=== PATIENT | female | born 1990 | race Caucasian/White ===

== ENCOUNTER 2022-08-15 17:22 | Inpatient (IN) ==
[2022-08-15] MEDS ORDERED: OXYTOCIN 30 UNITS/500 ML BAG IV PRN (18:45)
[2022-08-15] MEDS ORDERED: LIDOCAINE 1% LOCAL 20 ML VIAL INFIL PRN (18:45)
[2022-08-15] MEDS ORDERED: MAG SULFATE 6GM BOLUS FROM BAG IV ONE (18:48)
[2022-08-15] MEDS ORDERED: LABETALOL HCL IV 5 MG/ML 20ML IV ONE (19:00)
[2022-08-15] MEDS: LACTATED RINGER'S 1,000 ML IV PRN ×2 (19:00→21:40)
[2022-08-15] MEDS ORDERED: MAGNESIUM SULFATE 40GM / WTR 1,000 ML BAG IV ONE (19:00)
[2022-08-15] MEDS: LABETALOL HCL IV 5 MG/ML 20ML IV STA ×2 (19:04→21:36)
[2022-08-15 19:11] LABS: Hematocrit (blood only) 32.2 % (34.1-44.9); Hemoglobin 10.5 g/dl (12.0-16.0); Mean Corpuscular Hemoglobin 25.5 pg (25.0-34.0); Mean Corpuscular Hgb Conc 32.6 g/dL (32.0-36.0); Mean Corpuscular Volume 78.3 fL (80.0-100.0); Mean Platelet Volume 10.5 fL (9.4-12.3); Platelet Count 255 K/uL (130-400); RDW Coefficient of Variation 14.6 % (11.5-14.5); Red Blood Count 4.11 M/uL (3.93-5.22); White Blood Count 10.36 K/ul (4.8-10.8)
[2022-08-15 19:34] LABS: Alanine Aminotransferase 8 U/L (7-52); Albumin Globulin Ratio 1.1 (0.9-2); Albumin Level 3.1 gm/dl (3.4-5.0); Alkaline Phosphatase 213 U/L (34-104); Anion Gap 9 (3-11); Aspartate Aminotransferase 12 U/L (13-39); BUN Creatinine Ratio 21.3 (10-20); Bilirubin Direct 0.1 mg/dl (0-0.2); Bilirubin,Total 0.4 mg/dl (0.2-1.0); Blood Urea Nitrogen 10 mg/dl (6-23); Carbon Dioxide 21 mmol/L (21-32); Chloride 106 mmol/L (98-107); Creatinine Clr Calc Pharmacy 221.6 ml/min; Est GFR (African American) > 150.0 ml/min; Est GFR (Non-African American) 131.6 ml/min; Globulin 2.9 gm/dl (2.5-4.0); Glucose 106 mg/dl (70-99(Fasting)); Potassium 3.7 mmol/L (3.5-5.1); Sodium 136 mmol/L (136-145); Uric Acid 4.9 mg/dl (2.6-7.2)
--- NOTE | 2022-08-15 19:42 | History & Physical Report ---
Date of Service August 15, 2022 Assessment & Plan (1) Pre-eclampsia or eclampsia superimposed on pre-existing hypertension, antepartum: Plan: Start Magnesium sulfate Induction of labor/Cervidil for ripening Admission and Anticipated Discharge Date Admission Date: August 15, 2022 History of Present Illness Chief Complaint: elevated blood pressure Primary Care Provider: Matilda Donis 32 F P0000 at 37.3 weeks admitted for IOL for gestational hypertension first diagnosed 07/19/22. She denies headache, blurred vision, nausea/vomiting or RUQ pain. GBS is negative. Covid is pending. Allergies Allergy/AdvReac Type Severity Reaction Status Date / Time No Known Allergies Allergy Unknown Unverified 05/10/09 10:45 [id number] Allergy Unknown Uncoded 09/25/02 15:12 Home Medications Medication Instructions Recorded Confirmed Type Amphetamine Asp/Sulf/Dextramph 50 mg PO DAILY ##0 05/10/09 History (Adderall Ext Rel *) cetirizine 10 mg capsule (Zyrtec) 10 mg PO DAILY PRN allergies 08/15/22 08/15/22 History levothyroxine 100 mcg PO DAILY 08/15/22 08/15/22 History omeprazole magnesium 20 mg 20 mg PO DAILY 08/15/22 08/15/22 History tablet,delayed release (Prilosec OTC) vit 10-iron fum-folic 1 tab PO 08/15/22 History Patient History Medical History ADHD (attention deficit hyperactivity disorder) Allergic rhinitis Antepartum anemia GERD (gastroesophageal reflux disease) Gestational hypertension Hypothyroid Obesity Psoriasis Surgical History H/O foot surgery History of tonsillectomy and adenoidectomy [place] teeth removed Social History Smoking Status: Former smoker Hx Alcohol Use: No Hx Substance Use: No Preferred Language: [place] [employer] 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 Beliefs That Will Affect Care: None marital status: Single Current Living Situation: Significant Other Assistive Devices: None OB History primigravida [employer] History neg Review of Systems All systems reviewed & are unremarkable except as noted in HPI & below Physical Exam Constitutional: WD/WN, vitals as above Respiratory: normal respiratory effort, lungs clear to auscultation Cardiovascular: Rate/Rhythm: regular rate and regular rhythm Gastrointestinal (Abdomen): Inspection/Auscultation: abdomen normal to inspection no abdominal pain, no RUQ pain Skin: no rashes, warm and dry Neurologic: patellar DTR's 2+ bilat, sensation intact Psychiatric: A+Ox3, euthymic affect Genitourinary: no vaginal lesions, no adnexal mass Manual OB Exam: + cervical dilation fingertip, + cervical effacement 30% and + station high Cervix closed/thick and high Results & Data ([facility]) Vital Signs (Past 12 Hours) Vital Signs Temp Pulse Resp BP 08/15/22 17:49 36.8 C 22 08/15/22 19:33 88 08/15/22 19:33 146/85 H 08/15/22 19:16 88 08/15/22 19:16 140/88 08/15/22 19:12 82 08/15/22 19:12 148/92 H 08/15/22 19:06 84 08/15/22 19:06 142/92 H 08/15/22 18:56 85 08/15/22 18:56 157/93 H 08/15/22 18:46 78 08/15/22 18:46 168/101 H 08/15/22 18:36 80 08/15/22 18:36 170/98 H 08/15/22 18:07 84 08/15/22 18:07 153/105 H 08/15/22 17:55 91 H 08/15/22 17:55 152/97 H 08/15/22 17:46 82 157/97 H 08/15/22 17:34 83 159/105 H Laboratory Results Laboratory Results - last 24 hr 08/15/22 08/15/22 08/15/22 18:05 18:05 18:05 WBC RBC Hgb Hct MCV MCH MCHC RDW Std Deviation RDW Coeff of Anamaria Plt Count MPV Sodium Potassium Chloride Carbon Dioxide Anion Gap BUN Creatinine Est Cr Clr Drug Dosing Est GFR ( Amer) Est GFR (Non-Af Amer) BUN/Creatinine Ratio Glucose Uric Acid Calcium Total Bilirubin Direct Bilirubin AST ALT Alkaline Phosphatase Lactate Dehydrogenase Total Protein Albumin Globulin Albumin/Globulin Ratio Urine Color Pending Urine Appearance Pending Urine pH Pending Ur Specific Dix Pending Urine Protein Pending Urine Glucose (UA) Pending Urine Ketones Pending Urine Blood Pending Urine Nitrite Pending Urine Bilirubin Pending Urine Urobilinogen Pending Ur Leukocyte Esterase Pending Ur Random Creatinine Pending U Random Total Protein Pending Protein/Creatinin Ratio Pending SARS-CoV-2, RNA, NAAT Pending 08/15/22 08/15/22 08/15/22 19:03 19:03 19:03 WBC 10.36 RBC 4.11 Hgb 10.5 L Hct 32.2 L MCV 78.3 L MCH 25.5 MCHC 32.6 RDW Std Deviation 41.0 RDW Coeff of Anamaria 14.6 H Plt Count 255 MPV 10.5 Sodium 136 Potassium 3.7 Chloride 106 Carbon Dioxide 21 Anion Gap 9 BUN 10 Creatinine 0.47 L Est Cr Clr Drug Dosing 221.6 Est GFR ( Amer) > 150.0 Est GFR (Non-Af Amer) 131.6 BUN/Creatinine Ratio 21.3 H Glucose 106 H Uric Acid 4.9 Calcium 9.0 Total Bilirubin 0.4 Direct Bilirubin 0.1 AST 12 L ALT 8 Alkaline Phosphatase 213 H Lactate Dehydrogenase Pending Total Protein 6.0 Albumin 3.1 L Globulin 2.9 Albumin/Globulin Ratio 1.1 Urine Color Urine Appearance Urine pH Ur Specific Dix Urine Protein Urine Glucose (UA) Urine Ketones Urine Blood Urine Nitrite Urine Bilirubin Urine Urobilinogen Ur Leukocyte Esterase Ur Random Creatinine U Random Total Protein Protein/Creatinin Ratio SARS-CoV-2, RNA, NAAT Code Status & VTE Plan VTE Prophylaxis Plan VTE Prophylaxis will be ordered: No Monitoring External Monitor Cat 1
[2022-08-15] MEDS: MAGNESIUM SULFATE / WTR 40 GM/1,000 ML BAG IV SCH (19:43)
[2022-08-15 19:59] LABS: Appearance Urine Clear (Clear); Bilirubin Urine Negative (Negative); Blood Urine Negative (Negative); Color Urine Yellow; Creatinine Urine Random 41.6 mg/dl; Glucose Urine UA Negative (Negative); Ketones Urine Negative (Negative); Leukocyte Esterase Urine Negative (Negative); Nitrite Urine Negative (Negative); Protein Creatinine Ratio Urine 0.4 (0-0.2); Protein Urine Negative (Negative); Specific Gravity Urine 1.011 (1.000-1.030); Total Protein Urine Random 17.2 mg/dl (0-11.9); Urobilinogen Urine Negative (Negative); pH Urine 5.5 (4.5-7.5)
[2022-08-15] MEDS ORDERED: DINOPROSTONE 10 MG INSERT PV ONE (20:04)
--- NOTE | 2022-08-15 20:22 | Labor Progress Brief Note ---
Date of Service August 15, 2022 Assessment & Plan Admission and Anticipated Discharge Date Admission Date: August 15, 2022 Physical Exam Genitourinary: OB Exam Monitor Tracing: + external FHT monitor used, + external uterine monitor used, + category I and + normal FHT variability Cervidil 10 mg placed vaginally Results & Data ([facility]) Vital Signs (Past 12 Hours) Vital Signs Temp Pulse Resp BP 08/15/22 20:15 18 08/15/22 20:00 18 08/15/22 19:45 18 08/15/22 19:30 18 08/15/22 19:13 18 08/15/22 17:49 36.8 C 22 08/15/22 20:02 96 H 08/15/22 20:02 142/85 H 08/15/22 19:47 90 08/15/22 19:47 140/79 08/15/22 19:00 18 08/15/22 19:00 36.6 C 18 08/15/22 19:33 88 08/15/22 19:33 146/85 H 08/15/22 19:16 88 08/15/22 19:16 140/88 08/15/22 19:12 82 08/15/22 19:12 148/92 H 08/15/22 19:06 84 08/15/22 19:06 142/92 H 08/15/22 18:56 85 08/15/22 18:56 157/93 H 08/15/22 18:46 78 08/15/22 18:46 168/101 H 08/15/22 18:36 80 08/15/22 18:36 170/98 H 08/15/22 18:07 84 08/15/22 18:07 153/105 H 08/15/22 17:55 91 H 08/15/22 17:55 152/97 H 08/15/22 17:46 82 157/97 H 08/15/22 17:34 83 159/105 H
[2022-08-16] MEDS: LACTATED RINGER'S 1,000 ML IV PRN ×2 (05:06→13:11)
[2022-08-16] MEDS ORDERED: LABETALOL HCL IV 5 MG/ML 20ML IV STA ×4 (08:24→20:05)
--- NOTE | 2022-08-16 08:27 | Progress Note ---
Date of Service August 16, 2022 Assessment & Plan (1) Pre-eclampsia or eclampsia superimposed on pre-existing hypertension, antepartum: Plan: Continue Mag IV labetalol 20mg stat Andujar, SCDs, Labs q12 Admission and Anticipated Discharge Date Admission Date: August 15, 2022 Subjective Noted multiple sever range BP, no Andujar in place, patient has been ambulating on Mag Results & Data ([facility]) Vital Signs (Past 12 Hours) Vital Signs Temp Pulse Resp BP Pulse Ox 08/16/22 07:10 18 08/16/22 06:00 18 08/16/22 05:00 18 08/16/22 04:00 18 08/16/22 02:00 18 08/16/22 01:00 18 08/16/22 00:00 18 08/15/22 23:00 18 08/15/22 22:01 20 08/15/22 21:01 20 08/16/22 08:23 80 95 08/16/22 08:18 80 96 08/16/22 08:19 80 162/95 H 08/16/22 08:17 80 167/97 H 08/16/22 08:13 81 95 08/16/22 08:08 81 97 08/16/22 08:03 77 97 08/16/22 08:04 77 169/94 H 08/16/22 07:58 78 97 08/16/22 07:53 79 96 08/16/22 07:50 81 187/98 H 08/16/22 07:48 85 96 08/16/22 07:43 85 98 08/16/22 07:38 84 96 08/16/22 07:33 76 97 08/16/22 07:28 77 97 08/16/22 07:23 76 97 08/16/22 07:20 36.8 C 83 18 143/90 H 08/16/22 07:18 84 96 08/16/22 06:50 79 146/91 H 08/16/22 06:20 80 153/95 H 08/16/22 05:52 80 156/93 H 08/16/22 05:50 80 170/101 H 08/16/22 05:20 74 148/88 H 08/16/22 04:49 93 H 155/90 H 08/16/22 04:19 86 148/91 H 08/16/22 03:30 36.8 C 01/04/23 03:51 82 170/93 H 08/16/22 03:19 85 141/87 H 08/16/22 03:00 18 08/16/22 03:00 18 08/16/22 02:30 18 08/16/22 02:30 18 08/16/22 02:49 80 140/96 08/16/22 02:20 86 153/94 H 08/16/22 01:50 86 130/72 08/16/22 01:20 83 130/68 08/16/22 00:50 81 120/64 08/16/22 00:24 80 129/60 08/15/22 23:49 92 H 08/15/22 23:49 114/74 08/15/22 23:20 81 08/15/22 23:20 114/60 08/15/22 23:00 36.8 C 08/15/22 22:50 88 08/15/22 22:50 141/87 H 08/15/22 22:19 83 08/15/22 22:19 145/88 H 08/15/22 22:14 82 08/15/22 22:14 145/88 H 08/15/22 22:10 79 08/15/22 22:10 144/90 H 08/15/22 22:03 85 08/15/22 22:03 154/93 H 08/15/22 21:58 82 08/15/22 21:58 146/86 H 08/15/22 21:54 79 08/15/22 21:54 142/90 H 08/15/22 21:48 79 08/15/22 21:48 158/93 H 08/15/22 21:43 76 08/15/22 21:43 155/90 H 08/15/22 21:39 80 08/15/22 21:39 162/92 H 08/15/22 21:30 86 08/15/22 21:30 174/90 H 08/15/22 21:17 85 08/15/22 21:17 163/100 H
[2022-08-16 08:42] LABS: Hematocrit (blood only) 32.1 % (34.1-44.9); Hemoglobin 10.7 g/dl (12.0-16.0); Mean Corpuscular Hgb Conc 33.3 g/dL (32.0-36.0); Mean Corpuscular Volume 77.9 fL (80.0-100.0); Mean Platelet Volume 10.4 fL (9.4-12.3); Platelet Count 255 K/uL (130-400); RDW Coefficient of Variation 14.7 % (11.5-14.5); RDW Standard Deviation 41.4 fL (36.4-46.3); Red Blood Count 4.12 M/uL (3.93-5.22); White Blood Count 9.42 K/ul (4.8-10.8)
[2022-08-16] MEDS: LEVOTHYROXINE SODIUM 100 MCG TABLET PO SCH (08:46)
[2022-08-16] MEDS: ACETAMINOPHEN 500 MG TAB PO PRN ×2 (08:48→14:39)
[2022-08-16 09:07] LABS: Alanine Aminotransferase 9 U/L (7-52); Albumin Globulin Ratio 1.1 (0.9-2); Albumin Level 3.2 gm/dl (3.4-5.0); Alkaline Phosphatase 209 U/L (34-104); Anion Gap 9 (3-11); Aspartate Aminotransferase 11 U/L (13-39); BUN Creatinine Ratio 13.3 (10-20); Bilirubin,Total 0.5 mg/dl (0.2-1.0); Blood Urea Nitrogen 6 mg/dl (6-23); Calcium 7.6 mg/dl (8.5-10.1); Carbon Dioxide 21 mmol/L (21-32); Chloride 105 mmol/L (98-107); Creatinine Clr Calc Pharmacy 231.4 ml/min; Est GFR (African American) > 150.0 ml/min; Est GFR (Non-African American) 133.5 ml/min; Globulin 2.9 gm/dl (2.5-4.0); Glucose 104 mg/dl (70-99(Fasting)); Potassium 3.6 mmol/L (3.5-5.1); Sodium 135 mmol/L (136-145); Total Protein 6.1 gm/dl (6.0-8.3)
--- NOTE | 2022-08-16 09:40 | Labor Progress Brief Note ---
Date of Service August 16, 2022 Subjective Patient having headache and neck pain, just gave Tylenol Cervidil has been pulled by nursing Assessment & Plan (1) Pre-eclampsia or eclampsia superimposed on pre-existing hypertension, antepartum: Plan: Continue Mag IV labetalol 20mg stat (last dose wasn't given because repeat BP was non severe Andujar, SCDs, Labs q12 Misoprostol 25 mcg SL q4h, then pit and AROM, epidural if patient requests Anticipate Admission and Anticipated Discharge Date Admission Date: August 15, 2022 Physical Exam Physical Exam: General: Alert, no acute distress, oriented x3 Lungs: Clear to auscultation bilaterally Cardiovascular: Regular rate and rhythm no added sounds Abdomen: Soft nontender, obese Extremities: Positive pedal pulses, +2 DTRs Urine output adequate Genitourinary: heart tracing: Baseline 130, moderate variability, positive accelerations, no decelerations, category 1 tracing Tocometer: Irregular contractions Cervix: 3 Results & Data ([facility] [place]) Vital Signs (Past 12 Hours) Vital Signs Temp Pulse Resp BP Pulse Ox 08/16/22 07:10 18 08/16/22 06:00 18 08/16/22 05:00 18 08/16/22 04:00 18 08/16/22 02:00 18 08/16/22 01:00 18 08/16/22 00:00 18 08/15/22 23:00 18 08/15/22 22:01 20 08/16/22 09:33 80 97 08/16/22 09:28 82 96 08/16/22 09:23 82 97 08/16/22 09:18 80 95 08/16/22 09:17 78 168/89 H 08/16/22 09:13 83 95 08/16/22 09:14 82 94 08/16/22 09:08 87 96 08/16/22 09:06 82 94 08/16/22 09:03 83 95 08/16/22 08:58 86 95 08/16/22 08:53 78 95 08/16/22 08:48 83 94 08/16/22 08:49 86 94 08/16/22 08:45 80 165/83 H 08/16/22 08:43 85 95 08/16/22 08:44 82 94 08/16/22 08:41 75 144/86 H 08/16/22 08:38 78 94 08/16/22 08:33 82 94 08/16/22 08:00 18 08/16/22 08:00 18 08/16/22 08:28 77 95 08/16/22 08:23 80 95 08/16/22 08:18 80 96 08/16/22 08:19 80 162/95 H 08/16/22 08:17 80 167/97 H 08/16/22 08:13 81 95 08/16/22 08:08 81 97 08/16/22 08:03 77 97 08/16/22 08:04 77 169/94 H 08/16/22 07:58 78 97 08/16/22 07:53 79 96 08/16/22 07:50 81 187/98 H 08/16/22 07:48 85 96 08/16/22 07:43 85 98 08/16/22 07:38 84 96 08/16/22 07:33 76 97 08/16/22 07:28 77 97 08/16/22 07:23 76 97 08/16/22 07:20 36.8 C 83 18 143/90 H 08/16/22 07:18 84 96 08/16/22 06:50 79 146/91 H 08/16/22 06:20 80 153/95 H 08/16/22 05:52 80 156/93 H 08/16/22 05:50 80 170/101 H 08/16/22 05:20 74 148/88 H 08/16/22 04:49 93 H 155/90 H 08/16/22 04:19 86 148/91 H 08/16/22 03:30 36.8 C 08/16/22 03:51 82 170/93 H 08/16/22 03:19 85 141/87 H 08/16/22 03:00 18 08/16/22 03:00 18 08/16/22 02:30 18 08/16/22 02:30 18 08/16/22 02:49 80 140/96 08/16/22 02:20 86 153/94 H 08/16/22 01:50 86 130/72 08/16/22 01:20 83 130/68 08/16/22 00:50 81 120/64 08/16/22 00:24 80 129/60 08/15/22 23:49 92 H 08/15/22 23:49 114/74 08/15/22 23:20 81 08/15/22 23:20 114/60 08/15/22 23:00 36.8 C 08/15/22 22:50 88 08/15/22 22:50 141/87 H 08/15/22 22:19 83 08/15/22 22:19 145/88 H 08/15/22 22:14 82 08/15/22 22:14 145/88 H 08/15/22 22:10 79 08/15/22 22:10 144/90 H 08/15/22 22:03 85 08/15/22 22:03 154/93 H 08/15/22 21:58 82 08/15/22 21:58 146/86 H 08/15/22 21:54 79 08/15/22 21:54 142/90 H 08/15/22 21:48 79 08/15/22 21:48 158/93 H 08/15/22 21:43 76 08/15/22 21:43 155/90 H 08/15/22 21:39 80 08/15/22 21:39 162/92 H
[2022-08-16] MEDS: miSOPROStoL 25 MCG TAB SL SCH ×4 (10:32→22:33)
[2022-08-16] MEDS: MAGNESIUM SULFATE / WTR 40 GM/1,000 ML BAG IV SCH (10:49)
--- NOTE | 2022-08-16 16:48 | Labor Progress Brief Note ---
Date of Service August 16, 2022 Subjective Patient comfortable in bed at this time, no complaints Assessment & Plan (1) Pre-eclampsia or eclampsia superimposed on pre-existing hypertension, antepartum: Plan: Continue Mag Has been treated with IV labetalol 20 mg IV push x2 doses Andujar, SCDs, Labs q12 Misoprostol 25 mcg SL q4h (has had 2 doses so far, next dose scheduled for 6:30 PM), then pit and AROM, epidural if patient requests Anticipate Admission and Anticipated Discharge Date Admission Date: August 15, 2022 Physical Exam Physical Exam: General: Alert, no acute distress, oriented x3 Lungs: Clear to auscultation bilaterally Cardiovascular: Regular rate and rhythm no added sounds Abdomen: Soft nontender, obese Extremities: Positive pedal pulses, +2 DTRs Urine output adequate (350mls last hr) Genitourinary: heart tracing: Baseline 1 25- 30, moderate variability, positive accelerations, no decelerations, category 1 tracing Tocometer: Contractions irregular Cervix: 09/11/ Results & Data ([facility]) Vital Signs (Past 12 Hours) Vital Signs Temp Pulse Resp BP Pulse Ox 08/16/22 14:00 18 08/16/22 13:00 16 08/16/22 12:00 16 08/16/22 11:00 20 08/16/22 10:00 18 08/16/22 07:10 18 08/16/22 06:00 18 08/16/22 05:00 18 08/16/22 16:43 74 95 08/16/22 16:39 78 92 08/16/22 16:38 77 94 08/16/22 16:33 80 93 08/16/22 16:32 74 147/89 H 08/16/22 16:28 79 95 08/16/22 16:27 75 141/84 H 08/16/22 16:24 77 92 08/16/22 16:23 74 144/84 H 93 08/16/22 16:18 74 147/85 H 93 08/16/22 16:13 77 92 08/16/22 16:12 74 141/81 H 08/16/22 16:08 82 138/79 94 08/16/22 16:03 78 95 08/16/22 16:01 82 163/93 H 08/16/22 15:58 83 96 08/16/22 15:53 79 95 08/16/22 15:48 78 96 08/16/22 15:43 77 164/88 H 96 08/16/22 15:38 77 96 08/16/22 15:33 81 96 08/16/22 15:28 78 95 08/16/22 15:23 77 96 08/16/22 15:18 83 99 08/16/22 15:13 86 97 08/16/22 15:12 74 18 157/97 H 08/16/22 15:08 86 100 08/16/22 15:00 18 08/16/22 15:00 36.7 C 18 08/16/22 15:03 81 98 08/16/22 14:58 80 97 08/16/22 14:53 76 94 08/16/22 14:48 82 96 08/16/22 14:43 79 96 08/16/22 14:38 78 95 08/16/22 14:33 81 95 08/16/22 14:28 79 95 08/16/22 14:23 84 95 08/16/22 14:18 78 96 08/16/22 14:13 80 93 08/16/22 14:12 81 138/85 94 08/16/22 14:08 77 94 08/16/22 14:04 85 94 08/16/22 14:03 84 95 08/16/22 13:59 84 94 08/16/22 13:58 86 93 08/16/22 13:53 77 93 08/16/22 13:48 78 93 08/16/22 13:43 93 08/16/22 13:43 77 08/16/22 13:43 77 94 08/16/22 13:42 80 141/88 H 08/16/22 13:38 80 92 08/16/22 13:33 79 92 08/16/22 13:30 78 94 08/16/22 13:28 83 94 08/16/22 13:23 76 93 08/16/22 13:24 77 94 08/16/22 13:18 94 08/16/22 13:18 78 08/16/22 13:18 75 94 08/16/22 13:13 75 94 08/16/22 13:12 94 08/16/22 13:12 73 08/16/22 13:12 72 143/84 H 08/16/22 13:08 79 95 08/16/22 13:07 77 94 08/16/22 13:03 74 94 08/16/22 13:01 74 94 08/16/22 12:58 79 94 08/16/22 12:55 87 94 08/16/22 12:53 83 95 08/16/22 12:50 78 94 08/16/22 12:48 80 94 08/16/22 12:43 94 08/16/22 12:43 82 08/16/22 12:43 81 94 08/16/22 12:42 79 20 141/84 H 08/16/22 12:38 95 08/16/22 12:38 79 08/16/22 12:38 82 94 08/16/22 12:33 93 08/16/22 12:33 81 08/16/22 12:33 80 93 08/16/22 12:28 83 94 08/16/22 12:23 85 93 08/16/22 12:18 81 93 08/16/22 12:13 93 08/16/22 12:13 80 08/16/22 12:13 76 140/77 08/16/22 12:11 78 93 08/16/22 12:08 77 94 08/16/22 12:03 76 94 08/16/22 11:58 79 92 08/16/22 11:53 76 93 08/16/22 11:50 74 94 08/16/22 11:48 76 93 08/16/22 11:43 94 08/16/22 11:43 76 08/16/22 11:43 77 137/81 08/16/22 11:42 77 94 08/16/22 11:38 81 94 08/16/22 11:36 80 94 08/16/22 11:33 77 97 08/16/22 11:28 76 96 08/16/22 11:23 79 96 08/16/22 11:18 79 95 08/16/22 11:13 79 95 08/16/22 11:12 75 141/86 H 08/16/22 11:08 83 97 08/16/22 11:03 82 97 08/16/22 11:00 20 08/16/22 11:00 36.8 C 20 08/16/22 10:58 81 97 08/16/22 10:53 79 95 01/04/23 10:48 75 96 08/16/22 10:44 80 93 08/16/22 10:43 79 96 08/16/22 10:42 76 137/81 08/16/22 10:38 81 97 08/16/22 10:33 77 95 08/16/22 10:28 84 94 08/16/22 10:27 74 94 08/16/22 10:23 71 94 08/16/22 10:18 69 95 08/16/22 10:19 72 94 08/16/22 10:13 75 94 08/16/22 10:08 69 147/84 H 94 08/16/22 10:06 74 94 08/16/22 10:03 93 08/16/22 10:03 74 08/16/22 10:03 75 143/84 H 08/16/22 10:00 71 18 94 08/16/22 09:58 96 08/16/22 09:58 74 08/16/22 09:58 75 143/86 H 08/16/22 09:53 74 96 08/16/22 09:54 76 18 139/80 08/16/22 09:48 95 08/16/22 09:48 79 08/16/22 09:48 76 137/78 94 08/16/22 09:43 96 08/16/22 09:43 80 08/16/22 09:43 75 144/82 H 93 08/16/22 09:38 80 143/84 H 96 08/16/22 09:33 80 97 08/16/22 09:28 82 96 08/16/22 09:23 82 97 08/16/22 09:18 80 95 08/16/22 09:17 78 168/89 H 08/16/22 09:13 83 95 08/16/22 09:14 82 94 08/16/22 09:08 87 96 08/16/22 09:06 82 94 08/16/22 09:00 18 08/16/22 09:03 83 95 08/16/22 08:58 86 95 08/16/22 08:53 78 95 08/16/22 08:48 83 94 08/16/22 08:49 86 94 08/16/22 08:45 80 165/83 H 08/16/22 08:43 85 95 08/16/22 08:44 82 94 08/16/22 08:41 75 144/86 H 08/16/22 08:38 78 94 08/16/22 08:33 82 94 08/16/22 08:00 18 08/16/22 08:00 18 08/16/22 08:28 77 95 08/16/22 08:23 80 95 08/16/22 08:18 80 96 08/16/22 08:19 80 162/95 H 08/16/22 08:17 80 167/97 H 08/16/22 08:13 81 95 08/16/22 08:08 81 97 08/16/22 08:03 77 97 08/16/22 08:04 77 169/94 H 08/16/22 07:58 78 97 08/16/22 07:53 79 96 08/16/22 07:50 81 187/98 H 08/16/22 07:48 85 96 08/16/22 07:43 85 98 08/16/22 07:38 84 96 08/16/22 07:33 76 97 08/16/22 07:28 77 97 08/16/22 07:23 76 97 08/16/22 07:20 36.8 C 83 18 143/90 H 08/16/22 07:18 84 96 08/16/22 06:50 79 146/91 H 08/16/22 06:20 80 153/95 H 08/16/22 05:52 80 156/93 H 08/16/22 05:50 80 170/101 H 08/16/22 05:20 74 148/88 H 08/16/22 04:49 93 H 155/90 H
[2022-08-17] MEDS: miSOPROStoL 25 MCG TAB SL SCH ×4 (02:16→19:49)
[2022-08-17] MEDS: LACTATED RINGER'S 1,000 ML IV PRN ×2 (02:24→11:59)
[2022-08-17] MEDS ORDERED: OXYTOCIN 30 UNITS/500 ML BAG IV PRN (04:10)
[2022-08-17] MEDS ORDERED: LABETALOL HCL IV 5 MG/ML 20ML IV STA ×2 (04:49→05:55)
[2022-08-17] MEDS: MAGNESIUM SULFATE / WTR 40 GM/1,000 ML BAG IV SCH ×2 (05:02→23:52)
[2022-08-17] MEDS: LEVOTHYROXINE SODIUM 100 MCG TABLET PO SCH (06:15)
[2022-08-17 06:30] LABS: Hematocrit (blood only) 32.2 % (34.1-44.9); Hemoglobin 10.6 g/dl (12.0-16.0); Mean Corpuscular Hemoglobin 25.7 pg (25.0-34.0); Mean Corpuscular Hgb Conc 32.9 g/dL (32.0-36.0); Mean Platelet Volume 10.3 fL (9.4-12.3); Platelet Count 250 K/uL (130-400); RDW Standard Deviation 42.2 fL (36.4-46.3); Red Blood Count 4.13 M/uL (3.93-5.22)
[2022-08-17 06:49] LABS: Alanine Aminotransferase 8 U/L (7-52); Alkaline Phosphatase 205 U/L (34-104); Anion Gap 9 (3-11); Aspartate Aminotransferase 11 U/L (13-39); BUN Creatinine Ratio 11.4 (10-20); Bilirubin,Total 0.6 mg/dl (0.2-1.0); Blood Urea Nitrogen 5 mg/dl (6-23); Calcium 7.4 mg/dl (8.5-10.1); Carbon Dioxide 21 mmol/L (21-32); Chloride 104 mmol/L (98-107); Creatinine Clr Calc Pharmacy 236.7 ml/min; Est GFR (African American) > 150.0 ml/min; Est GFR (Non-African American) 134.5 ml/min; Globulin 2.9 gm/dl (2.5-4.0); Glucose 100 mg/dl (70-99(Fasting)); Potassium 3.7 mmol/L (3.5-5.1); Sodium 134 mmol/L (136-145); Total Protein 5.9 gm/dl (6.0-8.3)
--- NOTE | 2022-08-17 07:11 | Labor Progress Brief Note ---
Date of Service August 17, 2022 Subjective Patient comfortable in bed at this time, more pain now with contractions Assessment & Plan (1) Pre-eclampsia or eclampsia superimposed on pre-existing hypertension, antepartum: Plan: Continue Mag Has been treated with IV labetalol for severe range pressures, next dose now Andujar, SCDs, Labs q12 Misoprostol 25 mcg SL Continue pit then AROM, epidural if patient requests Anticipate Admission and Anticipated Discharge Date Admission Date: August 15, 2022 Physical Exam Physical Exam: General: Alert, no acute distress, oriented x3 Lungs: Clear to auscultation bilaterally Cardiovascular: Regular rate and rhythm no added sounds Abdomen: Soft nontender, obese Extremities: Positive pedal pulses, +2 DTRs, 2+ edema Urine output adequate Genitourinary: heart tracing: Baseline: 130, moderate variability, positive accelerations, no decelerations, category 1 tracing Tocometer: Contractions every 2 to 3 minutes, oxytocin at 4 milliunits/h Cervix: 1-2/40/-3, sutures felt Results & Data ([facility]) Vital Signs (Past 12 Hours) Vital Signs Temp Pulse Resp BP Pulse Ox 08/17/22 06:04 18 08/17/22 05:00 18 08/17/22 04:00 18 08/17/22 02:10 18 08/17/22 01:02 16 08/17/22 00:01 16 08/16/22 23:00 18 08/16/22 22:00 18 08/16/22 21:00 18 08/16/22 20:01 18 08/17/22 07:00 18 08/17/22 07:00 18 08/17/22 07:03 97 08/17/22 07:03 86 08/17/22 07:03 79 168/91 H 08/17/22 07:02 83 166/88 H 08/17/22 06:58 67 91 08/17/22 06:53 68 92 08/17/22 06:48 74 165/89 H 95 08/17/22 06:46 71 87 L 08/17/22 06:43 72 93 08/17/22 06:38 70 96 08/17/22 06:33 71 94 08/17/22 06:28 76 95 08/17/22 06:23 66 97 08/17/22 06:18 72 96 08/17/22 06:16 71 147/84 H 08/17/22 06:13 80 96 08/17/22 06:12 77 162/77 H 08/17/22 06:08 78 96 08/17/22 06:03 96 08/17/22 06:03 80 08/17/22 06:03 78 130/65 08/17/22 05:58 94 08/17/22 05:58 78 08/17/22 05:58 76 155/89 H 08/17/22 05:53 81 95 08/17/22 05:52 76 179/88 H 08/17/22 05:48 78 94 08/17/22 05:30 18 08/17/22 05:30 18 08/17/22 05:47 75 150/84 H 08/17/22 05:43 81 162/85 H 95 08/17/22 05:38 74 93 08/17/22 05:37 70 134/78 08/17/22 05:33 94 08/17/22 05:33 76 08/17/22 05:33 73 139/75 05 05:28 94 08/17/22 05:28 75 08/17/22 05:28 72 135/79 05 05:23 80 93 05 05:22 73 135/79 08/17/22 05:18 78 93 08/17/22 05:17 74 139/78 08/17/22 05:13 83 94 08/17/22 05:08 75 95 08/17/22 05:07 75 143/79 H 08/17/22 05:03 74 95 08/17/22 04:58 75 96 08/17/22 04:53 79 95 08/17/22 04:48 82 92 05 04:45 85 166/80 H 05 04:43 80 92 05 04:38 81 95 05 04:37 82 169/79 H 08/17/22 04:33 78 93 05 04:28 82 92 08/17/22 04:23 79 91 05 04:18 81 92 05 04:13 84 93 05 04:08 87 91 08/17/22 04:00 36.8 C 08/17/22 04:06 80 139/70 08/17/22 04:03 86 92 08/17/22 03:58 84 92 08/17/22 03:56 85 92 08/17/22 03:53 90 95 08/17/22 03:51 81 92 08/17/22 03:48 83 92 08/17/22 03:45 79 92 08/17/22 03:43 81 92 08/17/22 03:40 83 92 08/17/22 03:38 83 94 08/17/22 03:36 86 139/68 08/17/22 03:34 87 92 08/17/22 03:33 84 93 08/17/22 03:28 86 91 08/17/22 03:23 92 08/17/22 03:23 81 08/17/22 03:23 83 92 08/17/22 03:18 92 08/17/22 03:18 84 08/17/22 03:18 83 92 08/17/22 03:13 77 93 08/17/22 03:12 81 91 08/17/22 03:08 78 93 08/17/22 03:07 89 143/89 H 08/17/22 03:06 79 92 08/17/22 03:03 82 94 08/17/22 03:01 80 92 08/17/22 02:58 85 92 08/17/22 02:53 83 93 08/17/22 02:54 81 92 08/17/22 02:48 93 08/17/22 02:48 78 08/17/22 02:48 78 92 08/17/22 02:43 82 92 08/17/22 02:42 81 92 08/17/22 02:38 82 94 08/17/22 02:36 81 137/71 08/17/22 02:33 79 93 08/17/22 02:31 80 92 08/17/22 02:28 75 93 08/17/22 02:23 76 94 08/17/22 02:19 77 92 08/17/22 02:18 81 95 08/17/22 02:13 78 90 08/17/22 02:11 74 92 08/17/22 02:08 71 91 08/17/22 02:07 83 148/83 H 08/17/22 02:06 76 92 08/17/22 02:03 85 94 08/17/22 02:00 75 92 08/17/22 01:58 80 93 08/17/22 01:54 79 92 08/17/22 01:53 83 90 08/17/22 01:48 76 92 08/17/22 01:49 77 92 08/17/22 01:43 93 08/17/22 01:43 75 08/17/22 01:43 71 92 08/17/22 01:38 92 08/17/22 01:38 79 08/17/22 01:38 85 92 08/17/22 01:36 81 144/84 H 08/17/22 01:33 80 94 08/17/22 01:28 79 92 08/17/22 01:23 80 92 08/17/22 01:19 80 92 08/17/22 01:18 80 92 08/17/22 01:13 78 92 08/17/22 01:14 78 92 08/17/22 01:08 93 08/17/22 01:08 74 08/17/22 01:08 73 92 08/17/22 01:06 75 146/81 H 08/17/22 01:03 81 94 08/17/22 01:01 83 90 08/17/22 00:58 74 95 08/17/22 00:56 82 92 08/17/22 00:53 86 88 L 08/17/22 00:50 86 89 L 08/17/22 00:48 84 88 L 08/17/22 00:45 76 91 08/17/22 00:43 73 93 08/17/22 00:40 73 92 08/17/22 00:38 86 95 08/17/22 00:37 72 144/79 H 08/17/22 00:34 75 91 08/17/22 00:33 72 92 08/17/22 00:28 74 92 08/17/22 00:23 71 92 08/17/22 00:21 69 92 08/17/22 00:18 75 91 08/17/22 00:15 74 92 08/17/22 00:13 81 95 08/17/22 00:08 79 97 08/17/22 00:07 71 157/87 H 08/17/22 00:05 77 92 08/17/22 00:03 81 95 08/17/22 00:00 72 91 01/04/23 23:58 70 91 08/16/22 23:54 73 92 08/16/22 23:53 75 94 08/16/22 23:48 73 93 08/16/22 23:49 71 92 08/16/22 23:43 70 91 08/16/22 23:38 79 93 08/16/22 23:37 73 92 08/16/22 23:36 76 159/90 H 08/16/22 23:33 72 94 08/16/22 23:32 73 92 08/16/22 23:28 71 93 08/16/22 23:23 77 93 08/16/22 23:21 71 92 08/16/22 23:18 73 93 08/16/22 23:15 76 92 08/16/22 23:13 72 92 08/16/22 23:08 71 92 08/16/22 23:09 74 92 08/16/22 23:06 79 157/90 H 08/16/22 23:02 72 92 08/16/22 23:03 70 94 08/16/22 23:00 36.6 C 08/16/22 22:58 79 96 08/16/22 22:53 86 96 08/16/22 22:48 72 93 08/16/22 22:43 76 93 08/16/22 22:38 79 97 08/16/22 22:37 70 123/73 08/16/22 22:33 70 97 08/16/22 22:28 69 95 08/16/22 22:23 82 97 08/16/22 22:18 72 95 08/16/22 22:13 75 94 08/16/22 22:08 76 94 08/16/22 22:06 72 142/92 H 08/16/22 22:03 73 96 08/16/22 21:58 85 96 08/16/22 21:53 70 91 08/16/22 21:49 73 92 08/16/22 21:48 65 95 08/16/22 21:43 68 93 08/16/22 21:40 75 91 08/16/22 21:38 68 94 08/16/22 21:36 67 140/77 08/16/22 21:33 71 94 08/16/22 21:28 71 94 08/16/22 21:23 73 94 08/16/22 21:18 75 96 08/16/22 21:13 73 95 08/16/22 21:08 72 96 08/16/22 21:06 70 157/94 H 08/16/22 21:03 85 95 08/16/22 21:00 75 149/90 H 08/16/22 20:58 77 95 08/16/22 20:55 73 156/90 H 08/16/22 20:53 74 96 08/16/22 20:50 92 08/16/22 20:50 74 08/16/22 20:50 71 147/90 H 08/16/22 20:48 70 97 08/16/22 20:45 73 150/94 H 08/16/22 20:43 80 93 08/16/22 20:40 72 144/92 H 08/16/22 20:38 75 93 08/16/22 20:35 76 142/90 H 08/16/22 20:33 77 95 08/16/22 20:30 74 148/88 H 08/16/22 20:28 77 95 08/16/22 20:25 72 147/88 H 08/16/22 20:23 70 94 08/16/22 20:20 72 139/88 08/16/22 20:18 71 95 08/16/22 20:15 77 142/84 H 08/16/22 20:13 71 96 08/16/22 20:08 76 95 08/16/22 20:03 83 175/95 H 96 08/16/22 19:58 73 97 08/16/22 19:53 78 96 08/16/22 19:48 81 95 08/16/22 19:43 76 98 08/16/22 19:38 77 97 08/16/22 19:33 95 08/16/22 19:33 76 08/16/22 19:33 77 143/85 H 08/16/22 19:28 78 96 08/16/22 19:23 76 97 08/16/22 19:18 74 95 08/16/22 19:13 73 95
--- NOTE | 2022-08-17 09:12 | Obstetrical Progress Note ---
Date of Service August 17, 2022 Assessment & Plan Admission and Anticipated Discharge Date Admission Date: August 15, 2022 Subjective Patient is seen and examined. Reviewed her records and confirmed with her. 32 yo at 37.5 wks, Admitted on 1/ evening for IOL for preeclampsia with severe features. Started on IV magnesium for seizure prophylaxis, labs including, platelets and LFT's are WNL. Received 1 Cervidil and 5 doese of PO Cytotec and now on IV Oxytocin at 8 miu/min No NGUYEN/ Change in vision/ N&V/ Epig or RUQ pain. Has not been feeling ctxs, NO LOF/VB +FM's FHR categ I VE; 1-2 cm/ thick/ posterior and high, still unfavorable Recommended Andujar baloon mech dilatation with Pitocin She agreed. Bed side US is done by myself: Vertex, AFV WNL, plac ant, EFW 3300 gr, FM's seen Patient is placed in lithotomy position and speculum is placed in the vagina. The cervix is visualized and cleaned with Betadine sticks. And a Andujar catheter was passed through the cervix and its balloon was inflated with 40 mL of sterile water. It was attached to upper medial thigh with gentle traction. The patient tolerated procedure well. Plan is to continue with IV oxytocin, IV magnesium, Stadol for pain and then epidural, AROM when able. Continue to monitor closely, All questions were answered. Results & Data ([facility]) Vital Signs (Past 12 Hours) Vital Signs Temp Pulse Resp BP Pulse Ox 08/17/22 08:00 18 08/17/22 07:05 36.9 C 18 08/17/22 07:05 18 08/17/22 06:04 18 08/17/22 05:00 18 08/17/22 04:00 18 08/17/22 02:10 18 08/17/22 01:02 16 08/17/22 00:01 16 08/16/22 23:00 18 08/16/22 22:00 18 08/17/22 09:06 76 95 08/17/22 09:01 79 93 08/17/22 08:56 72 94 08/17/22 08:51 75 92 08/17/22 08:48 72 135/80 08/17/22 08:46 69 92 08/17/22 08:41 69 92 08/17/22 08:36 68 94 08/17/22 08:31 72 92 08/17/22 08:26 84 95 08/17/22 08:21 77 93 08/17/22 08:16 75 95 08/17/22 08:17 71 130/81 08/17/22 08:11 83 96 08/17/22 08:06 88 95 08/17/22 07:32 18 08/17/22 07:32 36.9 C 18 08/17/22 07:53 84 94 08/17/22 07:48 85 94 08/17/22 07:43 89 96 08/17/22 07:38 81 97 08/17/22 07:28 79 95 08/17/22 07:23 78 95 08/17/22 07:18 73 95 08/17/22 07:19 73 136/81 08/17/22 07:13 81 95 08/17/22 07:08 73 95 08/17/22 07:00 18 08/17/22 07:00 18 08/17/22 07:03 97 08/17/22 07:03 86 08/17/22 07:03 79 168/91 H 08/17/22 07:02 83 166/88 H 08/17/22 06:58 67 91 08/17/22 06:53 68 92 08/17/22 06:48 74 165/89 H 95 08/17/22 06:46 71 87 L 08/17/22 06:43 72 93 08/17/22 06:38 70 96 08/17/22 06:33 71 94 08/17/22 06:28 76 95 08/17/22 06:23 66 97 08/17/22 06:18 72 96 08/17/22 06:16 71 147/84 H 08/17/22 06:13 80 96 08/17/22 06:12 77 162/77 H 08/17/22 06:08 78 96 08/17/22 06:03 96 08/17/22 06:03 80 08/17/22 06:03 78 130/65 08/17/22 05:58 94 08/17/22 05:58 78 08/17/22 05:58 76 155/89 H 08/17/22 05:53 81 95 08/17/22 05:52 76 179/88 H 08/17/22 05:48 78 94 05 05:30 18 08/17/22 05:30 18 08/17/22 05:47 75 150/84 H 08/17/22 05:43 81 162/85 H 95 08/17/22 05:38 74 93 08/17/22 05:37 70 134/78 05 05:33 94 05 05:33 76 05 05:33 73 139/75 05 05:28 94 05 05:28 75 08/17/22 05:28 72 135/79 05 05:23 80 93 05 05:22 73 135/79 05 05:18 78 93 05 05:17 74 139/78 08/17/22 05:13 83 94 05 05:08 75 95 08/17/22 05:07 75 143/79 H 08/17/22 05:03 74 95 08/17/22 04:58 75 96 05 04:53 79 95 05 04:48 82 92 05 04:45 85 166/80 H 08/17/22 04:43 80 92 05 04:38 81 95 08/17/22 04:37 82 169/79 H 08/17/22 04:33 78 93 08/17/22 04:28 82 92 05 04:23 79 91 05 04:18 81 92 05 04:13 84 93 05 04:08 87 91 08/17/22 04:00 36.8 C 08/17/22 04:06 80 139/70 05 04:03 86 92 05 03:58 84 92 05 03:56 85 92 05 03:53 90 95 05 03:51 81 92 05 03:48 83 92 05 03:45 79 92 05 03:43 81 92 05 03:40 83 92 05 03:38 83 94 05 03:36 86 139/68 08/17/22 03:34 87 92 08/17/22 03:33 84 93 08/17/22 03:28 86 91 08/17/22 03:23 92 08/17/22 03:23 81 08/17/22 03:23 83 92 08/17/22 03:18 92 08/17/22 03:18 84 08/17/22 03:18 83 92 08/17/22 03:13 77 93 08/17/22 03:12 81 91 08/17/22 03:08 78 93 08/17/22 03:07 89 143/89 H 08/17/22 03:06 79 92 08/17/22 03:03 82 94 08/17/22 03:01 80 92 08/17/22 02:58 85 92 08/17/22 02:53 83 93 08/17/22 02:54 81 92 08/17/22 02:48 93 08/17/22 02:48 78 08/17/22 02:48 78 92 08/17/22 02:43 82 92 08/17/22 02:42 81 92 08/17/22 02:38 82 94 08/17/22 02:36 81 137/71 08/17/22 02:33 79 93 08/17/22 02:31 80 92 08/17/22 02:28 75 93 08/17/22 02:23 76 94 08/17/22 02:19 77 92 08/17/22 02:18 81 95 08/17/22 02:13 78 90 08/17/22 02:11 74 92 08/17/22 02:08 71 91 08/17/22 02:07 83 148/83 H 08/17/22 02:06 76 92 08/17/22 02:03 85 94 08/17/22 02:00 75 92 08/17/22 01:58 80 93 08/17/22 01:54 79 92 08/17/22 01:53 83 90 08/17/22 01:48 76 92 08/17/22 01:49 77 92 08/17/22 01:43 93 08/17/22 01:43 75 08/17/22 01:43 71 92 08/17/22 01:38 92 08/17/22 01:38 79 08/17/22 01:38 85 92 08/17/22 01:36 81 144/84 H 08/17/22 01:33 80 94 08/17/22 01:28 79 92 08/17/22 01:23 80 92 08/17/22 01:19 80 92 08/17/22 01:18 80 92 08/17/22 01:13 78 92 08/17/22 01:14 78 92 08/17/22 01:08 93 08/17/22 01:08 74 08/17/22 01:08 73 92 08/17/22 01:06 75 146/81 H 08/17/22 01:03 81 94 08/17/22 01:01 83 90 08/17/22 00:58 74 95 08/17/22 00:56 82 92 08/17/22 00:53 86 88 L 08/17/22 00:50 86 89 L 08/17/22 00:48 84 88 L 08/17/22 00:45 76 91 08/17/22 00:43 73 93 08/17/22 00:40 73 92 08/17/22 00:38 86 95 08/17/22 00:37 72 144/79 H 08/17/22 00:34 75 91 08/17/22 00:33 72 92 08/17/22 00:28 74 92 08/17/22 00:23 71 92 08/17/22 00:21 69 92 08/17/22 00:18 75 91 08/17/22 00:15 74 92 08/17/22 00:13 81 95 08/17/22 00:08 79 97 08/17/22 00:07 71 157/87 H 08/17/22 00:05 77 92 08/17/22 00:03 81 95 08/17/22 00:00 72 91 08/16/22 23:58 70 91 08/16/22 23:54 73 92 08/16/22 23:53 75 94 08/16/22 23:48 73 93 08/16/22 23:49 71 92 08/16/22 23:43 70 91 08/16/22 23:38 79 93 08/16/22 23:37 73 92 08/16/22 23:36 76 159/90 H 08/16/22 23:33 72 94 08/16/22 23:32 73 92 08/16/22 23:28 71 93 08/16/22 23:23 77 93 08/16/22 23:21 71 92 08/16/22 23:18 73 93 08/16/22 23:15 76 92 08/16/22 23:13 72 92 08/16/22 23:08 71 92 08/16/22 23:09 74 92 08/16/22 23:06 79 157/90 H 08/16/22 23:02 72 92 08/16/22 23:03 70 94 08/16/22 23:00 36.6 C 08/16/22 22:58 79 96 08/16/22 22:53 86 96 08/16/22 22:48 72 93 08/16/22 22:43 76 93 08/16/22 22:38 79 97 08/16/22 22:37 70 123/73 08/16/22 22:33 70 97 08/16/22 22:28 69 95 08/16/22 22:23 82 97 08/16/22 22:18 72 95 08/16/22 22:13 75 94 08/16/22 22:08 76 94 08/16/22 22:06 72 142/92 H 08/16/22 22:03 73 96 08/16/22 21:58 85 96 08/16/22 21:53 70 91 08/16/22 21:49 73 92 08/16/22 21:48 65 95 08/16/22 21:43 68 93 08/16/22 21:40 75 91 08/16/22 21:38 68 94 08/16/22 21:36 67 140/77 08/16/22 21:33 71 94 08/16/22 21:28 71 94 08/16/22 21:23 73 94 08/16/22 21:18 75 96 08/16/22 21:13 73 95
[2022-08-17] MEDS ORDERED: BUTORPHANOL TARTRATE 1 MG/ML VIAL IM PRN (09:45)
[2022-08-17] MEDS ORDERED: BUTORPHANOL TARTRATE 1 MG/ML VIAL IV PRN (10:22)
[2022-08-17] MEDS ORDERED: Nursing to Pharmacy Communication SCH (10:30)
[2022-08-17] MEDS ORDERED: ePHEDrine sulfate 50 MG/ML AMP ONE (11:45)
[2022-08-17] MEDS ORDERED: fentaNYL citrate 100 MCG/2 ML VIAL ONE (11:46)
[2022-08-17] MEDS ORDERED: BUPIVACAINE 0.25% 30 ML VIAL ONE ×2 (11:46→23:36)
[2022-08-17] MEDS ORDERED: SODIUM CHLORIDE 0.9% INJ 10 ML VIAL ONE ×2 (11:46→23:36)
[2022-08-17] MEDS ORDERED: LIDOCAINE 2%/EPINEPHRINE 1:200,000 20 ML SDV ONE (11:46)
[2022-08-17] MEDS ORDERED: fentaNYL 2MCG/ML ROPIVACAINE 1.25MG/ML 100 ML BAG EPI ONE (11:46)
[2022-08-17] MEDS ORDERED: NALOXONE HCL 1 MG in SODIUM CHLORIDE 0.9% 1000ML 1,000 ML IV PRN (12:02)
[2022-08-17] MEDS ORDERED: NALBUPHINE HCL INJ 10 MG/ML AMP IV PRN (12:02)
[2022-08-17] MEDS ORDERED: ePHEDrine sulfate 50 MG/ML AMP IV PRN (12:02)
[2022-08-17] MEDS ORDERED: ONDANSETRON INJ 2 MG/ML 2 ML VIAL IV PRN (12:02)
[2022-08-17] MEDS ORDERED: NALOXONE HCL 0.4 MG/1 ML VIAL/CARP IV PRN (12:02)
[2022-08-17] MEDS ORDERED: diphenhydrAMINE 50 MG/ML VIAL IV PRN (12:02)
--- NOTE | 2022-08-17 12:05 | Anesthesiology Consultation ---
Date of Service August 17, 2022 Assessment & Plan Chart Review Chart Review: Patient NOT seen in Pre Admission Testing and Acceptable Risk for Labor Epidural Consults Requested none ASA ASA2 Proposed Anesthesia Anesthesia Type: Labor Epidural and CSE Risk / Benefits Reviewed With: PT / POA / Parent / Guardian, Accepts Plan and Informed Consent Obtained History Height/Weight Height: 5 ft 5 in Weight: 116.84 kg Allergies Allergy/AdvReac Type Severity Reaction Status Date / Time No Known Allergies Allergy Unknown Unverified 05/10/09 10:45 Medications Home Medications Medication Instructions Recorded Confirmed Last Taken cetirizine 10 mg capsule (Zyrtec) 10 mg PO DAILY PRN allergies 08/15/22 08/15/22 08/15/22 0600 levothyroxine 100 mcg PO DAILY 08/15/22 08/15/22 08/15/22 0600 omeprazole magnesium 20 mg 20 mg PO DAILY 08/15/22 08/15/22 08/15/22 tablet,delayed release (Prilosec 0600 OTC) vit 10-iron fum-folic 1 tab PO DAILY 08/15/22 08/16/22 08/15/22 0600 Active Medications Generic Name Dose Route Start Last Admin Trade Name Freq PRN Reason Stop Dose Admin Acetaminophen 1,000 mg 08/16/22 08:38 08/16/22 14:39 Acetaminophen 500 Mg Tab PO 09/15/22 08:37 1,000 mg Q6H PRN Administration pain Butorphanol Tartrate 1 mg 08/17/22 10:22 08/17/22 10:28 Butorphanol Tartrate 1 Mg/Ml Vial IV 09/16/22 10:21 1 mg Q3HWA PRN Administration Pain Lactated Ringer's 1,000 mls @ 75 mls/hr 08/15/22 18:45 08/17/22 11:59 Lr IV 08/17/22 18:44 75 mls/hr .[id number] PRN Administration L&D Protocol Protocol Magnesium Sulfate 40 gm in 1,000 mls @ 50 mls/hr 08/15/22 19:00 08/17/22 07:09 Magnesium Sulfate / Wtr IV 09/14/22 18:59 50 mls/hr .Q20H BENJIE Infusion Oxytocin 30 units in 500 mls @ 14 mls/hr 08/17/22 04:10 08/17/22 11:00 Pitocin IV 08/19/22 04:09 0.84 units/hr .Q24H PRN 14 mls/hr Labor Induction/Augmentation Titration Protocol 0.84 UNITS/HR Levothyroxine Sodium 100 mcg 08/16/22 06:30 08/17/22 06:15 Levothyroxine Sodium 100 Mcg Tablet PO 09/15/22 06:29 100 mcg DAILYBB BENJIE Administration Misoprostol 25 mcg 08/16/22 10:00 08/17/22 05:17 Misoprostol 25 Mcg Tab SL 09/15/22 09:59 Not Given Q4H BENJIE NPO Date Last Intake of Fluids: 08/17/22 Time Last Intake of Fluids: 11:00 Date Last Intake of Solids: 08/16/22 Time Last Intake of Solids: 19:00 Past Medical History Medical History ADHD (attention deficit hyperactivity disorder) Allergic rhinitis Antepartum anemia GERD (gastroesophageal reflux disease) Gestational hypertension Hypothyroid Obesity Psoriasis Exercise / Class Metabolic Activity II 4-5 Yardwork/Stairs/Walk up hill Past Family History no chest pain or sob, no cough or fever Past Surgical History Surgical History H/O foot surgery History of tonsillectomy and adenoidectomy [place] teeth removed Past Anesthesia History No Hx of Anesthesia Complications and No Family Hx of Anesthesia Complications History of PONV No Hx of PONV and No Hx of Motion Sickness Social History Smoking Status: Former smoker Hx Alcohol Use: No Hx Substance Use: No Review of Systems no chest pain or sob Physical Exam Vital Signs Last Vital Signs Temp 36.8 C 08/17/22 11:59 Pulse 72 08/17/22 12:01 Resp 18 08/17/22 11:59 BP 140/84 08/17/22 11:47 Pulse Ox 95 08/17/22 12:01 O2 Del Method 08/16/22 19:00 Constitutional + obese ENMT Mouth: no TMJ abnormality Thyromental Distance: > or= 3.5 Finger Breadths Mallampati Class: II Neck normal visual inspection Respiratory normal respiratory effort Auscultation: lungs clear to auscultation bilaterally Cardiovascular Rate/Rhythm: regular rate and regular rhythm Musculoskeletal Spine: normal cervical ROM Neurologic moves all extremities Psychiatric Orientation: alert and oriented x 3 Testing Laboratory Results 08/17/22 06:04 08/17/22 06:04 Urine Color Yellow 08/15/22 18:05 Urine Appearance Clear (Clear) 08/15/22 18:05 Urine pH 5.5 (4.5-7.5) 08/15/22 18:05 Ur Specific [place] 1.011 (1.000-1.030) 08/15/22 18:05 Urine Protein Negative (Negative) 08/15/22 18:05 Urine Glucose (UA) Negative (Negative) 08/15/22 18:05 Urine Ketones Negative (Negative) 08/15/22 18:05 Urine Nitrite Negative (Negative) 08/15/22 18:05 Ur Leukocyte Esterase Negative (Negative) 08/15/22 18:05 Blood Type O Positive 08/15/22 19:03 Antibody Screen NEGATIVE 08/15/22 19:03
--- NOTE | 2022-08-17 15:34 | Obstetrical Progress Note ---
Date of Service August 17, 2022 Assessment & Plan Admission and Anticipated Discharge Date Admission Date: August 15, 2022 Subjective Late entry from 1440 She is reevaluated. Received epidural and comfortable now. Vital signs stable afebrile No signs or symptoms of magnesium toxicity Andujar bulb came out and her cervix was checked by her nurse to be 5 cm dilated. heart rate category 1, [place] with contractions every 2 to 3 minutes, Vaginal exam, cervix is 5 cm dilated, 50% effaced, head is high but with a bulging bag, AROM is done with the contraction when the head is lower and engaged, abundant amount of clear fluid was obtained, Continue to monitor closely and with Pitocin augmentation, All questions were answered. Vital Signs Temp Pulse Resp BP Pulse Ox 08/17/22 14:00 18 08/17/22 13:19 16 08/17/22 11:59 36.8 C 18 08/17/22 11:00 16 08/17/22 10:00 18 08/17/22 09:00 18 08/17/22 08:00 18 08/17/22 07:05 36.9 C 18 08/17/22 07:05 18 08/17/22 06:04 18 08/17/22 05:00 18 08/17/22 04:00 18 08/17/22 15:31 74 94 08/17/22 15:26 73 95 08/17/22 15:27 74 135/79 08/17/22 15:21 74 96 08/17/22 15:16 83 98 08/17/22 15:11 83 96 08/17/22 15:12 75 133/76 08/17/22 15:06 78 98 08/17/22 14:40 36.8 C 08/17/22 15:01 74 96 08/17/22 14:58 71 130/67 08/17/22 14:56 80 98 08/17/22 14:51 75 97 08/17/22 14:46 73 98 08/17/22 14:42 75 132/90 08/17/22 14:41 79 97 08/17/22 14:36 70 94 08/17/22 14:31 79 96 08/17/22 14:28 62 152/83 H 08/17/22 14:26 66 94 08/17/22 14:21 63 94 08/17/22 14:16 67 93 08/17/22 14:12 71 136/86 08/17/22 14:11 70 92 08/17/22 14:06 73 97 08/17/22 14:01 70 92 08/17/22 13:56 70 91 08/17/22 13:57 68 128/81 08/17/22 13:51 73 93 08/17/22 13:46 68 91 08/17/22 13:43 63 126/80 08/17/22 13:41 67 92 08/17/22 13:36 66 91 08/17/22 13:31 65 94 08/17/22 13:26 71 92 08/17/22 13:27 69 124/77 08/17/22 13:21 64 91 08/17/22 13:20 71 89 L 08/17/22 13:16 72 91 08/17/22 13:12 64 117/75 08/17/22 13:11 67 92 08/17/22 12:20 18 08/17/22 12:20 18 08/17/22 12:22 18 08/17/22 12:22 18 08/17/22 13:06 69 92 08/17/22 13:01 67 92 08/17/22 12:56 63 92 08/17/22 12:57 76 116/69 08/17/22 12:51 69 89 L 08/17/22 12:46 69 95 08/17/22 12:41 71 111/69 94 08/17/22 12:39 71 109/67 08/17/22 12:36 81 95 08/17/22 12:35 70 119/62 08/17/22 12:33 78 115/58 L 08/17/22 12:31 88 94 08/17/22 12:30 72 18 115/62 08/17/22 12:26 74 18 95 08/17/22 12:27 75 126/73 08/17/22 12:25 77 123/72 08/17/22 12:23 67 118/71 08/17/22 12:21 95 08/17/22 12:21 65 08/17/22 12:21 68 129/75 08/17/22 12:19 81 126/74 08/17/22 12:16 69 96 08/17/22 12:17 66 130/82 08/17/22 12:15 65 134/72 08/17/22 12:11 71 94 08/17/22 12:06 73 96 08/17/22 12:01 72 95 08/17/22 11:56 69 96 08/17/22 11:51 69 96 08/17/22 11:46 71 91 08/17/22 11:47 72 140/84 08/17/22 11:41 68 95 08/17/22 11:36 72 93 08/17/22 11:31 72 93 08/17/22 11:30 67 89 L 08/17/22 11:26 64 91 08/17/22 11:25 69 89 L 08/17/22 11:21 71 93 08/17/22 11:18 66 137/83 89 L 08/17/22 11:16 70 89 L 08/17/22 11:13 67 89 L 08/17/22 11:11 66 89 L 08/17/22 11:07 66 89 L 08/17/22 11:06 63 90 08/17/22 11:01 66 91 08/17/22 10:52 66 89 L 08/17/22 10:51 68 88 L 08/17/22 10:47 68 88 L 08/17/22 10:48 65 136/84 08/17/22 10:46 66 88 L 08/17/22 10:42 67 89 L 08/17/22 10:41 67 89 L 08/17/22 10:36 63 90 08/17/22 10:37 64 89 L 08/17/22 10:31 59 L 93 08/17/22 10:30 67 89 L 08/17/22 10:26 65 97 08/17/22 10:21 67 96 08/17/22 10:18 67 154/89 H 08/17/22 10:16 73 95 08/17/22 10:11 68 96 08/17/22 10:06 70 96 08/17/22 10:01 69 92 08/17/22 09:56 68 95 08/17/22 09:51 68 96 08/17/22 09:48 71 144/86 H 08/17/22 09:46 68 95 08/17/22 09:41 74 95 08/17/22 09:36 67 96 08/17/22 09:31 71 96 08/17/22 09:26 73 96 08/17/22 09:21 72 96 08/17/22 09:16 71 96 08/17/22 09:11 72 94 08/17/22 09:06 76 95 08/17/22 09:01 79 93 08/17/22 08:56 72 94 08/17/22 08:51 75 92 08/17/22 08:48 72 135/80 08/17/22 08:46 69 92 08/17/22 08:41 69 92 08/17/22 08:36 68 94 08/17/22 08:31 72 92 08/17/22 08:26 84 95 08/17/22 08:21 77 93 08/17/22 08:16 75 95 08/17/22 08:17 71 130/81 08/17/22 08:11 83 96 08/17/22 08:06 88 95 08/17/22 07:32 18 08/17/22 07:32 36.9 C 18 08/17/22 07:53 84 94 08/17/22 07:48 85 94 08/17/22 07:43 89 96 08/17/22 07:38 81 97 08/17/22 07:28 79 95 08/17/22 07:23 78 95 08/17/22 07:18 73 95 08/17/22 07:19 73 136/81 08/17/22 07:13 81 95 08/17/22 07:08 73 95 08/17/22 07:00 18 08/17/22 07:00 18 08/17/22 07:03 97 08/17/22 07:03 86 08/17/22 07:03 79 168/91 H 08/17/22 07:02 83 166/88 H 08/17/22 06:58 67 91 08/17/22 06:53 68 92 08/17/22 06:48 74 165/89 H 95 08/17/22 06:46 71 87 L 08/17/22 06:43 72 93 08/17/22 06:38 70 96 08/17/22 06:33 71 94 08/17/22 06:28 76 95 08/17/22 06:23 66 97 08/17/22 06:18 72 96 08/17/22 06:16 71 147/84 H 08/17/22 06:13 80 96 08/17/22 06:12 77 162/77 H 08/17/22 06:08 78 96 08/17/22 06:03 96 08/17/22 06:03 80 01 06:03 78 130/65 08/17/22 05:58 94 08/17/22 05:58 78 08/17/22 05:58 76 155/89 H 08/17/22 05:53 81 95 08/17/22 05:52 76 179/88 H 08/17/22 05:48 78 94 08/17/22 05:30 18 08/17/22 05:30 18 08/17/22 05:47 75 150/84 H 08/17/22 05:43 81 162/85 H 95 08/17/22 05:38 74 93 08/17/22 05:37 70 134/78 08/17/22 05:33 94 08/17/22 05:33 76 08/17/22 05:33 73 139/75 08/17/22 05:28 94 08/17/22 05:28 75 05 05:28 72 135/79 05 05:23 80 93 08/17/22 05:22 73 135/79 08/17/22 05:18 78 93 08/17/22 05:17 74 139/78 08/17/22 05:13 83 94 08/17/22 05:08 75 95 08/17/22 05:07 75 143/79 H 08/17/22 05:03 74 95 08/17/22 04:58 75 96 08/17/22 04:53 79 95 05 04:48 82 92 05 04:45 85 166/80 H 08/17/22 04:43 80 92 05 04:38 81 95 05 04:37 82 169/79 H 08/17/22 04:33 78 93 05 04:28 82 92 05 04:23 79 91 08/17/22 04:18 81 92 05 04:13 84 93 08/17/22 04:08 87 91 08/17/22 04:00 36.8 C 08/17/22 04:06 80 139/70 08/17/22 04:03 86 92 08/17/22 03:58 84 92 08/17/22 03:56 85 92 08/17/22 03:53 90 95 08/17/22 03:51 81 92 08/17/22 03:48 83 92 08/17/22 03:45 79 92 08/17/22 03:43 81 92 08/17/22 03:40 83 92 08/17/22 03:38 83 94 08/17/22 03:36 86 139/68 08/17/22 03:34 87 92 Lab Results 08/15/22 08/15/22 08/15/22 Range/Units 18:05 18:05 18:05 WBC (4.8-10.8) K/ul RBC (3.93-5.22) M/uL Hgb (12.0-16.0) g/dl Hct (34.1-44.9) % MCV (80.0-100.0) fL MCH (25.0-34.0) pg MCHC (32.0-36.0) g/dL RDW Std Deviation (36.4-46.3) fL RDW Coeff of [place] (11.5-14.5) % Plt Count (130-400) K/uL MPV (9.4-12.3) fL Sodium (136-145) mmol/L Potassium (3.5-5.1) mmol/L Chloride (98-107) mmol/L Carbon Dioxide (21-32) mmol/L Anion Gap (3-11) BUN (6-23) mg/dl Creatinine (0.6-1.2) mg/dl Est Cr Clr Drug Dosing ml/min Est GFR ( Amer) ml/min Est GFR (Non-Af Amer) ml/min BUN/Creatinine Ratio (10-20) Glucose (70-99(Fasting)) mg/dl Uric Acid (2.6-7.2) mg/dl Calcium (8.5-10.1) mg/dl Magnesium (1.7-2.4) mg/dl Total Bilirubin (0.2-1.0) mg/dl Direct Bilirubin (0-0.2) mg/dl AST (13-39) U/L ALT (7-52) U/L Alkaline Phosphatase (34-104) U/L Lactate Dehydrogenase (86-244) U/L Total Protein (6.0-8.3) gm/dl Albumin (3.4-5.0) gm/dl Globulin (2.5-4.0) gm/dl Albumin/Globulin Ratio (0.9-2) Urine Color Yellow Urine Appearance Clear (Clear) Urine pH 5.5 (4.5-7.5) Ur Specific [place] 1.011 (1.000-1.030) Urine Protein Negative (Negative) Urine Glucose (UA) Negative (Negative) Urine Ketones Negative (Negative) Urine Blood Negative (Negative) Urine Nitrite Negative (Negative) Urine Bilirubin Negative (Negative) Urine Urobilinogen Negative (Negative) Ur Leukocyte Esterase Negative (Negative) Ur Random Creatinine 41.6 mg/dl U Random Total Protein 17.2 H (0-11.9) mg/dl Protein/Creatinin Ratio 0.4 H (0-0.2) SARS-CoV-2, RNA, NAAT NEGATIVE (NEGATIVE) Blood Type Antibody Screen 08/15/22 08/15/22 08/15/22 Range/Units 19:03 19:03 19:03 WBC 10.36 (4.8-10.8) K/ul RBC 4.11 (3.93-5.22) M/uL Hgb 10.5 L (12.0-16.0) g/dl Hct 32.2 L (34.1-44.9) % MCV 78.3 L (80.0-100.0) fL MCH 25.5 (25.0-34.0) pg MCHC 32.6 (32.0-36.0) g/dL RDW Std Deviation 41.0 (36.4-46.3) fL RDW Coeff of [place] 14.6 H (11.5-14.5) % Plt Count 255 (130-400) K/uL MPV 10.5 (9.4-12.3) fL Sodium 136 (136-145) mmol/L Potassium 3.7 (3.5-5.1) mmol/L Chloride 106 (98-107) mmol/L Carbon Dioxide 21 (21-32) mmol/L Anion Gap 9 (3-11) BUN 10 (6-23) mg/dl Creatinine 0.47 L (0.6-1.2) mg/dl Est Cr Clr Drug Dosing 221.6 ml/min Est GFR ( Amer) > 150.0 ml/min Est GFR (Non-Af Amer) 131.6 ml/min BUN/Creatinine Ratio 21.3 H (10-20) Glucose 106 H (70-99(Fasting)) mg/dl Uric Acid 4.9 (2.6-7.2) mg/dl Calcium 9.0 (8.5-10.1) mg/dl Magnesium (1.7-2.4) mg/dl Total Bilirubin 0.4 (0.2-1.0) mg/dl Direct Bilirubin 0.1 (0-0.2) mg/dl AST 12 L (13-39) U/L ALT 8 (7-52) U/L Alkaline Phosphatase 213 H (34-104) U/L Lactate Dehydrogenase (86-244) U/L Total Protein 6.0 (6.0-8.3) gm/dl Albumin 3.1 L (3.4-5.0) gm/dl Globulin 2.9 (2.5-4.0) gm/dl Albumin/Globulin Ratio 1.1 (0.9-2) Urine Color Urine Appearance (Clear) Urine pH (4.5-7.5) Ur Specific [place] (1.000-1.030) Urine Protein (Negative) Urine Glucose (UA) (Negative) Urine Ketones (Negative) Urine Blood (Negative) Urine Nitrite (Negative) Urine Bilirubin (Negative) Urine Urobilinogen (Negative) Ur Leukocyte Esterase (Negative) Ur Random Creatinine mg/dl U Random Total Protein (0-11.9) mg/dl Protein/Creatinin Ratio (0-0.2) SARS-CoV-2, RNA, NAAT (NEGATIVE) Blood Type O Positive Antibody Screen NEGATIVE 08/15/22 08/16/22 08/16/22 Range/Units 19:03 08:22 08:22 WBC 9.42 (4.8-10.8) K/ul RBC 4.12 (3.93-5.22) M/uL Hgb 10.7 L (12.0-16.0) g/dl Hct 32.1 L (34.1-44.9) % MCV 77.9 L (80.0-100.0) fL MCH 26.0 (25.0-34.0) pg MCHC 33.3 (32.0-36.0) g/dL RDW Std Deviation 41.4 (36.4-46.3) fL RDW Coeff of [place] 14.7 H (11.5-14.5) % Plt Count 255 (130-400) K/uL MPV 10.4 (9.4-12.3) fL Sodium 135 L (136-145) mmol/L Potassium 3.6 (3.5-5.1) mmol/L Chloride 105 (98-107) mmol/L Carbon Dioxide 21 (21-32) mmol/L Anion Gap 9 (3-11) BUN 6 (6-23) mg/dl Creatinine 0.45 L (0.6-1.2) mg/dl Est Cr Clr Drug Dosing 231.4 ml/min Est GFR ( Amer) > 150.0 ml/min Est GFR (Non-Af Amer) 133.5 ml/min BUN/Creatinine Ratio 13.3 (10-20) Glucose 104 H (70-99(Fasting)) mg/dl Uric Acid (2.6-7.2) mg/dl Calcium 7.6 L (8.5-10.1) mg/dl Magnesium (1.7-2.4) mg/dl Total Bilirubin 0.5 (0.2-1.0) mg/dl Direct Bilirubin (0-0.2) mg/dl AST 11 L (13-39) U/L ALT 9 (7-52) U/L Alkaline Phosphatase 209 H (34-104) U/L Lactate Dehydrogenase 148 (86-244) U/L Total Protein 6.1 (6.0-8.3) gm/dl Albumin 3.2 L (3.4-5.0) gm/dl Globulin 2.9 (2.5-4.0) gm/dl Albumin/Globulin Ratio 1.1 (0.9-2) Urine Color Urine Appearance (Clear) Urine pH (4.5-7.5) Ur Specific [place] (1.000-1.030) Urine Protein (Negative) Urine Glucose (UA) (Negative) Urine Ketones (Negative) Urine Blood (Negative) Urine Nitrite (Negative) Urine Bilirubin (Negative) Urine Urobilinogen (Negative) Ur Leukocyte Esterase (Negative) Ur Random Creatinine mg/dl U Random Total Protein (0-11.9) mg/dl Protein/Creatinin Ratio (0-0.2) SARS-CoV-2, RNA, NAAT (NEGATIVE) Blood Type Antibody Screen 08/17/22 08/17/22 08/17/22 Range/Units 06:04 06:04 06:04 WBC 11.20 H (4.8-10.8) K/ul RBC 4.13 (3.93-5.22) M/uL Hgb 10.6 L (12.0-16.0) g/dl Hct 32.2 L (34.1-44.9) % MCV 78.0 L (80.0-100.0) fL MCH 25.7 (25.0-34.0) pg MCHC 32.9 (32.0-36.0) g/dL RDW Std Deviation 42.2 (36.4-46.3) fL RDW Coeff of [place] 15.0 H (11.5-14.5) % Plt Count 250 (130-400) K/uL MPV 10.3 (9.4-12.3) fL Sodium 134 L (136-145) mmol/L Potassium 3.7 (3.5-5.1) mmol/L Chloride 104 (98-107) mmol/L Carbon Dioxide 21 (21-32) mmol/L Anion Gap 9 (3-11) BUN 5 L (6-23) mg/dl Creatinine 0.44 L (0.6-1.2) mg/dl Est Cr Clr Drug Dosing 236.7 ml/min Est GFR ( Amer) > 150.0 ml/min Est GFR (Non-Af Amer) 134.5 ml/min BUN/Creatinine Ratio 11.4 (10-20) Glucose 100 H (70-99(Fasting)) mg/dl Uric Acid (2.6-7.2) mg/dl Calcium 7.4 L (8.5-10.1) mg/dl Magnesium 4.6 H (1.7-2.4) mg/dl Total Bilirubin 0.6 (0.2-1.0) mg/dl Direct Bilirubin (0-0.2) mg/dl AST 11 L (13-39) U/L ALT 8 (7-52) U/L Alkaline Phosphatase 205 H (34-104) U/L Lactate Dehydrogenase (86-244) U/L Total Protein 5.9 L (6.0-8.3) gm/dl Albumin 3.0 L (3.4-5.0) gm/dl Globulin 2.9 (2.5-4.0) gm/dl Albumin/Globulin Ratio 1.0 (0.9-2) Urine Color Urine Appearance (Clear) Urine pH (4.5-7.5) Ur Specific [place] (1.000-1.030) Urine Protein (Negative) Urine Glucose (UA) (Negative) Urine Ketones (Negative) Urine Blood (Negative) Urine Nitrite (Negative) Urine Bilirubin (Negative) Urine Urobilinogen (Negative) Ur Leukocyte Esterase (Negative) Ur Random Creatinine mg/dl U Random Total Protein (0-11.9) mg/dl Protein/Creatinin Ratio (0-0.2) SARS-CoV-2, RNA, NAAT (NEGATIVE) Blood Type Antibody Screen Results & Data ([facility]) Vital Signs (Past 12 Hours) Vital Signs Temp Pulse Resp BP Pulse Ox 08/17/22 14:00 18 08/17/22 13:19 16 08/17/22 11:59 36.8 C 18 08/17/22 11:00 16 08/17/22 10:00 18 08/17/22 09:00 18 08/17/22 08:00 18 08/17/22 07:05 36.9 C 18 08/17/22 07:05 18 08/17/22 06:04 18 08/17/22 05:00 18 08/17/22 04:00 18 08/17/22 15:26 73 95 08/17/22 15:27 74 135/79 08/17/22 15:21 74 96 08/17/22 15:16 83 98 08/17/22 15:11 83 96 08/17/22 15:12 75 133/76 08/17/22 15:06 78 98 08/17/22 14:40 36.8 C 08/17/22 15:01 74 96 08/17/22 14:58 71 130/67 08/17/22 14:56 80 98 08/17/22 14:51 75 97 08/17/22 14:46 73 98 08/17/22 14:42 75 132/90 08/17/22 14:41 79 97 08/17/22 14:36 70 94 08/17/22 14:31 79 96 08/17/22 14:28 62 152/83 H 08/17/22 14:26 66 94 08/17/22 14:21 63 94 08/17/22 14:16 67 93 08/17/22 14:12 71 136/86 08/17/22 14:11 70 92 08/17/22 14:06 73 97 08/17/22 14:01 70 92 08/17/22 13:56 70 91 08/17/22 13:57 68 128/81 08/17/22 13:51 73 93 08/17/22 13:46 68 91 08/17/22 13:43 63 126/80 08/17/22 13:41 67 92 08/17/22 13:36 66 91 08/17/22 13:31 65 94 08/17/22 13:26 71 92 08/17/22 13:27 69 124/77 08/17/22 13:21 64 91 08/17/22 13:20 71 89 L 08/17/22 13:16 72 91 08/17/22 13:12 64 117/75 08/17/22 13:11 67 92 08/17/22 12:20 18 08/17/22 12:20 18 08/17/22 12:22 18 08/17/22 12:22 18 08/17/22 13:06 69 92 08/17/22 13:01 67 92 08/17/22 12:56 63 92 08/17/22 12:57 76 116/69 08/17/22 12:51 69 89 L 08/17/22 12:46 69 95 08/17/22 12:41 71 111/69 94 08/17/22 12:39 71 109/67 08/17/22 12:36 81 95 08/17/22 12:35 70 119/62 08/17/22 12:33 78 115/58 L 08/17/22 12:31 88 94 08/17/22 12:30 72 18 115/62 08/17/22 12:26 74 18 95 08/17/22 12:27 75 126/73 08/17/22 12:25 77 123/72 08/17/22 12:23 67 118/71 08/17/22 12:21 95 08/17/22 12:21 65 08/17/22 12:21 68 129/75 08/17/22 12:19 81 126/74 08/17/22 12:16 69 96 08/17/22 12:17 66 130/82 08/17/22 12:15 65 134/72 08/17/22 12:11 71 94 08/17/22 12:06 73 96 08/17/22 12:01 72 95 08/17/22 11:56 69 96 08/17/22 11:51 69 96 08/17/22 11:46 71 91 08/17/22 11:47 72 140/84 08/17/22 11:41 68 95 08/17/22 11:36 72 93 08/17/22 11:31 72 93 08/17/22 11:30 67 89 L 08/17/22 11:26 64 91 08/17/22 11:25 69 89 L 08/17/22 11:21 71 93 08/17/22 11:18 66 137/83 89 L 08/17/22 11:16 70 89 L 08/17/22 11:13 67 89 L 08/17/22 11:11 66 89 L 08/17/22 11:07 66 89 L 08/17/22 11:06 63 90 08/17/22 11:01 66 91 08/17/22 10:52 66 89 L 08/17/22 10:51 68 88 L 08/17/22 10:47 68 88 L 08/17/22 10:48 65 136/84 08/17/22 10:46 66 88 L 08/17/22 10:42 67 89 L 08/17/22 10:41 67 89 L 08/17/22 10:36 63 90 08/17/22 10:37 64 89 L 08/17/22 10:31 59 L 93 08/17/22 10:30 67 89 L 08/17/22 10:26 65 97 08/17/22 10:21 67 96 08/17/22 10:18 67 154/89 H 08/17/22 10:16 73 95 08/17/22 10:11 68 96 08/17/22 10:06 70 96 08/17/22 10:01 69 92 01/05/23 09:56 68 95 08/17/22 09:51 68 96 08/17/22 09:48 71 144/86 H 08/17/22 09:46 68 95 08/17/22 09:41 74 95 08/17/22 09:36 67 96 08/17/22 09:31 71 96 08/17/22 09:26 73 96 08/17/22 09:21 72 96 08/17/22 09:16 71 96 08/17/22 09:11 72 94 08/17/22 09:06 76 95 08/17/22 09:01 79 93 08/17/22 08:56 72 94 08/17/22 08:51 75 92 08/17/22 08:48 72 135/80 08/17/22 08:46 69 92 08/17/22 08:41 69 92 08/17/22 08:36 68 94 08/17/22 08:31 72 92 08/17/22 08:26 84 95 08/17/22 08:21 77 93 08/17/22 08:16 75 95 08/17/22 08:17 71 130/81 08/17/22 08:11 83 96 08/17/22 08:06 88 95 08/17/22 07:32 18 08/17/22 07:32 36.9 C 18 08/17/22 07:53 84 94 08/17/22 07:48 85 94 08/17/22 07:43 89 96 08/17/22 07:38 81 97 08/17/22 07:28 79 95 08/17/22 07:23 78 95 08/17/22 07:18 73 95 08/17/22 07:19 73 136/81 08/17/22 07:13 81 95 08/17/22 07:08 73 95 08/17/22 07:00 18 08/17/22 07:00 18 08/17/22 07:03 97 08/17/22 07:03 86 08/17/22 07:03 79 168/91 H 08/17/22 07:02 83 166/88 H 08/17/22 06:58 67 91 08/17/22 06:53 68 92 08/17/22 06:48 74 165/89 H 95 08/17/22 06:46 71 87 L 08/17/22 06:43 72 93 08/17/22 06:38 70 96 08/17/22 06:33 71 94 08/17/22 06:28 76 95 08/17/22 06:23 66 97 08/17/22 06:18 72 96 08/17/22 06:16 71 147/84 H 08/17/22 06:13 80 96 08/17/22 06:12 77 162/77 H 08/17/22 06:08 78 96 08/17/22 06:03 96 08/17/22 06:03 80 08/17/22 06:03 78 130/65 08/17/22 05:58 94 08/17/22 05:58 78 08/17/22 05:58 76 155/89 H 08/17/22 05:53 81 95 08/17/22 05:52 76 179/88 H 08/17/22 05:48 78 94 08/17/22 05:30 18 08/17/22 05:30 18 08/17/22 05:47 75 150/84 H 08/17/22 05:43 81 162/85 H 95 08/17/22 05:38 74 93 05 05:37 70 134/78 05 05:33 94 05 05:33 76 05 05:33 73 139/75 05 05:28 94 05 05:28 75 08/17/22 05:28 72 135/79 05 05:23 80 93 05 05:22 73 135/79 05 05:18 78 93 05 05:17 74 139/78 05 05:13 83 94 05 05:08 75 95 05 05:07 75 143/79 H 05 05:03 74 95 05 04:58 75 96 05 04:53 79 95 05 04:48 82 92 05 04:45 85 166/80 H 08/17/22 04:43 80 92 05 04:38 81 95 05 04:37 82 169/79 H 05 04:33 78 93 05 04:28 82 92 08/17/22 04:23 79 91 08/17/22 04:18 81 92 08/17/22 04:13 84 93 08/17/22 04:08 87 91 08/17/22 04:00 36.8 C 08/17/22 04:06 80 139/70 08/17/22 04:03 86 92 08/17/22 03:58 84 92 08/17/22 03:56 85 92 08/17/22 03:53 90 95 08/17/22 03:51 81 92 08/17/22 03:48 83 92 08/17/22 03:45 79 92 08/17/22 03:43 81 92 08/17/22 03:40 83 92 08/17/22 03:38 83 94 08/17/22 03:36 86 139/68 08/17/22 03:34 87 92 08/17/22 03:33 84 93
[2022-08-17] MEDS ORDERED: LABETALOL HCL 100 MG TAB PO ONE (17:30)
--- NOTE | 2022-08-17 17:44 | Obstetrical Progress Note ---
Date of Service August 17, 2022 Assessment & Plan Admission and Anticipated Discharge Date Admission Date: August 15, 2022 Subjective Patient is comfortable. Per her nurse, Dayana, her cervix has not changed and still thick and desire for order to increase Oxytocin over 20 miu/min VE; unchanged 5/ 50%/ -3, still thick and high, IUPC is placed after verbal consent was obtained. BP's started to increase. Plan to start Labetalol PO and increase Oxytocin per IUPC readings. Continue to monitor closely Results & Data ([facility]) Vital Signs (Past 12 Hours) Vital Signs Temp Pulse Resp BP Pulse Ox 08/17/22 16:00 36.8 C 18 08/17/22 16:00 18 08/17/22 14:00 18 08/17/22 13:19 16 08/17/22 11:59 36.8 C 18 08/17/22 11:00 16 08/17/22 10:00 18 08/17/22 09:00 18 08/17/22 08:00 18 08/17/22 07:05 36.9 C 18 08/17/22 07:05 18 08/17/22 06:04 18 08/17/22 17:36 76 95 08/17/22 17:31 77 95 08/17/22 17:27 69 154/90 H 08/17/22 17:26 73 92 08/17/22 17:21 69 93 08/17/22 17:16 73 92 08/17/22 17:13 72 148/92 H 08/17/22 17:11 70 97 08/17/22 17:06 79 95 08/17/22 17:05 85 89 L 08/17/22 17:01 76 95 08/17/22 16:59 72 163/97 H 08/17/22 16:56 81 95 08/17/22 16:51 68 94 08/17/22 16:46 70 91 08/17/22 16:41 68 94 08/17/22 16:42 70 147/88 H 08/17/22 16:36 76 94 08/17/22 16:31 72 93 08/17/22 16:28 74 154/95 H 08/17/22 16:26 75 94 08/17/22 16:21 75 93 08/17/22 16:16 72 95 08/17/22 16:13 72 164/95 H 08/17/22 16:11 75 94 08/17/22 16:06 82 96 08/17/22 16:01 76 96 08/17/22 15:58 78 138/74 08/17/22 15:56 70 94 08/17/22 15:51 78 96 08/17/22 15:46 78 95 08/17/22 15:41 78 95 08/17/22 15:42 78 135/82 08/17/22 15:36 74 94 08/17/22 15:31 74 94 08/17/22 15:26 73 95 08/17/22 15:27 74 135/79 08/17/22 15:21 74 96 08/17/22 15:16 83 98 08/17/22 15:11 83 96 08/17/22 15:12 75 133/76 08/17/22 15:06 78 98 08/17/22 14:40 36.8 C 08/17/22 15:01 74 96 08/17/22 14:58 71 130/67 08/17/22 14:56 80 98 08/17/22 14:51 75 97 08/17/22 14:46 73 98 08/17/22 14:42 75 132/90 08/17/22 14:41 79 97 08/17/22 14:36 70 94 08/17/22 14:31 79 96 08/17/22 14:28 62 152/83 H 08/17/22 14:26 66 94 08/17/22 14:21 63 94 08/17/22 14:16 67 93 08/17/22 14:12 71 136/86 08/17/22 14:11 70 92 08/17/22 14:06 73 97 08/17/22 14:01 70 92 08/17/22 13:56 70 91 08/17/22 13:57 68 128/81 08/17/22 13:51 73 93 08/17/22 13:46 68 91 08/17/22 13:43 63 126/80 08/17/22 13:41 67 92 08/17/22 13:36 66 91 08/17/22 13:31 65 94 08/17/22 13:26 71 92 08/17/22 13:27 69 124/77 08/17/22 13:21 64 91 08/17/22 13:20 71 89 L 08/17/22 13:16 72 91 08/17/22 13:12 64 117/75 08/17/22 13:11 67 92 08/17/22 12:20 18 08/17/22 12:20 18 08/17/22 12:22 18 08/17/22 12:22 18 08/17/22 13:06 69 92 08/17/22 13:01 67 92 08/17/22 12:56 63 92 08/17/22 12:57 76 116/69 08/17/22 12:51 69 89 L 08/17/22 12:46 69 95 08/17/22 12:41 71 111/69 94 08/17/22 12:39 71 109/67 08/17/22 12:36 81 95 08/17/22 12:35 70 119/62 08/17/22 12:33 78 115/58 L 08/17/22 12:31 88 94 08/17/22 12:30 72 18 115/62 08/17/22 12:26 74 18 95 08/17/22 12:27 75 126/73 08/17/22 12:25 77 123/72 08/17/22 12:23 67 118/71 08/17/22 12:21 95 08/17/22 12:21 65 08/17/22 12:21 68 129/75 08/17/22 12:19 81 126/74 08/17/22 12:16 69 96 08/17/22 12:17 66 130/82 08/17/22 12:15 65 134/72 08/17/22 12:11 71 94 08/17/22 12:06 73 96 08/17/22 12:01 72 95 08/17/22 11:56 69 96 08/17/22 11:51 69 96 08/17/22 11:46 71 91 08/17/22 11:47 72 140/84 08/17/22 11:41 68 95 08/17/22 11:36 72 93 08/17/22 11:31 72 93 08/17/22 11:30 67 89 L 08/17/22 11:26 64 91 08/17/22 11:25 69 89 L 08/17/22 11:21 71 93 08/17/22 11:18 66 137/83 89 L 08/17/22 11:16 70 89 L 08/17/22 11:13 67 89 L 08/17/22 11:11 66 89 L 08/17/22 11:07 66 89 L 08/17/22 11:06 63 90 08/17/22 11:01 66 91 08/17/22 10:52 66 89 L 08/17/22 10:51 68 88 L 08/17/22 10:47 68 88 L 08/17/22 10:48 65 136/84 08/17/22 10:46 66 88 L 08/17/22 10:42 67 89 L 08/17/22 10:41 67 89 L 08/17/22 10:36 63 90 08/17/22 10:37 64 89 L 08/17/22 10:31 59 L 93 08/17/22 10:30 67 89 L 08/17/22 10:26 65 97 08/17/22 10:21 67 96 08/17/22 10:18 67 154/89 H 08/17/22 10:16 73 95 08/17/22 10:11 68 96 08/17/22 10:06 70 96 08/17/22 10:01 69 92 08/17/22 09:56 68 95 08/17/22 09:51 68 96 08/17/22 09:48 71 144/86 H 08/17/22 09:46 68 95 08/17/22 09:41 74 95 08/17/22 09:36 67 96 08/17/22 09:31 71 96 08/17/22 09:26 73 96 08/17/22 09:21 72 96 08/17/22 09:16 71 96 08/17/22 09:11 72 94 08/17/22 09:06 76 95 08/17/22 09:01 79 93 08/17/22 08:56 72 94 08/17/22 08:51 75 92 08/17/22 08:48 72 135/80 08/17/22 08:46 69 92 08/17/22 08:41 69 92 08/17/22 08:36 68 94 08/17/22 08:31 72 92 08/17/22 08:26 84 95 08/17/22 08:21 77 93 08/17/22 08:16 75 95 08/17/22 08:17 71 130/81 08/17/22 08:11 83 96 08/17/22 08:06 88 95 08/17/22 07:32 18 08/17/22 07:32 36.9 C 18 08/17/22 07:53 84 94 08/17/22 07:48 85 94 08/17/22 07:43 89 96 08/17/22 07:38 81 97 08/17/22 07:28 79 95 08/17/22 07:23 78 95 08/17/22 07:18 73 95 08/17/22 07:19 73 136/81 08/17/22 07:13 81 95 08/17/22 07:08 73 95 08/17/22 07:00 18 08/17/22 07:00 18 08/17/22 07:03 97 08/17/22 07:03 86 08/17/22 07:03 79 168/91 H 08/17/22 07:02 83 166/88 H 08/17/22 06:58 67 91 08/17/22 06:53 68 92 08/17/22 06:48 74 165/89 H 95 08/17/22 06:46 71 87 L 08/17/22 06:43 72 93 08/17/22 06:38 70 96 08/17/22 06:33 71 94 08/17/22 06:28 76 95 08/17/22 06:23 66 97 08/17/22 06:18 72 96 08/17/22 06:16 71 147/84 H 08/17/22 06:13 80 96 08/17/22 06:12 77 162/77 H 08/17/22 06:08 78 96 08/17/22 06:03 96 08/17/22 06:03 80 08/17/22 06:03 78 130/65 08/17/22 05:58 94 08/17/22 05:58 78 08/17/22 05:58 76 155/89 H 08/17/22 05:53 81 95 08/17/22 05:52 76 179/88 H 08/17/22 05:48 78 94 08/17/22 05:47 75 150/84 H 08/17/22 05:43 81 162/85 H 95
[2022-08-17] MEDS: fentaNYL 2MCG/ML ROPIVACAINE 1.25MG/ML 100 ML BAG EPI PRN (20:42)
[2022-08-17] MEDS ORDERED: NURSING L&D Epidural Breakthrough Pain Update ONE (20:46)
--- NOTE | 2022-08-17 21:05 | Obstetrical Progress Note ---
Date of Service August 17, 2022 Assessment & Plan Admission and Anticipated Discharge Date Admission Date: August 15, 2022 Subjective Patient started to feel pain with contractions. Contraction pattern was elevated for the first 2 hours and now they are less than 200mvu/10 MIN Oxytocin was increased to 26MIU/MIN VE; 5/ 50%/ -3, slightly more thinned and head lower ( was -4, very high) FHR categ I Plan for epidural bolus and continue with Oxytocin per IU readings Results & Data ([facility]) Vital Signs (Past 12 Hours) Vital Signs Temp Pulse Resp BP Pulse Ox 08/17/22 20:00 18 08/17/22 19:00 18 08/17/22 18:00 16 08/17/22 16:00 36.8 C 18 08/17/22 16:00 18 08/17/22 14:00 18 08/17/22 13:19 16 08/17/22 11:59 36.8 C 18 08/17/22 11:00 16 08/17/22 10:00 18 08/17/22 21:01 81 98 08/17/22 20:56 80 96 08/17/22 20:57 83 133/72 08/17/22 20:51 82 97 08/17/22 20:46 77 94 08/17/22 20:43 81 138/92 08/17/22 20:41 72 95 08/17/22 20:36 80 96 08/17/22 20:30 18 08/17/22 20:30 18 08/17/22 20:31 86 91 08/17/22 20:26 80 151/85 H 94 08/17/22 20:21 81 93 08/17/22 20:16 74 93 08/17/22 20:11 76 147/85 H 96 08/17/22 20:06 77 95 08/17/22 20:01 74 91 08/17/22 19:56 85 145/80 H 92 08/17/22 19:51 75 92 08/17/22 19:46 72 93 08/17/22 19:41 82 147/83 H 92 08/17/22 19:30 18 08/17/22 19:30 18 08/17/22 19:36 75 93 08/17/22 19:31 72 93 08/17/22 19:00 18 08/17/22 19:00 36.8 C 18 08/17/22 19:27 76 142/87 H 08/17/22 19:26 75 94 08/17/22 19:21 72 95 08/17/22 19:16 90 96 08/17/22 19:12 77 155/86 H 08/17/22 19:11 83 97 08/17/22 19:06 80 98 08/17/22 19:01 66 97 08/17/22 18:58 74 140/87 08/17/22 18:56 73 96 08/17/22 18:51 76 97 08/17/22 18:46 82 96 08/17/22 18:41 76 96 08/17/22 18:42 75 136/74 08/17/22 18:36 80 96 08/17/22 18:31 77 97 08/17/22 18:27 77 144/73 H 08/17/22 18:26 75 97 08/17/22 18:21 77 98 08/17/22 18:16 76 95 08/17/22 18:11 74 94 08/17/22 18:12 73 129/74 08/17/22 18:06 71 93 08/17/22 18:01 71 96 08/17/22 17:57 80 145/76 H 08/17/22 17:56 74 95 08/17/22 17:51 78 97 08/17/22 17:46 81 97 08/17/22 17:43 81 143/70 H 08/17/22 17:41 91 H 94 08/17/22 17:36 76 95 08/17/22 17:31 77 95 08/17/22 17:27 69 154/90 H 08/17/22 17:26 73 92 08/17/22 17:21 69 93 08/17/22 17:16 73 92 08/17/22 17:13 72 148/92 H 08/17/22 17:11 70 97 08/17/22 17:06 79 95 08/17/22 17:05 85 89 L 08/17/22 17:01 76 95 08/17/22 16:59 72 163/97 H 08/17/22 16:56 81 95 08/17/22 16:51 68 94 08/17/22 16:46 70 91 08/17/22 16:41 68 94 08/17/22 16:42 70 147/88 H 08/17/22 16:36 76 94 08/17/22 16:31 72 93 08/17/22 16:28 74 154/95 H 08/17/22 16:26 75 94 08/17/22 16:21 75 93 08/17/22 16:16 72 95 08/17/22 16:13 72 164/95 H 08/17/22 16:11 75 94 08/17/22 16:06 82 96 08/17/22 16:01 76 96 08/17/22 15:58 78 138/74 08/17/22 15:56 70 94 08/17/22 15:51 78 96 08/17/22 15:46 78 95 08/17/22 15:41 78 95 08/17/22 15:42 78 135/82 08/17/22 15:36 74 94 08/17/22 15:31 74 94 08/17/22 15:26 73 95 08/17/22 15:27 74 135/79 08/17/22 15:21 74 96 08/17/22 15:16 83 98 08/17/22 15:11 83 96 08/17/22 15:12 75 133/76 08/17/22 15:06 78 98 08/17/22 14:40 36.8 C 08/17/22 15:01 74 96 08/17/22 14:58 71 130/67 08/17/22 14:56 80 98 08/17/22 14:51 75 97 08/17/22 14:46 73 98 08/17/22 14:42 75 132/90 08/17/22 14:41 79 97 08/17/22 14:36 70 94 08/17/22 14:31 79 96 08/17/22 14:28 62 152/83 H 08/17/22 14:26 66 94 08/17/22 14:21 63 94 08/17/22 14:16 67 93 08/17/22 14:12 71 136/86 08/17/22 14:11 70 92 08/17/22 14:06 73 97 08/17/22 14:01 70 92 08/17/22 13:56 70 91 08/17/22 13:57 68 128/81 08/17/22 13:51 73 93 08/17/22 13:46 68 91 08/17/22 13:43 63 126/80 08/17/22 13:41 67 92 08/17/22 13:36 66 91 08/17/22 13:31 65 94 08/17/22 13:26 71 92 08/17/22 13:27 69 124/77 08/17/22 13:21 64 91 08/17/22 13:20 71 89 L 08/17/22 13:16 72 91 08/17/22 13:12 64 117/75 08/17/22 13:11 67 92 08/17/22 12:20 18 08/17/22 12:20 18 08/17/22 12:22 18 08/17/22 12:22 18 08/17/22 13:06 69 92 08/17/22 13:01 67 92 08/17/22 12:56 63 92 08/17/22 12:57 76 116/69 08/17/22 12:51 69 89 L 08/17/22 12:46 69 95 08/17/22 12:41 71 111/69 94 08/17/22 12:39 71 109/67 08/17/22 12:36 81 95 08/17/22 12:35 70 119/62 08/17/22 12:33 78 115/58 L 08/17/22 12:31 88 94 08/17/22 12:30 72 18 115/62 08/17/22 12:26 74 18 95 08/17/22 12:27 75 126/73 08/17/22 12:25 77 123/72 08/17/22 12:23 67 118/71 08/17/22 12:21 95 08/17/22 12:21 65 08/17/22 12:21 68 129/75 08/17/22 12:19 81 126/74 08/17/22 12:16 69 96 08/17/22 12:17 66 130/82 08/17/22 12:15 65 134/72 08/17/22 12:11 71 94 08/17/22 12:06 73 96 08/17/22 12:01 72 95 08/17/22 11:56 69 96 08/17/22 11:51 69 96 08/17/22 11:46 71 91 08/17/22 11:47 72 140/84 01/05/23 11:41 68 95 08/17/22 11:36 72 93 08/17/22 11:31 72 93 08/17/22 11:30 67 89 L 08/17/22 11:26 64 91 08/17/22 11:25 69 89 L 08/17/22 11:21 71 93 08/17/22 11:18 66 137/83 89 L 08/17/22 11:16 70 89 L 08/17/22 11:13 67 89 L 08/17/22 11:11 66 89 L 08/17/22 11:07 66 89 L 08/17/22 11:06 63 90 08/17/22 11:01 66 91 08/17/22 10:52 66 89 L 08/17/22 10:51 68 88 L 08/17/22 10:47 68 88 L 08/17/22 10:48 65 136/84 08/17/22 10:46 66 88 L 08/17/22 10:42 67 89 L 08/17/22 10:41 67 89 L 08/17/22 10:36 63 90 08/17/22 10:37 64 89 L 08/17/22 10:31 59 L 93 08/17/22 10:30 67 89 L 08/17/22 10:26 65 97 08/17/22 10:21 67 96 08/17/22 10:18 67 154/89 H 08/17/22 10:16 73 95 08/17/22 10:11 68 96 08/17/22 10:06 70 96 08/17/22 10:01 69 92 08/17/22 09:56 68 95 08/17/22 09:51 68 96 08/17/22 09:48 71 144/86 H 08/17/22 09:46 68 95 08/17/22 09:41 74 95 08/17/22 09:36 67 96 08/17/22 09:31 71 96 08/17/22 09:26 73 96 08/17/22 09:21 72 96 08/17/22 09:16 71 96 08/17/22 09:11 72 94 08/17/22 09:06 76 95
[2022-08-17] MEDS: LABETALOL HCL 100 MG TAB PO SCH (21:29)
--- NOTE | 2022-08-17 23:13 | Obstetrical Progress Note ---
Date of Service August 17, 2022 Assessment & Plan Admission and Anticipated Discharge Date Admission Date: August 15, 2022 Subjective Patient is reevaluated She has been painful, epidural settings were increased and it helped for abut 1- 2 hours and pain is back. VE: 5/ 50%/-3, and -2 with contraction, no change since last exam. IUPC is in, 200-240 mvu/10min adequate Oxytocin is at 28 miu/min FHR categ I Discussed options of either Primary Csection for arrest of dilatation, no progress or epidural bolus for pain control and then stop pitocin to rest uterus and restart it in 1-2 hour for trial of labor Patient understands C section is a major surgery, with risks including but not limited to bleeding , infection, injury to surrounding organs like bowels, bladder, ureters, adhesions, scarring, wound infection, blood cloths in legs/ lungs, longer recovery. All questions were answered. She wants to think about it and decide. Results & Data ([facility]) Vital Signs (Past 12 Hours) Vital Signs Temp Pulse Resp BP Pulse Ox 08/17/22 22:00 16 08/17/22 21:00 18 08/17/22 20:00 18 08/17/22 19:00 18 08/17/22 18:00 16 08/17/22 16:00 36.8 C 18 08/17/22 16:00 18 08/17/22 14:00 18 08/17/22 13:19 16 08/17/22 11:59 36.8 C 18 08/17/22 23:06 86 94 08/17/22 23:01 78 95 08/17/22 22:56 79 93 08/17/22 22:57 81 152/76 H 08/17/22 22:51 74 93 08/17/22 22:46 78 92 08/17/22 22:42 76 152/74 H 08/17/22 22:41 72 95 08/17/22 22:36 79 92 08/17/22 22:30 18 08/17/22 22:30 18 08/17/22 22:31 78 91 08/17/22 22:27 76 150/79 H 08/17/22 22:26 80 96 08/17/22 22:21 74 94 08/17/22 22:16 74 96 08/17/22 22:12 77 146/71 H 08/17/22 22:11 87 96 08/17/22 22:06 75 92 08/17/22 22:01 73 92 08/17/22 21:56 77 91 08/17/22 21:57 75 145/80 H 08/17/22 21:51 79 95 08/17/22 21:46 75 95 08/17/22 21:41 80 96 08/17/22 21:30 18 08/17/22 21:30 18 08/17/22 21:36 81 97 08/17/22 21:31 80 96 08/17/22 21:26 79 95 08/17/22 21:27 80 135/75 08/17/22 21:21 82 95 08/17/22 21:16 83 96 08/17/22 21:00 37.0 C 08/17/22 21:12 84 139/76 08/17/22 21:11 81 95 08/17/22 21:06 81 97 08/17/22 21:01 81 98 08/17/22 20:56 80 96 08/17/22 20:57 83 133/72 08/17/22 20:51 82 97 08/17/22 20:46 77 94 08/17/22 20:43 81 138/92 08/17/22 20:41 72 95 08/17/22 20:36 80 96 08/17/22 20:30 18 08/17/22 20:30 18 08/17/22 20:31 86 91 08/17/22 20:26 80 151/85 H 94 08/17/22 20:21 81 93 08/17/22 20:16 74 93 08/17/22 20:11 76 147/85 H 96 08/17/22 20:06 77 95 08/17/22 20:01 74 91 08/17/22 19:56 85 145/80 H 92 08/17/22 19:51 75 92 08/17/22 19:46 72 93 08/17/22 19:41 82 147/83 H 92 08/17/22 19:30 18 08/17/22 19:30 18 08/17/22 19:36 75 93 08/17/22 19:31 72 93 08/17/22 19:00 18 08/17/22 19:00 36.8 C 18 08/17/22 19:27 76 142/87 H 08/17/22 19:26 75 94 08/17/22 19:21 72 95 08/17/22 19:16 90 96 08/17/22 19:12 77 155/86 H 08/17/22 19:11 83 97 08/17/22 19:06 80 98 08/17/22 19:01 66 97 08/17/22 18:58 74 140/87 08/17/22 18:56 73 96 08/17/22 18:51 76 97 08/17/22 18:46 82 96 08/17/22 18:41 76 96 08/17/22 18:42 75 136/74 08/17/22 18:36 80 96 08/17/22 18:31 77 97 08/17/22 18:27 77 144/73 H 08/17/22 18:26 75 97 08/17/22 18:21 77 98 08/17/22 18:16 76 95 08/17/22 18:11 74 94 08/17/22 18:12 73 129/74 08/17/22 18:06 71 93 08/17/22 18:01 71 96 08/17/22 17:57 80 145/76 H 08/17/22 17:56 74 95 08/17/22 17:51 78 97 08/17/22 17:46 81 97 08/17/22 17:43 81 143/70 H 08/17/22 17:41 91 H 94 08/17/22 17:36 76 95 08/17/22 17:31 77 95 08/17/22 17:27 69 154/90 H 08/17/22 17:26 73 92 08/17/22 17:21 69 93 08/17/22 17:16 73 92 08/17/22 17:13 72 148/92 H 08/17/22 17:11 70 97 08/17/22 17:06 79 95 08/17/22 17:05 85 89 L 08/17/22 17:01 76 95 08/17/22 16:59 72 163/97 H 08/17/22 16:56 81 95 08/17/22 16:51 68 94 08/17/22 16:46 70 91 08/17/22 16:41 68 94 08/17/22 16:42 70 147/88 H 08/17/22 16:36 76 94 08/17/22 16:31 72 93 08/17/22 16:28 74 154/95 H 08/17/22 16:26 75 94 08/17/22 16:21 75 93 08/17/22 16:16 72 95 08/17/22 16:13 72 164/95 H 08/17/22 16:11 75 94 08/17/22 16:06 82 96 08/17/22 16:01 76 96 08/17/22 15:58 78 138/74 08/17/22 15:56 70 94 08/17/22 15:51 78 96 08/17/22 15:46 78 95 08/17/22 15:41 78 95 08/17/22 15:42 78 135/82 08/17/22 15:36 74 94 08/17/22 15:31 74 94 08/17/22 15:26 73 95 08/17/22 15:27 74 135/79 08/17/22 15:21 74 96 08/17/22 15:16 83 98 08/17/22 15:11 83 96 08/17/22 15:12 75 133/76 08/17/22 15:06 78 98 08/17/22 14:40 36.8 C 08/17/22 15:01 74 96 08/17/22 14:58 71 130/67 08/17/22 14:56 80 98 08/17/22 14:51 75 97 08/17/22 14:46 73 98 08/17/22 14:42 75 132/90 08/17/22 14:41 79 97 08/17/22 14:36 70 94 08/17/22 14:31 79 96 08/17/22 14:28 62 152/83 H 08/17/22 14:26 66 94 08/17/22 14:21 63 94 08/17/22 14:16 67 93 08/17/22 14:12 71 136/86 08/17/22 14:11 70 92 08/17/22 14:06 73 97 08/17/22 14:01 70 92 08/17/22 13:56 70 91 08/17/22 13:57 68 128/81 08/17/22 13:51 73 93 08/17/22 13:46 68 91 08/17/22 13:43 63 126/80 08/17/22 13:41 67 92 08/17/22 13:36 66 91 08/17/22 13:31 65 94 08/17/22 13:26 71 92 08/17/22 13:27 69 124/77 08/17/22 13:21 64 91 08/17/22 13:20 71 89 L 08/17/22 13:16 72 91 08/17/22 13:12 64 117/75 08/17/22 13:11 67 92 08/17/22 12:20 18 08/17/22 12:20 18 08/17/22 12:22 18 08/17/22 12:22 18 08/17/22 13:06 69 92 08/17/22 13:01 67 92 08/17/22 12:56 63 92 08/17/22 12:57 76 116/69 08/17/22 12:51 69 89 L 08/17/22 12:46 69 95 08/17/22 12:41 71 111/69 94 08/17/22 12:39 71 109/67 08/17/22 12:36 81 95 08/17/22 12:35 70 119/62 08/17/22 12:33 78 115/58 L 08/17/22 12:31 88 94 08/17/22 12:30 72 18 115/62 08/17/22 12:26 74 18 95 08/17/22 12:27 75 126/73 08/17/22 12:25 77 123/72 08/17/22 12:23 67 118/71 08/17/22 12:21 95 08/17/22 12:21 65 08/17/22 12:21 68 129/75 08/17/22 12:19 81 126/74 08/17/22 12:16 69 96 08/17/22 12:17 66 130/82 08/17/22 12:15 65 134/72 08/17/22 12:11 71 94 08/17/22 12:06 73 96 08/17/22 12:01 72 95 08/17/22 11:56 69 96 08/17/22 11:51 69 96 08/17/22 11:46 71 91 08/17/22 11:47 72 140/84 08/17/22 11:41 68 95 08/17/22 11:36 72 93 08/17/22 11:31 72 93 08/17/22 11:30 67 89 L 08/17/22 11:26 64 91 08/17/22 11:25 69 89 L 08/17/22 11:21 71 93 08/17/22 11:18 66 137/83 89 L 08/17/22 11:16 70 89 L 08/17/22 11:13 67 89 L 08/17/22 11:11 66 89 L
[2022-08-18] MEDS: LACTATED RINGER'S 1,000 ML IV PRN (00:13)
[2022-08-18] MEDS ORDERED: OXYTOCIN 30 UNITS/500 ML BAG IV PRN (00:32)
--- NOTE | 2022-08-18 00:38 | Obstetrical Progress Note ---
Date of Service August 18, 2022 Assessment & Plan Admission and Anticipated Discharge Date Admission Date: August 15, 2022 Subjective Patient thought about this for a while, spoke with her and mom and d ecided to not to have Csection. She likes to continue with trial of labor. Received epidural bolus and comfortable now. No NGUYEN/ Change in vision/N&V/ epig or RUQ pain/ CP/ SOB/ Fever/ chills Reflexes 1 +/ 1+ UOP Excellent BP's stable No s/s of Mag toxicity nor worsening preeclampsia FHR categ I Plan to restart Oxytocin, IV for prolonged SROM, check magnesium levels Continue to monitor closely Results & Data ([facility]) Vital Signs (Past 12 Hours) Vital Signs Temp Pulse Resp BP Pulse Ox 08/18/22 00:00 18 08/17/22 23:00 22 08/17/22 22:00 16 08/17/22 21:00 18 08/17/22 20:00 18 08/17/22 19:00 18 08/17/22 18:00 16 08/17/22 16:00 36.8 C 18 08/17/22 16:00 18 08/17/22 14:00 18 08/17/22 13:19 16 08/18/22 00:32 72 91 08/18/22 00:27 94 08/18/22 00:27 70 08/18/22 00:27 61 118/65 08/18/22 00:25 61 89 L 08/18/22 00:22 63 96 08/18/22 00:20 70 89 L 08/18/22 00:17 92 H 94 08/18/22 00:12 81 93 08/18/22 00:11 80 128/75 08/18/22 00:07 78 96 08/18/22 00:02 79 91 08/17/22 23:57 91 08/17/22 23:57 77 08/17/22 23:00 37.1 C 08/17/22 23:57 73 131/78 08/17/22 23:52 78 92 08/17/22 23:47 73 92 08/17/22 23:42 88 93 08/17/22 23:43 85 140/76 08/17/22 23:37 82 93 08/17/22 23:32 84 94 08/17/22 23:27 96 08/17/22 23:27 86 08/17/22 23:27 88 150/87 H 08/17/22 23:22 84 95 08/17/22 23:17 90 95 08/17/22 23:13 97 H 155/91 H 08/17/22 23:12 101 H 93 08/17/22 23:11 86 88 L 08/17/22 23:06 86 94 08/17/22 23:01 78 95 08/17/22 22:56 79 93 08/17/22 22:57 81 152/76 H 08/17/22 22:51 74 93 08/17/22 22:46 78 92 08/17/22 22:42 76 152/74 H 08/17/22 22:41 72 95 08/17/22 22:36 79 92 08/17/22 22:30 18 08/17/22 22:30 18 08/17/22 22:31 78 91 08/17/22 22:27 76 150/79 H 08/17/22 22:26 80 96 08/17/22 22:21 74 94 08/17/22 22:16 74 96 08/17/22 22:12 77 146/71 H 08/17/22 22:11 87 96 08/17/22 22:06 75 92 08/17/22 22:01 73 92 08/17/22 21:56 77 91 08/17/22 21:57 75 145/80 H 08/17/22 21:51 79 95 08/17/22 21:46 75 95 08/17/22 21:41 80 96 08/17/22 21:30 18 08/17/22 21:30 18 08/17/22 21:36 81 97 08/17/22 21:31 80 96 08/17/22 21:26 79 95 08/17/22 21:27 80 135/75 08/17/22 21:21 82 95 08/17/22 21:16 83 96 08/17/22 21:00 37.0 C 08/17/22 21:12 84 139/76 08/17/22 21:11 81 95 08/17/22 21:06 81 97 08/17/22 21:01 81 98 08/17/22 20:56 80 96 08/17/22 20:57 83 133/72 08/17/22 20:51 82 97 08/17/22 20:46 77 94 08/17/22 20:43 81 138/92 08/17/22 20:41 72 95 08/17/22 20:36 80 96 08/17/22 20:30 18 08/17/22 20:30 18 08/17/22 20:31 86 91 08/17/22 20:26 80 151/85 H 94 08/17/22 20:21 81 93 08/17/22 20:16 74 93 08/17/22 20:11 76 147/85 H 96 08/17/22 20:06 77 95 08/17/22 20:01 74 91 08/17/22 19:56 85 145/80 H 92 08/17/22 19:51 75 92 08/17/22 19:46 72 93 08/17/22 19:41 82 147/83 H 92 08/17/22 19:30 18 08/17/22 19:30 18 08/17/22 19:36 75 93 08/17/22 19:31 72 93 08/17/22 19:00 18 08/17/22 19:00 36.8 C 18 08/17/22 19:27 76 142/87 H 08/17/22 19:26 75 94 08/17/22 19:21 72 95 08/17/22 19:16 90 96 08/17/22 19:12 77 155/86 H 08/17/22 19:11 83 97 08/17/22 19:06 80 98 08/17/22 19:01 66 97 08/17/22 18:58 74 140/87 08/17/22 18:56 73 96 08/17/22 18:51 76 97 08/17/22 18:46 82 96 08/17/22 18:41 76 96 08/17/22 18:42 75 136/74 08/17/22 18:36 80 96 08/17/22 18:31 77 97 08/17/22 18:27 77 144/73 H 08/17/22 18:26 75 97 08/17/22 18:21 77 98 08/17/22 18:16 76 95 08/17/22 18:11 74 94 08/17/22 18:12 73 129/74 08/17/22 18:06 71 93 08/17/22 18:01 71 96 08/17/22 17:57 80 145/76 H 08/17/22 17:56 74 95 08/17/22 17:51 78 97 08/17/22 17:46 81 97 08/17/22 17:43 81 143/70 H 08/17/22 17:41 91 H 94 08/17/22 17:36 76 95 08/17/22 17:31 77 95 08/17/22 17:27 69 154/90 H 08/17/22 17:26 73 92 08/17/22 17:21 69 93 08/17/22 17:16 73 92 08/17/22 17:13 72 148/92 H 08/17/22 17:11 70 97 08/17/22 17:06 79 95 08/17/22 17:05 85 89 L 08/17/22 17:01 76 95 08/17/22 16:59 72 163/97 H 08/17/22 16:56 81 95 08/17/22 16:51 68 94 08/17/22 16:46 70 91 08/17/22 16:41 68 94 08/17/22 16:42 70 147/88 H 08/17/22 16:36 76 94 08/17/22 16:31 72 93 08/17/22 16:28 74 154/95 H 08/17/22 16:26 75 94 08/17/22 16:21 75 93 08/17/22 16:16 72 95 08/17/22 16:13 72 164/95 H 08/17/22 16:11 75 94 08/17/22 16:06 82 96 08/17/22 16:01 76 96 08/17/22 15:58 78 138/74 08/17/22 15:56 70 94 08/17/22 15:51 78 96 08/17/22 15:46 78 95 08/17/22 15:41 78 95 08/17/22 15:42 78 135/82 08/17/22 15:36 74 94 08/17/22 15:31 74 94 08/17/22 15:26 73 95 08/17/22 15:27 74 135/79 08/17/22 15:21 74 96 08/17/22 15:16 83 98 08/17/22 15:11 83 96 08/17/22 15:12 75 133/76 08/17/22 15:06 78 98 08/17/22 14:40 36.8 C 08/17/22 15:01 74 96 08/17/22 14:58 71 130/67 08/17/22 14:56 80 98 08/17/22 14:51 75 97 08/17/22 14:46 73 98 08/17/22 14:42 75 132/90 08/17/22 14:41 79 97 08/17/22 14:36 70 94 08/17/22 14:31 79 96 08/17/22 14:28 62 152/83 H 08/17/22 14:26 66 94 08/17/22 14:21 63 94 08/17/22 14:16 67 93 08/17/22 14:12 71 136/86 08/17/22 14:11 70 92 08/17/22 14:06 73 97 08/17/22 14:01 70 92 08/17/22 13:56 70 91 08/17/22 13:57 68 128/81 08/17/22 13:51 73 93 08/17/22 13:46 68 91 08/17/22 13:43 63 126/80 08/17/22 13:41 67 92 08/17/22 13:36 66 91 08/17/22 13:31 65 94 08/17/22 13:26 71 92 08/17/22 13:27 69 124/77 08/17/22 13:21 64 91 08/17/22 13:20 71 89 L 08/17/22 13:16 72 91 08/17/22 13:12 64 117/75 08/17/22 13:11 67 92 08/17/22 13:06 69 92 08/17/22 13:01 67 92 08/17/22 12:56 63 92 08/17/22 12:57 76 116/69 08/17/22 12:51 69 89 L 08/17/22 12:46 69 95 08/17/22 12:41 71 111/69 94 08/17/22 12:39 71 109/67 08/17/22 12:36 81 95 08/17/22 12:35 70 119/62
[2022-08-18] MEDS: ceFAZolin 2000MG 2,000 MG/15 ML SYR IV SCH ×2 (02:06→16:13)
[2022-08-18] MEDS: CLINDAMYCIN/D5W 900 MG/50 ML BAG IV SCH ×2 (02:06→16:13)
[2022-08-18] MEDS: fentaNYL 2MCG/ML ROPIVACAINE 1.25MG/ML 100 ML BAG EPI PRN ×2 (02:08→07:28)
[2022-08-18] MEDS: LEVOTHYROXINE SODIUM 100 MCG TABLET PO SCH (06:00)
--- NOTE | 2022-08-18 06:39 | Obstetrical Progress Note ---
Date of Service August 18, 2022 Assessment & Plan Admission and Anticipated Discharge Date Admission Date: August 15, 2022 Subjective Patient is seen and examined She slept and woke up. Feels well. VE: 4-5 cm/ 50-60% -2, coned head FHR categ I, decreased variability, responded to scalp stimulation with 10x10 accel and increased variability Patient now desires Csection. Understands the risks and signed an informed consent. All questions were answered. Results & Data ([facility]) Vital Signs (Past 12 Hours) Vital Signs Temp Pulse Resp BP Pulse Ox 08/18/22 06:04 18 08/18/22 05:00 16 08/18/22 04:00 18 08/18/22 03:07 18 08/18/22 02:00 18 08/18/22 01:00 18 08/18/22 00:00 18 08/17/22 23:00 22 08/17/22 22:00 16 08/17/22 21:00 18 08/17/22 20:00 18 08/17/22 19:00 18 08/18/22 06:32 84 94 08/18/22 06:27 87 92 08/18/22 06:25 82 141/78 H 08/18/22 06:22 80 94 08/18/22 06:17 89 93 08/18/22 06:12 84 92 08/18/22 06:11 77 143/80 H 08/18/22 06:07 84 94 08/18/22 06:02 85 91 08/18/22 05:57 85 91 08/18/22 05:55 86 148/78 H 08/18/22 05:52 82 91 08/18/22 05:30 18 08/18/22 05:30 18 08/18/22 05:47 82 91 08/18/22 05:42 87 94 08/18/22 05:41 80 147/76 H 08/18/22 05:37 89 90 08/18/22 05:30 18 08/18/22 05:30 18 08/18/22 05:32 91 08/18/22 05:32 87 08/18/22 05:32 92 H 89 L 08/18/22 05:27 90 90 08/18/22 05:25 84 137/72 08/18/22 05:22 91 H 91 08/18/22 05:20 96 H 86 L 08/18/22 05:17 85 91 08/18/22 05:00 37.3 C 08/18/22 05:14 88 89 L 08/18/22 05:12 79 91 08/18/22 05:10 80 137/73 08/18/22 05:07 77 90 08/18/22 05:02 82 93 08/18/22 04:58 82 89 L 08/18/22 04:57 89 L 08/18/22 04:57 82 08/18/22 04:57 80 123/75 08/18/22 04:53 84 89 L 08/18/22 04:52 82 89 L 08/18/22 04:47 84 90 08/18/22 04:46 85 89 L 08/18/22 04:42 83 89 L 08/18/22 04:41 83 88 L 08/18/22 04:40 85 138/70 08/18/22 04:37 83 89 L 08/18/22 04:34 80 89 L 08/18/22 04:30 18 08/18/22 04:30 18 08/18/22 04:32 81 89 L 08/18/22 04:29 83 89 L 08/18/22 04:27 83 88 L 08/18/22 04:26 80 127/73 08/18/22 04:24 81 89 L 08/18/22 04:22 89 91 08/18/22 04:00 18 08/18/22 04:00 18 08/18/22 04:17 84 89 L 08/18/22 04:16 83 88 L 08/18/22 04:12 84 89 L 08/18/22 04:11 83 139/72 89 L 08/18/22 04:07 82 89 L 08/18/22 04:06 81 89 L 08/18/22 04:02 84 89 L 08/18/22 04:01 81 89 L 08/18/22 03:57 79 89 L 08/18/22 03:55 83 89 L 08/18/22 03:54 81 121/68 08/18/22 03:52 76 90 08/18/22 03:50 83 89 L 08/18/22 03:47 79 89 L 08/18/22 03:45 83 88 L 08/18/22 03:42 86 88 L 08/18/22 03:40 78 125/74 08/18/22 03:38 83 89 L 08/18/22 03:30 18 08/18/22 03:30 18 08/18/22 03:37 83 88 L 08/18/22 03:32 91 08/18/22 03:32 85 08/18/22 03:32 85 89 L 08/18/22 03:27 82 89 L 08/18/22 03:26 83 89 L 08/18/22 03:24 90 133/71 08/18/22 03:22 87 88 L 08/18/22 03:17 86 88 L 08/18/22 03:16 82 89 L 08/18/22 03:12 86 87 L 08/18/22 03:10 88 89 L 08/18/22 03:09 90 135/74 08/18/22 03:00 37.6 C H 08/18/22 03:07 84 89 L 08/18/22 03:02 86 88 L 08/18/22 02:59 87 89 L 08/18/22 02:57 87 87 L 08/18/22 02:55 85 127/74 08/18/22 02:53 84 89 L 08/18/22 02:52 85 87 L 08/18/22 02:47 82 90 08/18/22 02:48 84 89 L 08/18/22 02:42 83 90 08/18/22 02:37 83 90 08/18/22 02:30 16 08/18/22 02:30 16 08/18/22 02:32 87 90 08/18/22 02:27 81 91 08/18/22 02:22 78 91 08/18/22 02:17 83 94 08/18/22 02:12 81 93 08/18/22 02:13 81 135/76 08/18/22 02:07 79 92 08/18/22 02:02 80 94 08/18/22 01:57 86 132/74 91 08/18/22 01:52 78 90 08/18/22 01:53 83 89 L 08/18/22 01:47 91 08/18/22 01:47 76 08/18/22 01:30 18 08/18/22 01:30 18 08/18/22 01:47 83 89 L 08/18/22 01:42 89 L 08/18/22 01:42 84 08/18/22 01:42 79 89 L 08/18/22 01:41 80 134/75 08/18/22 01:37 76 91 08/18/22 01:33 80 89 L 08/18/22 01:32 78 91 08/18/22 01:27 81 88 L 08/18/22 01:26 81 128/72 08/18/22 01:22 73 91 08/18/22 01:18 77 89 L 08/18/22 01:17 72 91 08/18/22 01:13 79 89 L 08/18/22 01:00 37.2 C 08/18/22 01:12 84 90 08/18/22 01:11 74 121/71 08/18/22 01:07 73 91 08/18/22 01:06 81 88 L 08/18/22 01:02 75 90 08/18/22 00:57 76 90 08/18/22 00:56 79 124/71 08/18/22 00:52 72 91 08/18/22 00:30 18 08/18/22 00:30 18 08/18/22 00:47 74 90 08/18/22 00:42 68 91 08/18/22 00:41 70 125/70 08/18/22 00:37 75 92 08/18/22 00:32 72 91 08/18/22 00:27 94 08/18/22 00:27 70 08/18/22 00:27 61 118/65 08/18/22 00:25 61 89 L 08/18/22 00:22 63 96 08/18/22 00:20 70 89 L 08/18/22 00:17 92 H 94 08/18/22 00:12 81 93 08/18/22 00:11 80 128/75 08/18/22 00:07 78 96 08/18/22 00:02 79 91 08/17/22 23:57 91 08/17/22 23:57 77 08/17/22 23:00 37.1 C 08/17/22 23:57 73 131/78 08/17/22 23:52 78 92 08/17/22 23:47 73 92 08/17/22 23:42 88 93 08/17/22 23:43 85 140/76 08/17/22 23:37 82 93 08/17/22 23:32 84 94 08/17/22 23:27 96 08/17/22 23:27 86 08/17/22 23:27 88 150/87 H 08/17/22 23:22 84 95 08/17/22 23:17 90 95 08/17/22 23:13 97 H 155/91 H 08/17/22 23:12 101 H 93 08/17/22 23:11 86 88 L 08/17/22 23:06 86 94 08/17/22 23:01 78 95 08/17/22 22:56 79 93 08/17/22 22:57 81 152/76 H 08/17/22 22:51 74 93 08/17/22 22:46 78 92 08/17/22 22:42 76 152/74 H 08/17/22 22:41 72 95 08/17/22 22:36 79 92 08/17/22 22:30 18 08/17/22 22:30 18 08/17/22 22:31 78 91 08/17/22 22:27 76 150/79 H 08/17/22 22:26 80 96 08/17/22 22:21 74 94 08/17/22 22:16 74 96 08/17/22 22:12 77 146/71 H 08/17/22 22:11 87 96 08/17/22 22:06 75 92 08/17/22 22:01 73 92 08/17/22 21:56 77 91 08/17/22 21:57 75 145/80 H 08/17/22 21:51 79 95 08/17/22 21:46 75 95 08/17/22 21:41 80 96 08/17/22 21:30 18 08/17/22 21:30 18 08/17/22 21:36 81 97 08/17/22 21:31 80 96 08/17/22 21:26 79 95 08/17/22 21:27 80 135/75 08/17/22 21:21 82 95 08/17/22 21:16 83 96 08/17/22 21:00 37.0 C 08/17/22 21:12 84 139/76 08/17/22 21:11 81 95 08/17/22 21:06 81 97 08/17/22 21:01 81 98 08/17/22 20:56 80 96 08/17/22 20:57 83 133/72 08/17/22 20:51 82 97 08/17/22 20:46 77 94 08/17/22 20:43 81 138/92 08/17/22 20:41 72 95 08/17/22 20:36 80 96 08/17/22 20:30 18 08/17/22 20:30 18 08/17/22 20:31 86 91 08/17/22 20:26 80 151/85 H 94 08/17/22 20:21 81 93 08/17/22 20:16 74 93 08/17/22 20:11 76 147/85 H 96 08/17/22 20:06 77 95 08/17/22 20:01 74 91 08/17/22 19:56 85 145/80 H 92 08/17/22 19:51 75 92 08/17/22 19:46 72 93 08/17/22 19:41 82 147/83 H 92 08/17/22 19:30 18 08/17/22 19:30 18 08/17/22 19:36 75 93 08/17/22 19:31 72 93 08/17/22 19:00 18 08/17/22 19:00 36.8 C 18 08/17/22 19:27 76 142/87 H 08/17/22 19:26 75 94 08/17/22 19:21 72 95 08/17/22 19:16 90 96 08/17/22 19:12 77 155/86 H 08/17/22 19:11 83 97 08/17/22 19:06 80 98 08/17/22 19:01 66 97 08/17/22 18:58 74 140/87 08/17/22 18:56 73 96 08/17/22 18:51 76 97 08/17/22 18:46 82 96 08/17/22 18:41 76 96 08/17/22 18:42 75 136/74
[2022-08-18 06:41] LABS: Basophils # (auto) 0.03 K/uL (0-0.2); Basophils % (auto) 0.2 %; Eosinophils # (auto) 0.02 K/uL (0-0.50); Eosinophils % (auto) 0.1 %; Hematocrit (blood only) 32.3 % (34.1-44.9); Hemoglobin 10.3 g/dl (12.0-16.0); Immature Granulocytes # (auto) 0.09 K/uL (0.00-0.02); Immature Granulocytes % (auto) 0.6 %; Lymphocytes # (auto) 1.53 K/uL (1.2-3.4); Lymphocytes % (auto) 10.4 %; Mean Corpuscular Hemoglobin 25.4 pg (25.0-34.0); Mean Corpuscular Hgb Conc 31.9 g/dL (32.0-36.0); Mean Corpuscular Volume 79.6 fL (80.0-100.0); Mean Platelet Volume 10.2 fL (9.4-12.3); Monocytes # (auto) 1.05 K/uL (0.24-0.82); Monocytes % (auto) 7.2 %; Neutrophils # (auto) 11.95 K/uL (1.4-6.5); Neutrophils % (auto) 81.5 %; Platelet Count 257 K/uL (130-400); RDW Coefficient of Variation 15.3 % (11.5-14.5); RDW Standard Deviation 43.9 fL (36.4-46.3); Red Blood Count 4.06 M/uL (3.93-5.22); White Blood Count 14.67 K/ul (4.8-10.8)
[2022-08-18] MEDS ORDERED: CITRIC ACID/SODIUM CITRATE 15 ML UDC ONE (06:46)
[2022-08-18 07:00] LABS: Creatinine Clr Calc Pharmacy 208.3 ml/min; Est GFR (African American) 149.5 ml/min; Potassium 3.8 mmol/L (3.5-5.1)
[2022-08-18] MEDS ORDERED: CLINDAMYCIN/D5W 900 MG/50 ML BAG IV SCH (07:00)
[2022-08-18] MEDS ORDERED: CITRIC ACID/SODIUM CITRATE 15 ML UDC PO SCH (07:00)
[2022-08-18 07:01] LABS: Bilirubin,Total 0.8 mg/dl (0.2-1.0); Calcium 7.4 mg/dl (8.5-10.1); Globulin 3.1 gm/dl (2.5-4.0); Total Protein 6.1 gm/dl (6.0-8.3)
[2022-08-18] MEDS ORDERED: LIDOCAINE 2%/EPINEPHRINE 1:200,000 20 ML SDV ONE (07:02)
[2022-08-18] MEDS ORDERED: SODIUM BICARB 8.4% INJ 50 MEQ/50 ML SYR IV ONE (07:03)
[2022-08-18] MEDS ORDERED: OXYTOCIN 10 UNITS/ML VIAL ONE (08:12)
[2022-08-18] MEDS ORDERED: MoRPHine SULFATE PF 1 MG/ML 10 ML AMP/VIAL ONE (08:14)
[2022-08-18] MEDS ORDERED: MoRPHine SULFATE PF 1 MG/ML 10 ML AMP/VIAL EPI ONE (08:35)
[2022-08-18] MEDS ORDERED: NALBUPHINE HCL INJ 10 MG/ML AMP IV PRN (08:35)
[2022-08-18] MEDS ORDERED: ONDANSETRON INJ 2 MG/ML 2 ML VIAL IV PRN (08:35)
[2022-08-18] MEDS ORDERED: ePHEDrine sulfate 50 MG/ML AMP IV PRN (08:35)
[2022-08-18] MEDS ORDERED: PROMETHAZINE HCL 12.5 MG in SODIUM CHLORIDE 0.9% 50 ML IV PRN (08:35)
[2022-08-18] MEDS ORDERED: HYDROmorphone INJ 0.5 MG/0.5 ML SYR IV PRN (08:35)
[2022-08-18] MEDS ORDERED: diphenhydrAMINE 50 MG/ML VIAL IV PRN (08:35)
[2022-08-18] MEDS ORDERED: NALOXONE HCL 0.08 MG in SYRINGE 1.8 ML IV PRN (08:35)
[2022-08-18] MEDS ORDERED: KETOROLAC 30 MG/ML VIAL IV PRN (08:35)
[2022-08-18] MEDS ORDERED: NALOXONE HCL 1 MG in SODIUM CHLORIDE 0.9% 1000ML 1,000 ML IV PRN (08:35)
[2022-08-18] MEDS ORDERED: NALOXONE HCL 0.4 MG/1 ML VIAL/CARP IV PRN (08:35)
[2022-08-18] MEDS ORDERED: LACTATED RINGER'S 500 ML IV PRN (08:35)
[2022-08-18] MEDS ORDERED: NO NARCOTICS OR SEDATIVES SCH (08:45)
[2022-08-18] MEDS ORDERED: SODIUM CHLORIDE 0.9% 1000ML 1,000 ML IV SCH (08:45)
[2022-08-18] MEDS ORDERED: DC INTRASPINAL MORPHINE SCH (08:45)
[2022-08-18] MEDS ORDERED: OXYTOCIN 10 UNITS/ML 10ML VIAL ONE (08:48)
[2022-08-18] MEDS ORDERED: KETOROLAC 30 MG/ML VIAL ONE (08:48)
[2022-08-18] MEDS ORDERED: ePHEDrine sulfate 50 MG/ML SYR ONE (08:48)
[2022-08-18] MEDS ORDERED: PHENYLEPHRINE 100MCG/ML 5ML SYR ONE (08:48)
[2022-08-18] MEDS ORDERED: OXYTOCIN 10 UNITS/ML 10ML VIAL IM ONE (08:50)
[2022-08-18] MEDS ORDERED: miSOPROStoL 200 MCG TAB ONE (08:59)
--- NOTE | 2022-08-18 09:05 | Post Operative Brief Note ---
Immediate Post Op Note v1 Date of Surgery August 18, 2022 Pre & Post Diagnosis Operation Date: 08/18/22 06:45 Pre-Op Diagnosis: Intrauterine 37 5/7 weeks, preeclampsia with severe features, arrest of dilation, failure to progress. Post-Op Diagnosis: Intrauterine 37 5/7 weeks, preeclampsia with severe features, arrest of dilation, failure to progress. section for living male child at 0816 I identified the patient and participated in the time-out.: Yes Procedure Operation Date: 08/18/22 06:45 Actual Procedures p Section in LD living male child at 0816(Bilateral) - Dionne Lopez MD Surgeon Dionne Miner MD Precision Lens Generator Dr Saldaña Estimated Blood Loss 500 Findings Consistent with Post-Op Diagnosis Drains Andujar Catheter Anesthesia Type Labor Epidural Complications none
[2022-08-18] MEDS ORDERED: HYDROCORTISONE ACETATE 25 MG SUPP PR PRN (09:09)
[2022-08-18] MEDS ORDERED: BENZOCAINE 20% AER SPR 82.5 GM CAN EXT PRN (09:09)
[2022-08-18] MEDS ORDERED: MAGNESIUM HYDROXIDE SUSP 30 ML UDC PO PRN (09:09)
[2022-08-18] MEDS ORDERED: DIPHTHERIA/TETANUS/PERTUSSIS 0.5mL SYR/VIAL (Age 7+yrs) IM ONE (09:09)
[2022-08-18] MEDS ORDERED: SENNA 8.6 MG TAB PO PRN (09:09)
[2022-08-18] MEDS ORDERED: MEASLES, MUMPS & RUBELLA VIRUS VIAL SQ ONE (09:14)
[2022-08-18] MEDS ORDERED: LACTATED RINGER'S 1,000 ML IV SCH (09:15)
[2022-08-18] MEDS ORDERED: miSOPROStoL 200 MCG TAB PR ONE (09:25)
--- NOTE | 2022-08-18 09:46 | Anesthesia Procedure Note ---
Date of Service August 18, 2022 Anesthesia Post Epidural Note Vital Signs Vital Signs: Temp Pulse Resp BP Pulse Ox O2 Del Method 98.4 F 78 20 126/70 92 08/18/22 09:10 08/18/22 09:44 08/18/22 09:30 08/18/22 09:39 08/18/22 09:44 08/16/22 19:00 Pain Intensity Bilateral Head: Pain Intensity: 8 Bilateral Abdomen: Pain Intensity: 7 Notes Mental Status: alert / awake / arousable and participated in evaluation Nausea / Vomiting: adequately controlled Pain: adequately controlled Airway Patency, RR, SpO2: stable & adequate BP & HR: stable & adequate Hydration State: stable & adequate Neuraxial Anesthesia: was administered and sensory block is resolving Anesthetic Complications: no major complications apparent and Pt Satisfied with anesthetic care Epidural: Removed without complications and With tip intact
--- NOTE | 2022-08-18 09:47 | Anesthesiology Progress Note ---
Date of Service August 18, 2022 Anesthesia Post Procedure Vital Signs Vital Signs: Temp Pulse Resp BP Pulse Ox 08/18/22 09:30 20 08/18/22 09:20 18 08/18/22 09:10 98.4 F 18 08/18/22 06:04 18 08/18/22 05:00 16 08/18/22 04:00 18 08/18/22 03:07 18 08/18/22 02:00 18 08/18/22 01:00 18 08/18/22 00:00 18 08/17/22 23:00 22 08/17/22 22:00 16 08/17/22 21:00 18 08/17/22 20:00 18 08/17/22 19:00 18 08/17/22 18:00 16 08/17/22 16:00 98.2 F 18 08/17/22 16:00 18 08/17/22 14:00 18 08/17/22 13:19 16 08/17/22 11:59 98.2 F 18 08/17/22 11:00 16 08/17/22 10:00 18 08/18/22 09:44 78 92 08/18/22 09:39 93 08/18/22 09:39 80 08/18/22 09:39 83 126/70 08/18/22 09:38 85 90 08/18/22 09:34 74 94 08/18/22 09:29 90 08/18/22 09:29 72 08/18/22 09:29 64 134/75 08/18/22 09:24 80 92 08/18/22 09:21 76 86 L 08/18/22 09:19 69 129/72 90 08/18/22 09:15 75 90 08/18/22 09:14 70 92 08/18/22 09:09 70 126/68 93 08/18/22 07:47 72 96 08/18/22 07:42 77 95 08/18/22 07:40 76 159/80 H 08/18/22 07:37 85 94 08/18/22 07:32 84 93 08/18/22 07:27 82 94 08/18/22 07:25 79 129/78 08/18/22 07:22 83 95 08/18/22 07:17 83 93 08/18/22 07:12 80 94 08/18/22 07:10 98.1 F 83 18 154/83 H 08/18/22 07:07 83 93 08/18/22 07:02 87 95 08/18/22 06:57 85 160/78 H 94 08/18/22 06:52 84 96 08/18/22 06:47 86 94 08/18/22 06:42 88 94 08/18/22 06:40 84 143/78 H 08/18/22 06:37 84 93 08/18/22 06:32 84 94 08/18/22 06:27 87 92 08/18/22 06:25 82 141/78 H 08/18/22 06:22 80 94 08/18/22 06:17 89 93 08/18/22 06:12 84 92 08/18/22 06:11 77 143/80 H 08/18/22 06:07 84 94 08/18/22 06:02 85 91 08/18/22 05:57 85 91 08/18/22 05:55 86 148/78 H 08/18/22 05:52 82 91 08/18/22 05:30 18 08/18/22 05:30 18 08/18/22 05:47 82 91 08/18/22 05:42 87 94 08/18/22 05:41 80 147/76 H 08/18/22 05:37 89 90 08/18/22 05:30 18 08/18/22 05:30 18 08/18/22 05:32 91 08/18/22 05:32 87 08/18/22 05:32 92 H 89 L 08/18/22 05:27 90 90 08/18/22 05:25 84 137/72 08/18/22 05:22 91 H 91 08/18/22 05:20 96 H 86 L 08/18/22 05:17 85 91 08/18/22 05:00 99.1 F 08/18/22 05:14 88 89 L 08/18/22 05:12 79 91 08/18/22 05:10 80 137/73 08/18/22 05:07 77 90 08/18/22 05:02 82 93 08/18/22 04:58 82 89 L 08/18/22 04:57 89 L 08/18/22 04:57 82 08/18/22 04:57 80 123/75 01/06/23 04:53 84 89 L 08/18/22 04:52 82 89 L 08/18/22 04:47 84 90 08/18/22 04:46 85 89 L 08/18/22 04:42 83 89 L 08/18/22 04:41 83 88 L 08/18/22 04:40 85 138/70 08/18/22 04:37 83 89 L 08/18/22 04:34 80 89 L 08/18/22 04:30 18 08/18/22 04:30 18 08/18/22 04:32 81 89 L 08/18/22 04:29 83 89 L 08/18/22 04:27 83 88 L 08/18/22 04:26 80 127/73 08/18/22 04:24 81 89 L 08/18/22 04:22 89 91 08/18/22 04:00 18 08/18/22 04:00 18 08/18/22 04:17 84 89 L 08/18/22 04:16 83 88 L 08/18/22 04:12 84 89 L 08/18/22 04:11 83 139/72 89 L 08/18/22 04:07 82 89 L 08/18/22 04:06 81 89 L 08/18/22 04:02 84 89 L 08/18/22 04:01 81 89 L 08/18/22 03:57 79 89 L 08/18/22 03:55 83 89 L 08/18/22 03:54 81 121/68 08/18/22 03:52 76 90 08/18/22 03:50 83 89 L 08/18/22 03:47 79 89 L 08/18/22 03:45 83 88 L 08/18/22 03:42 86 88 L 08/18/22 03:40 78 125/74 08/18/22 03:38 83 89 L 08/18/22 03:30 18 08/18/22 03:30 18 08/18/22 03:37 83 88 L 08/18/22 03:32 91 08/18/22 03:32 85 08/18/22 03:32 85 89 L 08/18/22 03:27 82 89 L 08/18/22 03:26 83 89 L 08/18/22 03:24 90 133/71 08/18/22 03:22 87 88 L 08/18/22 03:17 86 88 L 08/18/22 03:16 82 89 L 08/18/22 03:12 86 87 L 08/18/22 03:10 88 89 L 08/18/22 03:09 90 135/74 08/18/22 03:00 99.7 F H 08/18/22 03:07 84 89 L 08/18/22 03:02 86 88 L 08/18/22 02:59 87 89 L 08/18/22 02:57 87 87 L 08/18/22 02:55 85 127/74 08/18/22 02:53 84 89 L 08/18/22 02:52 85 87 L 08/18/22 02:47 82 90 08/18/22 02:48 84 89 L 08/18/22 02:42 83 90 08/18/22 02:37 83 90 08/18/22 02:30 16 08/18/22 02:30 16 08/18/22 02:32 87 90 08/18/22 02:27 81 91 08/18/22 02:22 78 91 08/18/22 02:17 83 94 08/18/22 02:12 81 93 08/18/22 02:13 81 135/76 08/18/22 02:07 79 92 08/18/22 02:02 80 94 08/18/22 01:57 86 132/74 91 08/18/22 01:52 78 90 08/18/22 01:53 83 89 L 08/18/22 01:47 91 08/18/22 01:47 76 08/18/22 01:30 18 08/18/22 01:30 18 08/18/22 01:47 83 89 L 08/18/22 01:42 89 L 08/18/22 01:42 84 08/18/22 01:42 79 89 L 08/18/22 01:41 80 134/75 08/18/22 01:37 76 91 08/18/22 01:33 80 89 L 08/18/22 01:32 78 91 08/18/22 01:27 81 88 L 08/18/22 01:26 81 128/72 08/18/22 01:22 73 91 08/18/22 01:18 77 89 L 08/18/22 01:17 72 91 08/18/22 01:13 79 89 L 08/18/22 01:00 99.0 F 08/18/22 01:12 84 90 08/18/22 01:11 74 121/71 08/18/22 01:07 73 91 08/18/22 01:06 81 88 L 08/18/22 01:02 75 90 08/18/22 00:57 76 90 08/18/22 00:56 79 124/71 08/18/22 00:52 72 91 08/18/22 00:30 18 08/18/22 00:30 18 08/18/22 00:47 74 90 08/18/22 00:42 68 91 08/18/22 00:41 70 125/70 08/18/22 00:37 75 92 08/18/22 00:32 72 91 08/18/22 00:27 94 08/18/22 00:27 70 08/18/22 00:27 61 118/65 08/18/22 00:25 61 89 L 08/18/22 00:22 63 96 08/18/22 00:20 70 89 L 08/18/22 00:17 92 H 94 08/18/22 00:12 81 93 08/18/22 00:11 80 128/75 08/18/22 00:07 78 96 08/18/22 00:02 79 91 08/17/22 23:57 91 08/17/22 23:57 77 08/17/22 23:00 98.8 F 08/17/22 23:57 73 131/78 08/17/22 23:52 78 92 08/17/22 23:47 73 92 08/17/22 23:42 88 93 08/17/22 23:43 85 140/76 08/17/22 23:37 82 93 08/17/22 23:32 84 94 08/17/22 23:27 96 08/17/22 23:27 86 08/17/22 23:27 88 150/87 H 08/17/22 23:22 84 95 08/17/22 23:17 90 95 08/17/22 23:13 97 H 155/91 H 08/17/22 23:12 101 H 93 08/17/22 23:11 86 88 L 08/17/22 23:06 86 94 08/17/22 23:01 78 95 08/17/22 22:56 79 93 08/17/22 22:57 81 152/76 H 08/17/22 22:51 74 93 08/17/22 22:46 78 92 08/17/22 22:42 76 152/74 H 08/17/22 22:41 72 95 08/17/22 22:36 79 92 08/17/22 22:30 18 08/17/22 22:30 18 08/17/22 22:31 78 91 08/17/22 22:27 76 150/79 H 08/17/22 22:26 80 96 08/17/22 22:21 74 94 08/17/22 22:16 74 96 08/17/22 22:12 77 146/71 H 08/17/22 22:11 87 96 08/17/22 22:06 75 92 08/17/22 22:01 73 92 08/17/22 21:56 77 91 08/17/22 21:57 75 145/80 H 08/17/22 21:51 79 95 08/17/22 21:46 75 95 08/17/22 21:41 80 96 08/17/22 21:30 18 08/17/22 21:30 18 08/17/22 21:36 81 97 08/17/22 21:31 80 96 08/17/22 21:26 79 95 08/17/22 21:27 80 135/75 08/17/22 21:21 82 95 08/17/22 21:16 83 96 08/17/22 21:00 98.6 F 08/17/22 21:12 84 139/76 08/17/22 21:11 81 95 08/17/22 21:06 81 97 08/17/22 21:01 81 98 08/17/22 20:56 80 96 08/17/22 20:57 83 133/72 08/17/22 20:51 82 97 08/17/22 20:46 77 94 08/17/22 20:43 81 138/92 08/17/22 20:41 72 95 08/17/22 20:36 80 96 08/17/22 20:30 18 08/17/22 20:30 18 08/17/22 20:31 86 91 08/17/22 20:26 80 151/85 H 94 08/17/22 20:21 81 93 08/17/22 20:16 74 93 08/17/22 20:11 76 147/85 H 96 08/17/22 20:06 77 95 08/17/22 20:01 74 91 08/17/22 19:56 85 145/80 H 92 08/17/22 19:51 75 92 08/17/22 19:46 72 93 08/17/22 19:41 82 147/83 H 92 08/17/22 19:30 18 08/17/22 19:30 18 08/17/22 19:36 75 93 08/17/22 19:31 72 93 08/17/22 19:00 18 08/17/22 19:00 98.2 F 18 08/17/22 19:27 76 142/87 H 08/17/22 19:26 75 94 08/17/22 19:21 72 95 08/17/22 19:16 90 96 08/17/22 19:12 77 155/86 H 08/17/22 19:11 83 97 08/17/22 19:06 80 98 08/17/22 19:01 66 97 08/17/22 18:58 74 140/87 08/17/22 18:56 73 96 08/17/22 18:51 76 97 08/17/22 18:46 82 96 08/17/22 18:41 76 96 08/17/22 18:42 75 136/74 08/17/22 18:36 80 96 08/17/22 18:31 77 97 08/17/22 18:27 77 144/73 H 08/17/22 18:26 75 97 08/17/22 18:21 77 98 08/17/22 18:16 76 95 08/17/22 18:11 74 94 08/17/22 18:12 73 129/74 08/17/22 18:06 71 93 08/17/22 18:01 71 96 08/17/22 17:57 80 145/76 H 08/17/22 17:56 74 95 08/17/22 17:51 78 97 08/17/22 17:46 81 97 08/17/22 17:43 81 143/70 H 08/17/22 17:41 91 H 94 08/17/22 17:36 76 95 08/17/22 17:31 77 95 08/17/22 17:27 69 154/90 H 08/17/22 17:26 73 92 08/17/22 17:21 69 93 08/17/22 17:16 73 92 08/17/22 17:13 72 148/92 H 08/17/22 17:11 70 97 08/17/22 17:06 79 95 08/17/22 17:05 85 89 L 08/17/22 17:01 76 95 08/17/22 16:59 72 163/97 H 08/17/22 16:56 81 95 08/17/22 16:51 68 94 08/17/22 16:46 70 91 08/17/22 16:41 68 94 08/17/22 16:42 70 147/88 H 08/17/22 16:36 76 94 08/17/22 16:31 72 93 08/17/22 16:28 74 154/95 H 08/17/22 16:26 75 94 08/17/22 16:21 75 93 08/17/22 16:16 72 95 08/17/22 16:13 72 164/95 H 08/17/22 16:11 75 94 08/17/22 16:06 82 96 08/17/22 16:01 76 96 08/17/22 15:58 78 138/74 08/17/22 15:56 70 94 08/17/22 15:51 78 96 08/17/22 15:46 78 95 08/17/22 15:41 78 95 08/17/22 15:42 78 135/82 08/17/22 15:36 74 94 08/17/22 15:31 74 94 08/17/22 15:26 73 95 08/17/22 15:27 74 135/79 08/17/22 15:21 74 96 08/17/22 15:16 83 98 08/17/22 15:11 83 96 08/17/22 15:12 75 133/76 08/17/22 15:06 78 98 08/17/22 14:40 98.2 F 08/17/22 15:01 74 96 08/17/22 14:58 71 130/67 08/17/22 14:56 80 98 08/17/22 14:51 75 97 08/17/22 14:46 73 98 08/17/22 14:42 75 132/90 08/17/22 14:41 79 97 08/17/22 14:36 70 94 08/17/22 14:31 79 96 08/17/22 14:28 62 152/83 H 08/17/22 14:26 66 94 08/17/22 14:21 63 94 08/17/22 14:16 67 93 08/17/22 14:12 71 136/86 08/17/22 14:11 70 92 08/17/22 14:06 73 97 08/17/22 14:01 70 92 08/17/22 13:56 70 91 08/17/22 13:57 68 128/81 08/17/22 13:51 73 93 08/17/22 13:46 68 91 08/17/22 13:43 63 126/80 08/17/22 13:41 67 92 08/17/22 13:36 66 91 08/17/22 13:31 65 94 08/17/22 13:26 71 92 08/17/22 13:27 69 124/77 08/17/22 13:21 64 91 08/17/22 13:20 71 89 L 08/17/22 13:16 72 91 08/17/22 13:12 64 117/75 08/17/22 13:11 67 92 08/17/22 12:20 18 08/17/22 12:20 18 08/17/22 12:22 18 08/17/22 12:22 18 08/17/22 13:06 69 92 08/17/22 13:01 67 92 08/17/22 12:56 63 92 08/17/22 12:57 76 116/69 08/17/22 12:51 69 89 L 08/17/22 12:46 69 95 08/17/22 12:41 71 111/69 94 08/17/22 12:39 71 109/67 08/17/22 12:36 81 95 08/17/22 12:35 70 119/62 08/17/22 12:33 78 115/58 L 08/17/22 12:31 88 94 08/17/22 12:30 72 18 115/62 08/17/22 12:26 74 18 95 08/17/22 12:27 75 126/73 08/17/22 12:25 77 123/72 08/17/22 12:23 67 118/71 08/17/22 12:21 95 08/17/22 12:21 65 08/17/22 12:21 68 129/75 08/17/22 12:19 81 126/74 08/17/22 12:16 69 96 08/17/22 12:17 66 130/82 08/17/22 12:15 65 134/72 08/17/22 12:11 71 94 08/17/22 12:06 73 96 08/17/22 12:01 72 95 08/17/22 11:56 69 96 08/17/22 11:51 69 96 08/17/22 11:46 71 91 08/17/22 11:47 72 140/84 08/17/22 11:41 68 95 08/17/22 11:36 72 93 08/17/22 11:31 72 93 08/17/22 11:30 67 89 L 08/17/22 11:26 64 91 08/17/22 11:25 69 89 L 08/17/22 11:21 71 93 08/17/22 11:18 66 137/83 89 L 08/17/22 11:16 70 89 L 08/17/22 11:13 67 89 L 08/17/22 11:11 66 89 L 08/17/22 11:07 66 89 L 08/17/22 11:06 63 90 08/17/22 11:01 66 91 08/17/22 10:52 66 89 L 08/17/22 10:51 68 88 L 08/17/22 10:47 68 88 L 08/17/22 10:48 65 136/84 08/17/22 10:46 66 88 L 08/17/22 10:42 67 89 L 08/17/22 10:41 67 89 L 08/17/22 10:36 63 90 08/17/22 10:37 64 89 L 08/17/22 10:31 59 L 93 08/17/22 10:30 67 89 L 08/17/22 10:26 65 97 08/17/22 10:21 67 96 08/17/22 10:18 67 154/89 H 08/17/22 10:16 73 95 08/17/22 10:11 68 96 08/17/22 10:06 70 96 08/17/22 10:01 69 92 08/17/22 09:56 68 95 08/17/22 09:51 68 96 08/17/22 09:48 71 144/86 H Pain Intensity Bilateral Head: Pain Intensity: 8 Bilateral Abdomen: Pain Intensity: 7 Transfer of Care Handoff Completed per policy Notes Mental Status: alert / awake / arousable and participated in evaluation Patient Amnestic to Procedure: Yes Nausea / Vomiting: adequately controlled Pain: adequately controlled Airway Patency, RR, SpO2: stable & adequate BP & HR: stable & adequate Hydration State: stable & adequate Neuraxial Anesthesia: was administered and sensory block is resolving Anesthetic Complications: no major complications apparent and Pt Satisfied with anesthetic care
--- NOTE | 2022-08-18 10:20 | Operative Report (OR) ---
DATE OF SURGERY: 08/18/2022. PREOPERATIVE DIAGNOSES: 32-year-old G1, P0 at 37 weeks and 5 days of gestation, who was admitted on 08/15/2022 for induction of labor for preeclampsia with severe features. IV magnesium sulfate seizure prophylaxis. Failure to progress Arrest of dilatation in active phase of labor despite adequate contractions. POSTOPERATIVE DIAGNOSES: 32-year-old G1, P0 at 37 weeks and 5 days of gestation, who was admitted on 08/15/2022 for induction of labor for preeclampsia with severe features. IV magnesium sulfate seizure prophylaxis. Failure to progress Arrest of dilatation in active phase of labor despite adequate contractions. PROCEDURE: Primary low transverse with Pfannenstiel skin incision. SURGEON: Dionne Miner MD. CONCRETE PLACEMENT EQUIPMENT OPERATOR: Severiano Saldaña MD ESTIMATED BLOOD LOSS: 500 mL. DRAINS: Andujar catheter drained 100 mL of clear urine. ANESTHESIA: Labor epidural. ANESTHESIOLOGIST: Dr. Landin. COMPLICATIONS: None. FINDINGS: Baby was a viable male delivered at 08:16 a.m, in vertex presentation. weight was 3393 grams, Apgars were 8/9. Maternal findings: Normal uterus, fallopian tubes, and ovaries. DESCRIPTION OF PROCEDURE: The patient was taken to the operating room where epidural anesthesia was found to be adequate. She was placed in dorsal supine position with a leftward tilt. She was prepared and draped in the usual sterile fashion. A Pfannenstiel skin incision was made and carried through to the underlying layer of fascia with the Bovie. Fascia was incised in the midline and the incision was extended laterally with the help of Maloney scissors. Upper aspect of the fascial incision was grasped with 2 Amira clamps, elevated, and underlying rectus muscles were dissected off sharply with Maloney scissors and same thing was done on the lower aspect of the fascial incision. Rectus muscles were in the midline. Peritoneum was entered bluntly. Peritoneal incision was extended superiorly and inferiorly with good visualization of the bladder and then Williams abdominal retractor was placed into the abdomen and then it provided retraction during surgery. Vesicouterine peritoneum was identified, grasped with pickups, and entered sharply with Metzenbaum scissors. Bladder flap was created digitally and bladder blade was inserted. Lower uterine segment was incised in transverse fashion. Incision was extended laterally with the help of fingers. Membranes were ruptured and clear fluid was obtained. Baby's head was delivered without difficulty. Shoulders were delivered with minimal traction. Mouth and nose were suctioned. Cord was clamped x2 and cut at 1 minute delay. Baby was vigorously moving and crying at that point. Baby was handed to the waiting pediatric team with Dr. Hall. Placenta was delivered manually as intact and complete. Uterus was exteriorized and cleared of all clots and debris. Uterine incision was repaired with 0 Vicryl in a running fashion. Second imbricating layer was placed with another 0 Vicryl in a running locked fashion and excellent hemostasis was achieved. Uterus was returned to the abdomen. Pelvis was irrigated with warm normal saline and suctioned and there was oozing on the lowest side of the incision. It was controlled with [id number] stitches x2 and the pelvis was irrigated again with warm normal saline and suctioned and it was hemostatic. Parietal peritoneum was reapproximated with 3-0 Vicryl in a running fashion and the rectus muscles were also reapproximated with the same suture in a running fashion and it was hemostatic. Rectus fascia was closed with #1 Vicryl, starting from both corners meeting in the midline and the subcuticular fat tissue was brought together with 3-0 Vicryl in a running fashion. The skin was closed with alfredo, and the incision was covered with LYNDA dressing with suction. The patient tolerated the procedure well. Sponge, lap, needle count was correct x3. No complications happened. I and Dr. Saldaña was present during whole procedure. At the end of the procedure, the patient was cleaned, dried, and taken to the recovery room in stable condition. My assistant professor of anthropology was needed for retraction, hemostasis and aid during delivery of infant during surgery. Job ID: [id number] [facility]
[2022-08-18] MEDS: LABETALOL HCL 100 MG TAB PO SCH ×2 (11:38→20:42)
[2022-08-18] MEDS: OXYTOCIN 20 UNITS in LACTATED RINGER'S 1,000 ML IV SCH (12:03)
[2022-08-18] MEDS ORDERED: ARISTA ABSORBABLE HEMOSTAT 3GM TOP ONE (13:32)
[2022-08-18] MEDS ORDERED: Nursing to Pharmacy Communication SCH (13:45)
[2022-08-18] MEDS: SIMETHICONE 80 MG CHEW PO SCH ×3 (14:19→20:42)
[2022-08-18] MEDS: DOCUSATE SODIUM 100 MG CAP PO SCH (20:42)
[2022-08-18] MEDS: MAGNESIUM SULFATE / WTR 40 GM/1,000 ML BAG IV SCH (20:52)
[2022-08-19] MEDS: ceFAZolin 2000MG 2,000 MG/15 ML SYR IV SCH ×2 (00:08→22:54)
[2022-08-19] MEDS: CLINDAMYCIN/D5W 900 MG/50 ML BAG IV SCH ×2 (00:08→22:55)
[2022-08-19] MEDS: OXYTOCIN 20 UNITS in LACTATED RINGER'S 1,000 ML IV SCH (01:45)
[2022-08-19] MEDS ORDERED: ONDANSETRON INJ 2 MG/ML 2 ML VIAL IV PRN (02:36)
[2022-08-19] MEDS ORDERED: PROMETHAZINE HCL 25 MG in SODIUM CHLORIDE 0.9% 50 ML IV PRN (02:36)
[2022-08-19] MEDS ORDERED: diphenhydrAMINE Capsule 25 MG CAP PO PRN (02:36)
[2022-08-19] MEDS ORDERED: diphenhydrAMINE 50 MG/ML VIAL IV PRN (02:36)
[2022-08-19] MEDS ORDERED: MEPERIDINE HCL 50 MG/ML CARP IV PRN (02:36)
[2022-08-19 06:51] LABS: Basophils # (auto) 0.02 K/uL (0-0.2); Basophils % (auto) 0.2 %; Eosinophils # (auto) 0.06 K/uL (0-0.50); Eosinophils % (auto) 0.6 %; Hematocrit (blood only) 27.2 % (34.1-44.9); Hemoglobin 8.8 g/dl (12.0-16.0); Immature Granulocytes # (auto) 0.06 K/uL (0.00-0.02); Immature Granulocytes % (auto) 0.6 %; Lymphocytes # (auto) 1.35 K/uL (1.2-3.4); Lymphocytes % (auto) 12.7 %; Mean Corpuscular Hgb Conc 32.4 g/dL (32.0-36.0); Mean Corpuscular Volume 80.2 fL (80.0-100.0); Mean Platelet Volume 10.3 fL (9.4-12.3); Monocytes % (auto) 7.5 %; Neutrophils # (auto) 8.36 K/uL (1.4-6.5); Neutrophils % (auto) 78.4 %; Platelet Count 224 K/uL (130-400); RDW Coefficient of Variation 15.4 % (11.5-14.5); RDW Standard Deviation 44.4 fL (36.4-46.3); Red Blood Count 3.39 M/uL (3.93-5.22); White Blood Count 10.65 K/ul (4.8-10.8)
[2022-08-19 07:24] LABS: Alanine Aminotransferase 5 U/L (7-52); Albumin Level 2.6 gm/dl (3.4-5.0); Alkaline Phosphatase 153 U/L (34-104); Anion Gap 7 (3-11); Aspartate Aminotransferase 15 U/L (13-39); BUN Creatinine Ratio 12.8 (10-20); Bilirubin,Total 0.6 mg/dl (0.2-1.0); Blood Urea Nitrogen 6 mg/dl (6-23); Calcium 6.5 mg/dl (8.5-10.1); Carbon Dioxide 24 mmol/L (21-32); Chloride 100 mmol/L (98-107); Creatinine Clr Calc Pharmacy 221.6 ml/min; Est GFR (African American) > 150.0 ml/min; Est GFR (Non-African American) 131.6 ml/min; Globulin 2.6 gm/dl (2.5-4.0); Glucose 89 mg/dl (70-99(Fasting)); Potassium 3.8 mmol/L (3.5-5.1); Sodium 131 mmol/L (136-145); Total Protein 5.2 gm/dl (6.0-8.3)
[2022-08-19] MEDS: SIMETHICONE 80 MG CHEW PO SCH ×4 (08:07→20:42)
[2022-08-19] MEDS: oxyCODONE/ACETAMINOPHEN 5mg/325mg TAB PO PRN ×4 (08:16→20:42)
[2022-08-19] MEDS: DOCUSATE SODIUM 100 MG CAP PO SCH ×2 (08:17→20:42)
[2022-08-19] MEDS: PRENATAL VITAMIN 1 TAB PO SCH (08:17)
[2022-08-19] MEDS: FERROUS SULFATE 325 MG TAB PO SCH (08:17)
[2022-08-19] MEDS: LABETALOL HCL 100 MG TAB PO SCH ×2 (09:15→20:42)
--- NOTE | 2022-08-19 09:31 | Obstetrical Progress Note ---
Date of Service August 19, 2022 Assessment & Plan Admission and Anticipated Discharge Date Admission Date: August 15, 2022 Subjective Patient is seen and examined. She feels well, much better. Magnesium was stopped and she is getting ready to go to . Pain is under control with oral meds. Tolerating regular diet with out N&V Flatus + BM NEG Bleeding is minimal No NGUYEN/ Change in vision/fever/ chills/ CP/ SOB/ N&V/ Leg pain Plans to breast feed Vital Signs Temp Pulse Resp BP Pulse Ox 08/19/22 08:05 36.9 C 16 08/19/22 07:47 16 08/19/22 06:01 16 08/19/22 05:15 18 08/19/22 04:15 18 08/19/22 03:54 37.2 C 18 08/19/22 03:15 16 08/19/22 02:15 18 08/19/22 01:15 18 08/19/22 00:15 18 08/19/22 00:15 36.8 C 16 08/18/22 23:30 16 08/18/22 22:29 18 08/19/22 09:14 86 98 08/19/22 09:09 87 100 08/19/22 09:05 79 139/79 08/19/22 09:04 79 100 08/19/22 08:59 86 99 08/19/22 08:54 82 99 08/19/22 08:49 80 100 08/19/22 08:44 79 99 08/19/22 08:39 81 98 08/19/22 08:34 72 98 08/19/22 08:29 82 100 08/19/22 08:24 79 99 08/19/22 08:19 83 99 08/19/22 08:14 84 98 08/19/22 08:09 75 98 08/19/22 08:04 77 97 08/19/22 08:05 74 141/86 H 08/19/22 07:59 73 99 08/19/22 07:54 81 97 08/19/22 07:49 99 08/19/22 07:49 74 08/19/22 07:49 72 133/85 08/19/22 07:44 80 100 08/19/22 07:39 81 99 08/19/22 07:34 72 99 08/19/22 07:29 74 100 08/19/22 07:24 82 98 08/19/22 07:19 80 99 08/19/22 07:14 77 100 08/19/22 07:09 79 99 08/19/22 07:04 79 98 08/19/22 06:59 78 98 08/19/22 06:54 76 98 08/19/22 06:49 78 98 08/19/22 06:44 79 96 08/19/22 06:39 80 98 08/19/22 06:34 79 96 08/19/22 06:29 83 96 08/19/22 06:24 76 95 08/19/22 06:19 83 95 08/19/22 06:14 85 95 08/19/22 06:09 84 95 08/19/22 06:04 86 96 08/19/22 06:05 78 128/80 08/19/22 05:59 79 94 08/19/22 05:54 80 95 08/19/22 05:49 79 96 08/19/22 05:44 78 94 08/19/22 05:39 87 97 08/19/22 05:34 78 96 08/19/22 05:29 79 95 08/19/22 05:24 81 95 08/19/22 05:19 78 96 08/19/22 05:14 86 93 08/19/22 05:09 89 95 08/19/22 05:04 84 95 08/19/22 05:05 83 124/76 08/19/22 04:59 90 93 08/19/22 04:54 93 H 94 08/19/22 04:49 84 97 08/19/22 04:44 79 96 08/19/22 04:39 79 95 08/19/22 04:34 83 95 08/19/22 04:29 78 95 08/19/22 04:24 77 94 08/19/22 04:19 76 94 08/19/22 04:14 77 93 08/19/22 04:09 87 94 08/19/22 04:05 78 129/74 08/19/22 04:04 79 95 08/19/22 03:59 87 93 08/19/22 03:54 87 95 08/19/22 03:49 79 95 08/19/22 03:44 79 94 08/19/22 03:39 78 93 08/19/22 03:34 77 94 08/19/22 03:29 79 94 08/19/22 03:24 78 94 08/19/22 03:19 78 94 08/19/22 03:14 80 94 08/19/22 03:09 79 94 08/19/22 03:05 77 128/78 08/19/22 03:04 79 94 08/19/22 02:59 76 95 08/19/22 02:54 77 94 08/19/22 02:49 76 94 08/19/22 02:44 76 93 08/19/22 02:39 84 92 08/19/22 02:34 88 93 08/19/22 02:29 80 86 L 08/19/22 02:24 80 87 L 08/19/22 02:19 83 89 L 08/19/22 02:14 82 89 L 08/19/22 02:09 83 89 L 08/19/22 02:08 82 90 08/19/22 02:04 85 91 08/19/22 02:05 82 134/73 08/19/22 02:03 94 H 87 L 08/19/22 01:59 92 H 91 08/19/22 01:57 87 90 08/19/22 01:54 85 90 08/19/22 01:50 88 89 L 08/19/22 01:49 88 85 L 08/19/22 01:44 87 L 08/19/22 01:44 97 H 08/19/22 01:44 95 H 90 08/19/22 01:39 94 H 85 L 08/19/22 01:35 80 90 08/19/22 01:34 82 87 L 08/19/22 01:29 79 89 L 08/19/22 01:24 79 87 L 08/19/22 01:19 79 86 L 08/19/22 01:17 78 90 08/19/22 01:14 80 87 L 08/19/22 01:09 78 88 L 08/19/22 01:05 89 L 08/19/22 01:05 77 08/19/22 01:04 80 91 08/19/22 01:05 77 130/78 08/19/22 00:59 80 89 L 08/19/22 00:54 79 89 L 08/19/22 00:49 77 90 08/19/22 00:50 78 90 08/19/22 00:44 87 92 08/19/22 00:39 86 92 08/19/22 00:34 81 92 08/19/22 00:29 86 90 08/19/22 00:27 80 89 L 08/19/22 00:24 83 93 08/19/22 00:19 84 94 08/19/22 00:14 81 94 08/19/22 00:09 79 92 08/19/22 00:06 83 89 L 08/19/22 00:04 82 93 08/19/22 00:05 80 154/89 H 08/18/22 23:59 89 91 08/18/22 23:54 80 91 08/18/22 23:49 90 91 08/18/22 23:44 76 89 L 08/18/22 23:42 75 89 L 08/18/22 23:39 75 89 L 08/18/22 23:34 73 89 L 08/18/22 23:33 76 90 08/18/22 23:29 72 90 08/18/22 23:28 76 90 08/18/22 23:24 74 90 08/18/22 23:22 74 89 L 08/18/22 23:19 73 90 08/18/22 23:14 75 90 08/18/22 23:12 75 90 08/18/22 23:09 75 90 08/18/22 23:06 77 90 08/18/22 23:04 72 91 08/18/22 23:05 72 154/92 H 08/18/22 22:59 72 92 08/18/22 22:54 76 93 08/18/22 22:49 78 98 08/18/22 22:44 83 95 08/18/22 22:39 80 95 08/18/22 22:34 79 97 08/18/22 22:29 78 94 08/18/22 22:24 84 94 08/18/22 22:19 79 96 08/18/22 22:14 81 95 08/18/22 22:09 81 95 08/18/22 22:05 81 162/88 H 08/18/22 22:04 85 94 08/18/22 21:59 79 93 08/18/22 21:56 79 90 08/18/22 21:54 79 92 08/18/22 21:49 78 92 08/18/22 21:44 80 93 08/18/22 21:40 80 90 08/18/22 21:39 77 94 08/18/22 21:34 82 93 PE: General: Alert, orientedx3, NAD CVS: S1S2 RRR Lungs; CTAB Abd: soft, NT, ND, BS+, fundus firm, below Umbilicus Incision/ LYNDA dressing: Clean, dry, intact Perineum intact, Lochia rubra minimal Ext; NT, edema 1+/1+, on dorsum of feet, much better than befor AP: 32 yo s/p C Section, pod# 1, s/p IOL for preeclampsia with severe features , s/p IV magneisum VSS Afebrile doing well On Labetalol Continue routine postop care Encourage ambulation, PO intake All questions were answered Results & Data ([facility]) Vital Signs (Past 12 Hours) Vital Signs Temp Pulse Resp BP Pulse Ox 08/19/22 08:05 36.9 C 16 08/19/22 07:47 16 08/19/22 06:01 16 08/19/22 05:15 18 08/19/22 04:15 18 08/19/22 03:54 37.2 C 18 08/19/22 03:15 16 08/19/22 02:15 18 08/19/22 01:15 18 08/19/22 00:15 18 08/19/22 00:15 36.8 C 16 08/18/22 23:30 16 08/18/22 22:29 18 08/19/22 09:14 86 98 08/19/22 09:09 87 100 08/19/22 09:05 79 139/79 08/19/22 09:04 79 100 08/19/22 08:59 86 99 08/19/22 08:54 82 99 08/19/22 08:49 80 100 08/19/22 08:44 79 99 08/19/22 08:39 81 98 08/19/22 08:34 72 98 08/19/22 08:29 82 100 08/19/22 08:24 79 99 08/19/22 08:19 83 99 08/19/22 08:14 84 98 08/19/22 08:09 75 98 08/19/22 08:04 77 97 08/19/22 08:05 74 141/86 H 08/19/22 07:59 73 99 08/19/22 07:54 81 97 08/19/22 07:49 99 08/19/22 07:49 74 08/19/22 07:49 72 133/85 08/19/22 07:44 80 100 08/19/22 07:39 81 99 08/19/22 07:34 72 99 08/19/22 07:29 74 100 08/19/22 07:24 82 98 08/19/22 07:19 80 99 08/19/22 07:14 77 100 08/19/22 07:09 79 99 08/19/22 07:04 79 98 08/19/22 06:59 78 98 08/19/22 06:54 76 98 08/19/22 06:49 78 98 08/19/22 06:44 79 96 08/19/22 06:39 80 98 08/19/22 06:34 79 96 08/19/22 06:29 83 96 08/19/22 06:24 76 95 08/19/22 06:19 83 95 08/19/22 06:14 85 95 08/19/22 06:09 84 95 08/19/22 06:04 86 96 08/19/22 06:05 78 128/80 08/19/22 05:59 79 94 08/19/22 05:54 80 95 08/19/22 05:49 79 96 08/19/22 05:44 78 94 08/19/22 05:39 87 97 08/19/22 05:34 78 96 08/19/22 05:29 79 95 08/19/22 05:24 81 95 08/19/22 05:19 78 96 08/19/22 05:14 86 93 08/19/22 05:09 89 95 08/19/22 05:04 84 95 08/19/22 05:05 83 124/76 08/19/22 04:59 90 93 08/19/22 04:54 93 H 94 08/19/22 04:49 84 97 08/19/22 04:44 79 96 08/19/22 04:39 79 95 08/19/22 04:34 83 95 08/19/22 04:29 78 95 08/19/22 04:24 77 94 08/19/22 04:19 76 94 08/19/22 04:14 77 93 08/19/22 04:09 87 94 08/19/22 04:05 78 129/74 08/19/22 04:04 79 95 08/19/22 03:59 87 93 08/19/22 03:54 87 95 08/19/22 03:49 79 95 08/19/22 03:44 79 94 08/19/22 03:39 78 93 08/19/22 03:34 77 94 08/19/22 03:29 79 94 08/19/22 03:24 78 94 08/19/22 03:19 78 94 08/19/22 03:14 80 94 08/19/22 03:09 79 94 08/19/22 03:05 77 128/78 08/19/22 03:04 79 94 08/19/22 02:59 76 95 08/19/22 02:54 77 94 08/19/22 02:49 76 94 08/19/22 02:44 76 93 08/19/22 02:39 84 92 08/19/22 02:34 88 93 08/19/22 02:29 80 86 L 08/19/22 02:24 80 87 L 08/19/22 02:19 83 89 L 08/19/22 02:14 82 89 L 08/19/22 02:09 83 89 L 08/19/22 02:08 82 90 08/19/22 02:04 85 91 08/19/22 02:05 82 134/73 08/19/22 02:03 94 H 87 L 08/19/22 01:59 92 H 91 08/19/22 01:57 87 90 08/19/22 01:54 85 90 08/19/22 01:50 88 89 L 08/19/22 01:49 88 85 L 08/19/22 01:44 87 L 08/19/22 01:44 97 H 08/19/22 01:44 95 H 90 08/19/22 01:39 94 H 85 L 08/19/22 01:35 80 90 08/19/22 01:34 82 87 L 08/19/22 01:29 79 89 L 08/19/22 01:24 79 87 L 08/19/22 01:19 79 86 L 08/19/22 01:17 78 90 08/19/22 01:14 80 87 L 08/19/22 01:09 78 88 L 08/19/22 01:05 89 L 08/19/22 01:05 77 08/19/22 01:04 80 91 08/19/22 01:05 77 130/78 08/19/22 00:59 80 89 L 08/19/22 00:54 79 89 L 08/19/22 00:49 77 90 08/19/22 00:50 78 90 08/19/22 00:44 87 92 08/19/22 00:39 86 92 08/19/22 00:34 81 92 08/19/22 00:29 86 90 08/19/22 00:27 80 89 L 08/19/22 00:24 83 93 08/19/22 00:19 84 94 08/19/22 00:14 81 94 08/19/22 00:09 79 92 08/19/22 00:06 83 89 L 08/19/22 00:04 82 93 08/19/22 00:05 80 154/89 H 08/18/22 23:59 89 91 08/18/22 23:54 80 91 08/18/22 23:49 90 91 08/18/22 23:44 76 89 L 08/18/22 23:42 75 89 L 08/18/22 23:39 75 89 L 08/18/22 23:34 73 89 L 08/18/22 23:33 76 90 08/18/22 23:29 72 90 08/18/22 23:28 76 90 08/18/22 23:24 74 90 08/18/22 23:22 74 89 L 08/18/22 23:19 73 90 08/18/22 23:14 75 90 08/18/22 23:12 75 90 08/18/22 23:09 75 90 08/18/22 23:06 77 90 08/18/22 23:04 72 91 08/18/22 23:05 72 154/92 H 08/18/22 22:59 72 92 08/18/22 22:54 76 93 08/18/22 22:49 78 98 08/18/22 22:44 83 95 08/18/22 22:39 80 95 08/18/22 22:34 79 97 08/18/22 22:29 78 94 08/18/22 22:24 84 94 01/06/23 22:19 79 96 08/18/22 22:14 81 95 08/18/22 22:09 81 95 08/18/22 22:05 81 162/88 H 08/18/22 22:04 85 94 08/18/22 21:59 79 93 08/18/22 21:56 79 90 08/18/22 21:54 79 92 08/18/22 21:49 78 92 08/18/22 21:44 80 93 08/18/22 21:40 80 90 08/18/22 21:39 77 94 08/18/22 21:34 82 93 08/18/22 21:29 76 92
[2022-08-19] MEDS: MAGNESIUM SULFATE / WTR 40 GM/1,000 ML BAG IV SCH (11:30)
[2022-08-19] MEDS: LEVOTHYROXINE SODIUM 100 MCG TABLET PO SCH (11:30)
[2022-08-19] MEDS ORDERED: bisacodyL 5 MG TABEC PO SCH (20:00)
[2022-08-20] MEDS ORDERED: MoRPHine SULFATE 4 MG/ML 1 ML CARP\\VIAL IV STA (02:56)
[2022-08-20] MEDS: IBUPROFEN 600 MG TAB PO PRN ×3 (03:16→20:36)
[2022-08-20] MEDS ORDERED: bisacodyL 10 MG SUPP PR STA (03:19)
--- NOTE | 2022-08-20 03:33 | Obstetrical Progress Note ---
Date of Service August 20, 2022 Assessment & Plan Admission and Anticipated Discharge Date Admission Date: August 15, 2022 Subjective Patient is seen and examined. She complains of gas pain, started few hours ago. She has passed gas only once. and unable to pass more. Ambulating without dizziness Voiding without difficulty Tolerating regular diet with out N&V. Ate 3 meals yesterday. Flatus + BM neg Bleeding is minimal No NGUYEN/ Change in vision/fever/ chills/ CP/ SOB/ N&V/ Leg pain Bottle feeding without problems Vital Signs Temp Pulse Pulse Resp BP Pulse Ox O2 Del Method 08/20/22 03:00 98 Room Air 08/19/22 20:40 37.3 C 84 18 141/93 H 99 Room Air 08/19/22 20:40 Room Air 08/19/22 15:45 37.2 C 80 18 146/85 H Room Air Labs pending PE: General: Alert, orientedx3, NAD CVS: S1S2 RRR Lungs; CTAB Abd: soft, Distended, patient is holding upper abdomen with warm blankets, BS diminished, fundus firm, below Umbilicus Incision: Clean, dry, intact Perineum intact, Lochia rubra minimal Ext; NT, no edema Rectal exam with sphincter message is done after verbal consent is obtained. AP: 32 yo s/p C Section, pod# 2 VSS Afebrile , gas pain with distention, decreased bowel sounds Plan to start IVF with KCL in it, IV Reglan, PO Simethicone, Dulcolax supp Labs for CBC, CMP, LDH Encourage ambulation All questions were answered Results & Data ([facility]) Vital Signs (Past 12 Hours) Vital Signs Temp Pulse Pulse Resp BP Pulse Ox O2 Del Method 08/20/22 03:00 98 Room Air 08/19/22 20:40 37.3 C 84 18 141/93 H 99 Room Air 08/19/22 20:40 Room Air 08/19/22 15:45 37.2 C 80 18 146/85 H Room Air
[2022-08-20] MEDS: METOCLOPRAMIDE HCL INJ 5 MG/ML 2 ML VIAL IV SCH ×4 (03:35→21:09)
[2022-08-20 03:40] LABS: Basophils # (auto) 0.03 K/uL (0-0.2); Basophils % (auto) 0.3 %; Eosinophils # (auto) 0.05 K/uL (0-0.50); Eosinophils % (auto) 0.4 %; Hematocrit (blood only) 29.5 % (34.1-44.9); Hemoglobin 9.4 g/dl (12.0-16.0); Immature Granulocytes % (auto) 0.9 %; Lymphocytes # (auto) 1.35 K/uL (1.2-3.4); Lymphocytes % (auto) 11.9 %; Mean Corpuscular Hemoglobin 25.5 pg (25.0-34.0); Mean Corpuscular Hgb Conc 31.9 g/dL (32.0-36.0); Mean Corpuscular Volume 79.9 fL (80.0-100.0); Mean Platelet Volume 10.1 fL (9.4-12.3); Monocytes # (auto) 0.98 K/uL (0.24-0.82); Monocytes % (auto) 8.6 %; Neutrophils # (auto) 8.88 K/uL (1.4-6.5); Neutrophils % (auto) 77.9 %; Platelet Count 259 K/uL (130-400); RDW Coefficient of Variation 15.7 % (11.5-14.5); RDW Standard Deviation 45.1 fL (36.4-46.3); Red Blood Count 3.69 M/uL (3.93-5.22); White Blood Count 11.39 K/ul (4.8-10.8)
[2022-08-20] MEDS: NSS + 20MEQ KCL 20 MEQ/1,000 ML BAG IV SCH ×3 (03:53→16:45)
[2022-08-20 03:59] LABS: Alanine Aminotransferase 7 U/L (7-52); Alkaline Phosphatase 182 U/L (34-104); Anion Gap 8 (3-11); Aspartate Aminotransferase 16 U/L (13-39); Bilirubin,Total 0.4 mg/dl (0.2-1.0); Blood Urea Nitrogen 8 mg/dl (6-23); Calcium 7.8 mg/dl (8.5-10.1); Carbon Dioxide 24 mmol/L (21-32); Chloride 104 mmol/L (98-107); Creatinine Clr Calc Pharmacy 221.6 ml/min; Est GFR (African American) > 150.0 ml/min; Est GFR (Non-African American) 131.6 ml/min; Globulin 3.1 gm/dl (2.5-4.0); Glucose 105 mg/dl (70-99(Fasting)); Sodium 136 mmol/L (136-145); Total Protein 6.1 gm/dl (6.0-8.3)
[2022-08-20] MEDS: LEVOTHYROXINE SODIUM 100 MCG TABLET PO SCH (06:04)
[2022-08-20] MEDS: PRENATAL VITAMIN 1 TAB PO SCH (08:45)
[2022-08-20] MEDS: DOCUSATE SODIUM 100 MG CAP PO SCH ×2 (08:45→20:36)
[2022-08-20] MEDS: FERROUS SULFATE 325 MG TAB PO SCH (08:46)
[2022-08-20] MEDS: LABETALOL HCL 100 MG TAB PO SCH ×2 (08:46→20:36)
[2022-08-20] MEDS: SIMETHICONE 80 MG CHEW PO SCH ×4 (08:46→20:35)
[2022-08-20] MEDS ORDERED: bisacodyL 10 MG SUPP PR PRN (09:09)
--- NOTE | 2022-08-20 11:15 | Obstetrical Progress Note ---
Date of Service August 20, 2022 Assessment & Plan Admission and Anticipated Discharge Date Admission Date: August 15, 2022 Subjective Patient feels much better, passing gas and moved her bowels. Abd soft, NT, less distended Lab Results 08/15/22 08/15/22 08/15/22 Range/Units 18:05 18:05 18:05 WBC (4.8-10.8) K/ul RBC (3.93-5.22) M/uL Hgb (12.0-16.0) g/dl Hct (34.1-44.9) % MCV (80.0-100.0) fL MCH (25.0-34.0) pg MCHC (32.0-36.0) g/dL RDW Std Deviation (36.4-46.3) fL RDW Coeff of [place] (11.5-14.5) % Plt Count (130-400) K/uL MPV (9.4-12.3) fL Immature Gran % (Auto) % Neut % (Auto) % Lymph % (Auto) % [place] % (Auto) % Eos % (Auto) % Baso % (Auto) % Neut # (Auto) (1.4-6.5) K/uL Lymph # (Auto) (1.2-3.4) K/uL [place] # (Auto) (0.24-0.82) K/uL Eos # (Auto) (0-0.50) K/uL Baso # (Auto) (0-0.2) K/uL Immature Gran # (Auto) (0.00-0.02) K/uL Sodium (136-145) mmol/L Potassium (3.5-5.1) mmol/L Chloride (98-107) mmol/L Carbon Dioxide (21-32) mmol/L Anion Gap (3-11) BUN (6-23) mg/dl Creatinine (0.6-1.2) mg/dl Est Cr Clr Drug Dosing ml/min Est GFR ( Amer) ml/min Est GFR (Non-Af Amer) ml/min BUN/Creatinine Ratio (10-20) Glucose (70-99(Fasting)) mg/dl Uric Acid (2.6-7.2) mg/dl Calcium (8.5-10.1) mg/dl Magnesium (1.7-2.4) mg/dl Total Bilirubin (0.2-1.0) mg/dl Direct Bilirubin (0-0.2) mg/dl AST (13-39) U/L ALT (7-52) U/L Alkaline Phosphatase (34-104) U/L Lactate Dehydrogenase (86-244) U/L Total Protein (6.0-8.3) gm/dl Albumin (3.4-5.0) gm/dl Globulin (2.5-4.0) gm/dl Albumin/Globulin Ratio (0.9-2) Urine Color Yellow Urine Appearance Clear (Clear) Urine pH 5.5 (4.5-7.5) Ur Specific [place] 1.011 (1.000-1.030) Urine Protein Negative (Negative) Urine Glucose (UA) Negative (Negative) Urine Ketones Negative (Negative) Urine Blood Negative (Negative) Urine Nitrite Negative (Negative) Urine Bilirubin Negative (Negative) Urine Urobilinogen Negative (Negative) Ur Leukocyte Esterase Negative (Negative) Ur Random Creatinine 41.6 mg/dl U Random Total Protein 17.2 H (0-11.9) mg/dl Protein/Creatinin Ratio 0.4 H (0-0.2) SARS-CoV-2, RNA, NAAT NEGATIVE (NEGATIVE) Blood Type Blood Type Recheck Antibody Screen 08/15/22 08/15/22 08/15/22 Range/Units 19:03 19:03 19:03 WBC 10.36 (4.8-10.8) K/ul RBC 4.11 (3.93-5.22) M/uL Hgb 10.5 L (12.0-16.0) g/dl Hct 32.2 L (34.1-44.9) % MCV 78.3 L (80.0-100.0) fL MCH 25.5 (25.0-34.0) pg MCHC 32.6 (32.0-36.0) g/dL RDW Std Deviation 41.0 (36.4-46.3) fL RDW Coeff of [place]amaria 14.6 H (11.5-14.5) % Plt Count 255 (130-400) K/uL MPV 10.5 (9.4-12.3) fL Immature Gran % (Auto) % Neut % (Auto) % Lymph % (Auto) % [place] % (Auto) % Eos % (Auto) % Baso % (Auto) % Neut # (Auto) (1.4-6.5) K/uL Lymph # (Auto) (1.2-3.4) K/uL [place] # (Auto) (0.24-0.82) K/uL Eos # (Auto) (0-0.50) K/uL Baso # (Auto) (0-0.2) K/uL Immature Gran # (Auto) (0.00-0.02) K/uL Sodium 136 (136-145) mmol/L Potassium 3.7 (3.5-5.1) mmol/L Chloride 106 (98-107) mmol/L Carbon Dioxide 21 (21-32) mmol/L Anion Gap 9 (3-11) BUN 10 (6-23) mg/dl Creatinine 0.47 L (0.6-1.2) mg/dl Est Cr Clr Drug Dosing 221.6 ml/min Est GFR ( Amer) > 150.0 ml/min Est GFR (Non-Af Amer) 131.6 ml/min BUN/Creatinine Ratio 21.3 H (10-20) Glucose 106 H (70-99(Fasting)) mg/dl Uric Acid 4.9 (2.6-7.2) mg/dl Calcium 9.0 (8.5-10.1) mg/dl Magnesium (1.7-2.4) mg/dl Total Bilirubin 0.4 (0.2-1.0) mg/dl Direct Bilirubin 0.1 (0-0.2) mg/dl AST 12 L (13-39) U/L ALT 8 (7-52) U/L Alkaline Phosphatase 213 H (34-104) U/L Lactate Dehydrogenase (86-244) U/L Total Protein 6.0 (6.0-8.3) gm/dl Albumin 3.1 L (3.4-5.0) gm/dl Globulin 2.9 (2.5-4.0) gm/dl Albumin/Globulin Ratio 1.1 (0.9-2) Urine Color Urine Appearance (Clear) Urine pH (4.5-7.5) Ur Specific [place] (1.000-1.030) Urine Protein (Negative) Urine Glucose (UA) (Negative) Urine Ketones (Negative) Urine Blood (Negative) Urine Nitrite (Negative) Urine Bilirubin (Negative) Urine Urobilinogen (Negative) Ur Leukocyte Esterase (Negative) Ur Random Creatinine mg/dl U Random Total Protein (0-11.9) mg/dl Protein/Creatinin Ratio (0-0.2) SARS-CoV-2, RNA, NAAT (NEGATIVE) Blood Type O Positive Blood Type Recheck Antibody Screen NEGATIVE 08/15/22 08/16/22 08/16/22 Range/Units 19:03 08:22 08:22 WBC 9.42 (4.8-10.8) K/ul RBC 4.12 (3.93-5.22) M/uL Hgb 10.7 L (12.0-16.0) g/dl Hct 32.1 L (34.1-44.9) % MCV 77.9 L (80.0-100.0) fL MCH 26.0 (25.0-34.0) pg MCHC 33.3 (32.0-36.0) g/dL RDW Std Deviation 41.4 (36.4-46.3) fL RDW Coeff of [place]amaria 14.7 H (11.5-14.5) % Plt Count 255 (130-400) K/uL MPV 10.4 (9.4-12.3) fL Immature Gran % (Auto) % Neut % (Auto) % Lymph % (Auto) % [place] % (Auto) % Eos % (Auto) % Baso % (Auto) % Neut # (Auto) (1.4-6.5) K/uL Lymph # (Auto) (1.2-3.4) K/uL [place] # (Auto) (0.24-0.82) K/uL Eos # (Auto) (0-0.50) K/uL Baso # (Auto) (0-0.2) K/uL Immature Gran # (Auto) (0.00-0.02) K/uL Sodium 135 L (136-145) mmol/L Potassium 3.6 (3.5-5.1) mmol/L Chloride 105 (98-107) mmol/L Carbon Dioxide 21 (21-32) mmol/L Anion Gap 9 (3-11) BUN 6 (6-23) mg/dl Creatinine 0.45 L (0.6-1.2) mg/dl Est Cr Clr Drug Dosing 231.4 ml/min Est GFR ( Amer) > 150.0 ml/min Est GFR (Non-Af Amer) 133.5 ml/min BUN/Creatinine Ratio 13.3 (10-20) Glucose 104 H (70-99(Fasting)) mg/dl Uric Acid (2.6-7.2) mg/dl Calcium 7.6 L (8.5-10.1) mg/dl Magnesium (1.7-2.4) mg/dl Total Bilirubin 0.5 (0.2-1.0) mg/dl Direct Bilirubin (0-0.2) mg/dl AST 11 L (13-39) U/L ALT 9 (7-52) U/L Alkaline Phosphatase 209 H (34-104) U/L Lactate Dehydrogenase 148 (86-244) U/L Total Protein 6.1 (6.0-8.3) gm/dl Albumin 3.2 L (3.4-5.0) gm/dl Globulin 2.9 (2.5-4.0) gm/dl Albumin/Globulin Ratio 1.1 (0.9-2) Urine Color Urine Appearance (Clear) Urine pH (4.5-7.5) Ur Specific [place] (1.000-1.030) Urine Protein (Negative) Urine Glucose (UA) (Negative) Urine Ketones (Negative) Urine Blood (Negative) Urine Nitrite (Negative) Urine Bilirubin (Negative) Urine Urobilinogen (Negative) Ur Leukocyte Esterase (Negative) Ur Random Creatinine mg/dl U Random Total Protein (0-11.9) mg/dl Protein/Creatinin Ratio (0-0.2) SARS-CoV-2, RNA, NAAT (NEGATIVE) Blood Type Blood Type Recheck Antibody Screen 08/17/22 08/17/22 08/17/22 Range/Units 06:04 06:04 06:04 WBC 11.20 H (4.8-10.8) K/ul RBC 4.13 (3.93-5.22) M/uL Hgb 10.6 L (12.0-16.0) g/dl Hct 32.2 L (34.1-44.9) % MCV 78.0 L (80.0-100.0) fL MCH 25.7 (25.0-34.0) pg MCHC 32.9 (32.0-36.0) g/dL RDW Std Deviation 42.2 (36.4-46.3) fL RDW Coeff of [place]amaria 15.0 H (11.5-14.5) % Plt Count 250 (130-400) K/uL MPV 10.3 (9.4-12.3) fL Immature Gran % (Auto) % Neut % (Auto) % Lymph % (Auto) % [place] % (Auto) % Eos % (Auto) % Baso % (Auto) % Neut # (Auto) (1.4-6.5) K/uL Lymph # (Auto) (1.2-3.4) K/uL [place] # (Auto) (0.24-0.82) K/uL Eos # (Auto) (0-0.50) K/uL Baso # (Auto) (0-0.2) K/uL Immature Gran # (Auto) (0.00-0.02) K/uL Sodium 134 L (136-145) mmol/L Potassium 3.7 (3.5-5.1) mmol/L Chloride 104 (98-107) mmol/L Carbon Dioxide 21 (21-32) mmol/L Anion Gap 9 (3-11) BUN 5 L (6-23) mg/dl Creatinine 0.44 L (0.6-1.2) mg/dl Est Cr Clr Drug Dosing 236.7 ml/min Est GFR ( Amer) > 150.0 ml/min Est GFR (Non-Af Amer) 134.5 ml/min BUN/Creatinine Ratio 11.4 (10-20) Glucose 100 H (70-99(Fasting)) mg/dl Uric Acid (2.6-7.2) mg/dl Calcium 7.4 L (8.5-10.1) mg/dl Magnesium 4.6 H (1.7-2.4) mg/dl Total Bilirubin 0.6 (0.2-1.0) mg/dl Direct Bilirubin (0-0.2) mg/dl AST 11 L (13-39) U/L ALT 8 (7-52) U/L Alkaline Phosphatase 205 H (34-104) U/L Lactate Dehydrogenase (86-244) U/L Total Protein 5.9 L (6.0-8.3) gm/dl Albumin 3.0 L (3.4-5.0) gm/dl Globulin 2.9 (2.5-4.0) gm/dl Albumin/Globulin Ratio 1.0 (0.9-2) Urine Color Urine Appearance (Clear) Urine pH (4.5-7.5) Ur Specific [place] (1.000-1.030) Urine Protein (Negative) Urine Glucose (UA) (Negative) Urine Ketones (Negative) Urine Blood (Negative) Urine Nitrite (Negative) Urine Bilirubin (Negative) Urine Urobilinogen (Negative) Ur Leukocyte Esterase (Negative) Ur Random Creatinine mg/dl U Random Total Protein (0-11.9) mg/dl Protein/Creatinin Ratio (0-0.2) SARS-CoV-2, RNA, NAAT (NEGATIVE) Blood Type Blood Type Recheck Antibody Screen 08/18/22 08/18/22 08/18/22 Range/Units 00:12 06:12 06:12 WBC 14.67 H (4.8-10.8) K/ul RBC 4.06 (3.93-5.22) M/uL Hgb 10.3 L (12.0-16.0) g/dl Hct 32.3 L (34.1-44.9) % MCV 79.6 L (80.0-100.0) fL MCH 25.4 (25.0-34.0) pg MCHC 31.9 L (32.0-36.0) g/dL RDW Std Deviation 43.9 (36.4-46.3) fL RDW Coeff of [place]amaria 15.3 H (11.5-14.5) % Plt Count 257 (130-400) K/uL MPV 10.2 (9.4-12.3) fL Immature Gran % (Auto) 0.6 % Neut % (Auto) 81.5 % Lymph % (Auto) 10.4 % [place] % (Auto) 7.2 % Eos % (Auto) 0.1 % Baso % (Auto) 0.2 % Neut # (Auto) 11.95 H (1.4-6.5) K/uL Lymph # (Auto) 1.53 (1.2-3.4) K/uL [place] # (Auto) 1.05 H (0.24-0.82) K/uL Eos # (Auto) 0.02 (0-0.50) K/uL Baso # (Auto) 0.03 (0-0.2) K/uL Immature Gran # (Auto) 0.09 H (0.00-0.02) K/uL Sodium 132 L (136-145) mmol/L Potassium 3.8 (3.5-5.1) mmol/L Chloride 102 (98-107) mmol/L Carbon Dioxide 21 (21-32) mmol/L Anion Gap 9 (3-11) BUN 6 (6-23) mg/dl Creatinine 0.50 L (0.6-1.2) mg/dl Est Cr Clr Drug Dosing 208.3 ml/min Est GFR ( Amer) 149.5 ml/min Est GFR (Non-Af Amer) 129.0 ml/min BUN/Creatinine Ratio 12.0 (10-20) Glucose 102 H (70-99(Fasting)) mg/dl Uric Acid (2.6-7.2) mg/dl Calcium 7.4 L (8.5-10.1) mg/dl Magnesium 4.6 H (1.7-2.4) mg/dl Total Bilirubin 0.8 (0.2-1.0) mg/dl Direct Bilirubin (0-0.2) mg/dl AST 11 L (13-39) U/L ALT 7 (7-52) U/L Alkaline Phosphatase 210 H (34-104) U/L Lactate Dehydrogenase (86-244) U/L Total Protein 6.1 (6.0-8.3) gm/dl Albumin 3.0 L (3.4-5.0) gm/dl Globulin 3.1 (2.5-4.0) gm/dl Albumin/Globulin Ratio 1.0 (0.9-2) Urine Color Urine Appearance (Clear) Urine pH (4.5-7.5) Ur Specific [place] (1.000-1.030) Urine Protein (Negative) Urine Glucose (UA) (Negative) Urine Ketones (Negative) Urine Blood (Negative) Urine Nitrite (Negative) Urine Bilirubin (Negative) Urine Urobilinogen (Negative) Ur Leukocyte Esterase (Negative) Ur Random Creatinine mg/dl U Random Total Protein (0-11.9) mg/dl Protein/Creatinin Ratio (0-0.2) SARS-CoV-2, RNA, NAAT (NEGATIVE) Blood Type Blood Type Recheck Antibody Screen 08/18/22 08/19/22 08/19/22 Range/Units 06:12 06:30 06:30 WBC 10.65 (4.8-10.8) K/ul RBC 3.39 L (3.93-5.22) M/uL Hgb 8.8 L (12.0-16.0) g/dl Hct 27.2 L (34.1-44.9) % MCV 80.2 (80.0-100.0) fL MCH 26.0 (25.0-34.0) pg MCHC 32.4 (32.0-36.0) g/dL RDW Std Deviation 44.4 (36.4-46.3) fL RDW Coeff of [place] 15.4 H (11.5-14.5) % Plt Count 224 (130-400) K/uL MPV 10.3 (9.4-12.3) fL Immature Gran % (Auto) 0.6 % Neut % (Auto) 78.4 % Lymph % (Auto) 12.7 % [place] % (Auto) 7.5 % Eos % (Auto) 0.6 % Baso % (Auto) 0.2 % Neut # (Auto) 8.36 H (1.4-6.5) K/uL Lymph # (Auto) 1.35 (1.2-3.4) K/uL [place] # (Auto) 0.80 (0.24-0.82) K/uL Eos # (Auto) 0.06 (0-0.50) K/uL Baso # (Auto) 0.02 (0-0.2) K/uL Immature Gran # (Auto) 0.06 H (0.00-0.02) K/uL Sodium 131 L (136-145) mmol/L Potassium 3.8 (3.5-5.1) mmol/L Chloride 100 (98-107) mmol/L Carbon Dioxide 24 (21-32) mmol/L Anion Gap 7 (3-11) BUN 6 (6-23) mg/dl Creatinine 0.47 L (0.6-1.2) mg/dl Est Cr Clr Drug Dosing 221.6 ml/min Est GFR ( Amer) > 150.0 ml/min Est GFR (Non-Af Amer) 131.6 ml/min BUN/Creatinine Ratio 12.8 (10-20) Glucose 89 (70-99(Fasting)) mg/dl Uric Acid (2.6-7.2) mg/dl Calcium 6.5 L (8.5-10.1) mg/dl Magnesium (1.7-2.4) mg/dl Total Bilirubin 0.6 (0.2-1.0) mg/dl Direct Bilirubin (0-0.2) mg/dl AST 15 (13-39) U/L ALT 5 L (7-52) U/L Alkaline Phosphatase 153 H (34-104) U/L Lactate Dehydrogenase (86-244) U/L Total Protein 5.2 L (6.0-8.3) gm/dl Albumin 2.6 L (3.4-5.0) gm/dl Globulin 2.6 (2.5-4.0) gm/dl Albumin/Globulin Ratio 1.0 (0.9-2) Urine Color Urine Appearance (Clear) Urine pH (4.5-7.5) Ur Specific [place] (1.000-1.030) Urine Protein (Negative) Urine Glucose (UA) (Negative) Urine Ketones (Negative) Urine Blood (Negative) Urine Nitrite (Negative) Urine Bilirubin (Negative) Urine Urobilinogen (Negative) Ur Leukocyte Esterase (Negative) Ur Random Creatinine mg/dl U Random Total Protein (0-11.9) mg/dl Protein/Creatinin Ratio (0-0.2) SARS-CoV-2, RNA, NAAT (NEGATIVE) Blood Type Blood Type Recheck O Positive Antibody Screen 08/20/22 08/20/22 08/20/22 Range/Units 03:30 03:30 03:30 WBC 11.39 H (4.8-10.8) K/ul RBC 3.69 L (3.93-5.22) M/uL Hgb 9.4 L (12.0-16.0) g/dl Hct 29.5 L (34.1-44.9) % MCV 79.9 L (80.0-100.0) fL MCH 25.5 (25.0-34.0) pg MCHC 31.9 L (32.0-36.0) g/dL RDW Std Deviation 45.1 (36.4-46.3) fL RDW Coeff of [place] 15.7 H (11.5-14.5) % Plt Count 259 (130-400) K/uL MPV 10.1 (9.4-12.3) fL Immature Gran % (Auto) 0.9 % Neut % (Auto) 77.9 % Lymph % (Auto) 11.9 % [place] % (Auto) 8.6 % Eos % (Auto) 0.4 % Baso % (Auto) 0.3 % Neut # (Auto) 8.88 H (1.4-6.5) K/uL Lymph # (Auto) 1.35 (1.2-3.4) K/uL [place] # (Auto) 0.98 H (0.24-0.82) K/uL Eos # (Auto) 0.05 (0-0.50) K/uL Baso # (Auto) 0.03 (0-0.2) K/uL Immature Gran # (Auto) 0.10 H (0.00-0.02) K/uL Sodium 136 (136-145) mmol/L Potassium 4.0 (3.5-5.1) mmol/L Chloride 104 (98-107) mmol/L Carbon Dioxide 24 (21-32) mmol/L Anion Gap 8 (3-11) BUN 8 (6-23) mg/dl Creatinine 0.47 L (0.6-1.2) mg/dl Est Cr Clr Drug Dosing 221.6 ml/min Est GFR ( Amer) > 150.0 ml/min Est GFR (Non-Af Amer) 131.6 ml/min BUN/Creatinine Ratio 17.0 (10-20) Glucose 105 H (70-99(Fasting)) mg/dl Uric Acid (2.6-7.2) mg/dl Calcium 7.8 L (8.5-10.1) mg/dl Magnesium (1.7-2.4) mg/dl Total Bilirubin 0.4 (0.2-1.0) mg/dl Direct Bilirubin (0-0.2) mg/dl AST 16 (13-39) U/L ALT 7 (7-52) U/L Alkaline Phosphatase 182 H (34-104) U/L Lactate Dehydrogenase 229 (86-244) U/L Total Protein 6.1 (6.0-8.3) gm/dl Albumin 3.0 L (3.4-5.0) gm/dl Globulin 3.1 (2.5-4.0) gm/dl Albumin/Globulin Ratio 1.0 (0.9-2) Urine Color Urine Appearance (Clear) Urine pH (4.5-7.5) Ur Specific [place] (1.000-1.030) Urine Protein (Negative) Urine Glucose (UA) (Negative) Urine Ketones (Negative) Urine Blood (Negative) Urine Nitrite (Negative) Urine Bilirubin (Negative) Urine Urobilinogen (Negative) Ur Leukocyte Esterase (Negative) Ur Random Creatinine mg/dl U Random Total Protein (0-11.9) mg/dl Protein/Creatinin Ratio (0-0.2) SARS-CoV-2, RNA, NAAT (NEGATIVE) Blood Type Blood Type Recheck Antibody Screen Continue to monitor closely D/C home tomorrow Results & Data ([facility]) Vital Signs (Past 12 Hours) Vital Signs Temp Pulse Pulse Resp BP Pulse Ox O2 Del Method 08/20/22 08:45 37 C 87 20 151/91 H 08/20/22 06:06 36.9 C 78 20 147/96 H 96 Room Air 08/20/22 03:00 98 Room Air
[2022-08-20] MEDS: oxyCODONE/ACETAMINOPHEN 5mg/325mg TAB PO PRN ×2 (15:42→20:35)
[2022-08-21] MEDS: oxyCODONE/ACETAMINOPHEN 5mg/325mg TAB PO PRN ×4 (01:07→13:28)
[2022-08-21] MEDS: IBUPROFEN 600 MG TAB PO PRN ×4 (01:08→13:28)
[2022-08-21] MEDS ORDERED: LABETALOL HCL 100 MG TAB PO ONE (02:08)
[2022-08-21] MEDS: METOCLOPRAMIDE HCL INJ 5 MG/ML 2 ML VIAL IV SCH ×3 (03:46→16:39)
[2022-08-21] MEDS: LEVOTHYROXINE SODIUM 100 MCG TABLET PO SCH (06:22)
[2022-08-21] MEDS: SIMETHICONE 80 MG CHEW PO SCH ×2 (08:18→13:28)
[2022-08-21] MEDS: FERROUS SULFATE 325 MG TAB PO SCH (08:18)
[2022-08-21] MEDS: DOCUSATE SODIUM 100 MG CAP PO SCH (08:18)
[2022-08-21] MEDS: PRENATAL VITAMIN 1 TAB PO SCH (08:18)
[2022-08-21] MEDS ORDERED: LABETALOL HCL 200 MG TAB PO SCH (09:00)
--- NOTE | 2022-08-21 11:13 | Obstetrical Progress Note ---
Date of Service August 21, 2022 Assessment & Plan (1) delivery delivered: POD #3 c/sec for Preeclampsia Pt doing well no complaints On labetalol 200mg d/c home with instructions Subjective Ambulation: ambulating normally Voiding: no voiding problems Passing Gas:: Yes Diet Tolerance:: clear liquids Lochia:: Small Feeding Type:: breast feeding Review of Systems All systems reviewed & are unremarkable except as noted in HPI & below Physical Exam Constitutional WD/WN, vitals as above well developed and well nourished Eyes PERRL, conjunctivae normal, anicteric sclerae ENMT external ear and nose normal, oropharynx normal Neck trachea midline, no thyromegaly Respiratory normal respiratory effort, lungs clear to auscultation Cardiovascular RRR, no murmur, no edema Chest (Breasts) normal inspection/palpation of breasts Gastrointestinal (Abdomen) normal bowel sounds, soft, nontender, no hepatosplenomegaly Musculoskeletal no cyanosis or clubbing, extremities motor strength 5/5 Skin no rashes, warm and dry + incision (Clean,dry and intact) Neurologic patellar DTR's 2+ bilat, sensation intact Psychiatric A+Ox3, euthymic affect Genitourinary normal external appearance Lymphatic no cervical or axillary lymphadenopathy Results & Data ([facility]) Vital Signs (Past 12 Hours) Vital Signs Temp Pulse Resp BP BP Pulse Ox O2 Del Method 08/21/22 07:25 36.9 C 87 18 145/92 H 97 Room Air 08/21/22 04:41 36.7 C 95 H 20 149/87 H 96 Room Air 08/21/22 01:40 150/96 H 150/90 H 08/21/22 00:30 37.0 C 86 20 158/94 H 164/99 H Room Air
--- NOTE | 2022-08-26 02:36 | Discharge Summary (DS) ---
DATE OF ADMISSION: 08/15/2022. DATE OF DISCHARGE: 08/21/2022. DETAILS OF ADMISSION: The patient is a 32-year-old G1, P0 at 37 weeks and 3 days of gestation, who was sent from office for induction of labor for gestational hypertension, superimposed preeclampsia with elevated blood pressures in severe range. She was admitted on 08/15/2022 for induction of labor and then started on magnesium sulfate for seizure prophylaxis. On first day, she has received Cervidil for cervical ripening and then her contraction has not started. Next day, she had received 5 doses of p.o. Cytotec and has received IV labetalol for elevated blood pressures. IV magnesium has continued. Then when I got sign out from Dr. Hines. I reviewed her records. She was on IV oxytocin, started in that morning. It was at 8 milliunits per minute. She denied any symptoms of headache, change in her vision, nausea, vomiting, epigastric or right upper quadrant pain. Her cervix was 1-2 cm thick, posterior and high and unfavorable. I recommended Andujar balloon for mechanical dilatation together with Pitocin. She agreed. Andujar balloon was inserted with speculum and inflated with 40 mL of sterile water. It was applied to upper thigh gentle traction. She has received Stadol for pain and in the afternoon, the Andujar bulb came out. Her cervix became 5 cm, but still thick and high. Artificial rupture of membrane was done with myself. Abundant clear fluid was obtained. Oxytocin was increased. Despite adequate contractions, she has not changed her cervix all day and night and she was started on p.o. labetalol for high blood pressure. In the evening, after adequate contractions were confirmed with IUPC and no change was noted over hours, I recommended her . She declined and she wanted Pitocin rest and then start and try again for vaginal . We stopped Pitocin for about an hour and started again from the beginning and it was increased to 20 milliunits per minute again. In the morning of 08/16 when I checked her, she had not changed of cervix . The head was still high and in a cone shape. FHR variability was decreased. Then she agreed for due to arrest of dilatation in active phase. She was taken to the OR by myself and assited by Dr. Saldaña, we performed primary low transverse and delivered a viable male infant at 08:16 a.m. No complications. See dictated operative note for details. On postoperative period, the patient was doing well, vital signs stable, afebrile. Urine output was adequate. She was taken off from magnesium after 24 hours and then the Andujar catheter was removed. She was moved to a regular floor. On postoperative day #2 in the morning, the patient was complaining of gas pain and upper abdominal pain under her ribs. She was distended and was not able to pass gas. She was started on IV fluids with potassium chloride and Reglan as well as I performed a rectal massage and she started passing gas and felt better in the morning and she ambulated, tolerated a regular diet and kept passing gas. Postoperative day #3, the patient was doing well, vital signs stable, afebrile and blood pressures were under control with 200 labetalol b.i.d. Her incision was clean, dry and intact. Her abdomen was soft, nondistended. Bleeding was minimal and her postoperative H and H was stable at 9.4/29.5 and her labs including platelets and LFTs were within normal limits. So, she was discharged on postoperative day #3. Discharge instructions were given. Prescriptions were written for pain. She is to be seen in the office in a week for incision check. Job ID: [id number] [facility]ENTERZah[facility]
--- NOTE | 2022-09-19 08:25 | Coding Query ---
CODING QUERY To promote full compliance with coding requirements relating to patient care, provider participation is requested in all cases of ramp lead uncertainty. Please assist us with the question(s) below: Coding Question(s): Gestational hypertension and pre-existing hypertension are both documented. Please clarify below Physician's Response(s): Gestational HTN: pre-existing HTN: Both gestational HTN and pre-existing HTN: Other: Please Specify: Gestational HTN with superimposed preeclampsia Thank you Sigrid Hernandez Principal Diagnosis: "that condition established after study, to be chiefly responsible for occasioning the admission of the patient to the hospital for care." Co-Existing Principal Diagnosis: "when two or more diagnoses equally meet the criteria for principal diagnosis as determined by the circumstances of admission, diagnostic work up, and/or therapy provided, and the Alphabetic Index, Tabular List, or another coding guideline does not provide sequencing direction, any one of the diagnoses may be sequenced first." "When the physician has documented what appears to be a current diagnosis in the body of the record, but has not included the diagnosis in the final diagnostic statement, the physician should be asked whether the diagnosis should be added." (Source [facility]oding [facility] 2 QTR90. p3-4) [place]ACH[place]
== END 2022-08-21 16:39 | disposition home or self-care (01) | DRG 788 ==
LOC: 4S1 17:22 → 4E2 08-17 10:54 → 4S1 08-17 10:59 → 4E2 08-19 10:49

== ENCOUNTER 2024-07-18 05:39 | Inpatient (IN) ==
--- NOTE | 2024-07-08 11:01 | Anesthesiology Consultation ---
Date of Service July 08, 2024 Assessment & Plan (1) Encounter for pre-operative examination: Infectious disease screening: Per assessment on 07/08/24- No known recent infectious disease contacts or current infectious disease symptoms. Chart Review Chart Review: entry examiner initiated History Surgery Operation Date: 07/18/24 07:30 Proposed Procedures p Section (Delivery of Baby Through Abdominal Incision) - Valerie Francis MD, FACOG Height/Weight Height: 5 ft 5 in Weight: 117.027 kg Allergies Allergy/AdvReac Type Severity Reaction Status Date / Time No Known Allergies Allergy Unknown Unverified 07/08/24 10:28 Medications Home Medications Medication Instructions Recorded Confirmed Last Taken cetirizine 10 mg capsule (Zyrtec) 10 mg PO DAILY PRN allergies 08/15/22 07/08/24 08/15/22 0600 aspirin 81 mg tablet,delayed 81 mg PO DAILY 01/29/24 07/08/24 Unknown release (Adult Low Dose Aspirin) labetalol 200 mg tablet 200 mg PO BID #60 tabs 04/21/24 07/08/24 Unknown levothyroxine 75 mcg tablet 75 mcg PO QAM 07/08/24 07/08/24 Unknown [id number] 1 mg 1 tab PO DAILY 07/08/24 07/08/24 Unknown tablet Past Medical History Medical History (Updated 07/08/24 @ 11:05 by Bernadine Alcantara) ADHD (attention deficit hyperactivity disorder) Allergic rhinitis GERD (gastroesophageal reflux disease) Gestational diabetes no meds Gestational hypertension History of pre-eclampsia with previous Hypertension Per records Hypothyroidism Mild ascending aorta dilatation Reported on echo 11/2022 Obesity Polyhydramnios affecting in third trimester Psoriasis Past Family History Family History Grandmother (Maternal) Breast cancer Great grandmother Grandfather (Maternal) Pancreatic cancer Denies family history of Ovarian cancer Colorectal cancer Past Surgical History Surgical History (Updated 07/08/24 @ 11:01 by Bernadine Alcantara) H/O foot surgery left foot History of tonsillectomy and adenoidectomy S/P section [place] teeth removed Social History Smoking Status: Current some day smoker Smoking cigarettes per day: Vapes "a couple times per day"- actively trying to reduce use/quit Do You Dip or Chew Tobacco: No Hx Alcohol Use: No Hx Substance Use: No substance use type: does not use Testing Echocardiogram Date: 11/24/22 LVEF 60-64%. LV wall motion is normal. Mild LAR. No significant valvular disease. Aortic root is normal sized. Mildly enlarged proximal ascending thoracic aorta. No evidence of pulmonary HTN.
--- NOTE | 2024-07-17 13:13 | History & Physical Report ---
Date of Service July 17, 2024 Assessment & Plan (1) 38 weeks gestation of : (2) Chronic hypertension during : (3) Polyhydramnios: (4) Obesity affecting , antepartum: (5) History of delivery, currently : Plan Will admit on 07/18 for planned repeat c/s delivery. Plan labs, iv, abx octor, would like to see bedside glucose value and pt aware. Consent reviewed and signed. Preop, postop instructions and course reviewed. History of Present Illness Chief Complaint: planned repeat c/s. Primary Care Provider: NO PCP 34yo at 38+wks for planned repeat c/s with history of prior c/s and chronic hypertension in . She notes taking her labetalol. Never did gdm testing and spilling glucose in urine today. Has polyhydramnios on u/s, including dvp today, mild. Baby LGA and so we suspect untreated gdm. +FM. No rom or vb. No ctx PNC c/b 1. CHTN, on meds 2. Polyhydramnios 3. Obesity. 4. Likely GDM, refused testing, LGA fetus. 5. Vaping, has been enc to quit 6. Prior complicated by Preeclampsia, taking baby asa 7. Hypothyroid PNL rh pos, ri, gbs neg OBH: c/s, preeclampsia, failed induction GYNH: nl paps, no stds Allergies Allergy/AdvReac Type Severity Reaction Status Date / Time No Known Allergies Allergy Unknown Unverified 07/17/24 08:53 Home Medications Medication Instructions Recorded Confirmed Type cetirizine 10 mg capsule (Zyrtec) 10 mg PO DAILY PRN allergies 08/15/22 07/17/24 History aspirin 81 mg tablet,delayed 81 mg PO DAILY 01/29/24 07/17/24 History release (Adult Low Dose Aspirin) labetalol 200 mg tablet 200 mg PO BID #60 tabs 04/21/24 07/17/24 Rx levothyroxine 75 mcg tablet 75 mcg PO QAM 07/08/24 07/17/24 History zbrecevo-wab-Mw-FA 1 mg 1 tab PO DAILY 07/08/24 07/17/24 History tablet Patient History Medical History (Updated 07/17/24 @ 13:12 by Valerie Francis MD, FACOG) Gestational diabetes no meds History of pre-eclampsia with previous Hypothyroidism Mild ascending aorta dilatation Reported on echo 11/2022 Polyhydramnios affecting in third trimester GERD (gastroesophageal reflux disease) Gestational hypertension Allergic rhinitis Obesity ADHD (attention deficit hyperactivity disorder) Psoriasis Surgical History (Updated 07/17/24 @ 13:12 by Valerie Francis MD, FACOG) S/P section History of tonsillectomy and adenoidectomy H/O foot surgery left foot Gerber teeth removed Family History Grandmother (Maternal) Breast cancer Great grandmother Grandfather (Maternal) Pancreatic cancer Denies family history of Ovarian cancer Colorectal cancer Social History Smoking Status: Current some day smoker Tobacco Type: E-cigarettes / Vaping Age Started Using Tobacco: 16; Cigarettes Per Day: Vapes "a couple times per day"- actively trying to reduce use/quit; Second Hand Exposure: No; Do You Dip or Chew Tobacco: No; Hx Alcohol Use: No Hx Substance Use: No Preferred Language: Yoruba Visual Impairment: No Limitations Hearing Ability: Normal [employer] Processing [employer] Project Planner Required: No Beliefs That Will Affect Care: None marital status: Single marital status details: Gilles Fitzgerald (33) [phone] Current Living Situation: Family and Significant Other Current Living Situation Comment: Lives with FOB and child, 1 dog current occupational status: employed current occupation: [employer] Feels Safe at Home: Yes Assistive Devices: None Review of Systems as per Subjective / HPI Physical Exam Constitutional: WD/WN, vitals as above Respiratory: normal respiratory effort, lungs clear to auscultation Cardiovascular: Rate/Rhythm: regular rate and regular rhythm Gastrointestinal (Abdomen): soft gravid nt +fhts Musculoskeletal: no edema nontender calves Neurologic: grossly normal Psychiatric: A+Ox3, euthymic affect Coding Level of Care Code None Diagnoses 38 weeks gestation of Z3A.38 Chronic hypertension during O10.919 Polyhydramnios O40.9XX0 Obesity affecting , antepartum O99.210 History of delivery, currently O34.219
[2024-07-18 06:19] LABS: Basophils # (auto) 0.01 K/uL (0.00-0.20); Basophils % (auto) 0.1 %; Eosinophils # (auto) 0.07 K/uL (0.00-0.50); Eosinophils % (auto) 0.9 %; Hematocrit (blood only) 36.1 % (37.0-47.0); Immature Granulocytes # (auto) 0.03 K/uL (0.01-0.20); Immature Granulocytes % (auto) 0.4 %; Lymphocytes # (auto) 1.12 K/uL (1.20-3.40); Lymphocytes % (auto) 13.9 %; Mean Corpuscular Hemoglobin 28.2 pg (25.0-34.0); Mean Corpuscular Hgb Conc 33.2 g/dL (32.0-36.0); Mean Corpuscular Volume 84.9 fL (80.0-100.0); Mean Platelet Volume 9.8 fL (9.4-12.4); Monocytes # (auto) 0.86 K/uL (0.11-0.59); Monocytes % (auto) 10.7 %; Neutrophils # (auto) 5.94 K/uL (1.40-6.50); Platelet Count 244 K/uL (130-400); RDW Coefficient of Variation 14.3 % (11.5-14.5); RDW Standard Deviation 43.7 fL (36.4-46.3); Red Blood Count 4.25 M/uL (4.20-5.40); White Blood Count 8.03 K/ul (4.8-10.8)
[2024-07-18] MEDS ORDERED: SODIUM CHLORIDE 0.9% 100 ML IV PRN (06:34)
[2024-07-18] MEDS ORDERED: SODIUM CHLORIDE 0.9% 50 ML IV PRN (06:34)
[2024-07-18] MEDS: ACETAMINOPHEN 500 MG TAB PO SCH (06:37)
[2024-07-18] MEDS: SODIUM CHLORIDE 0.9% 1,000 ML IV SCH (06:38)
[2024-07-18] MEDS ORDERED: SODIUM CHLORIDE 0.9% 1,000 ML IV SCH (06:45)
[2024-07-18] MEDS: CITRIC ACID/SODIUM CITRATE 15 ML UDC PO SCH (07:05)
[2024-07-18] MEDS: ceFAZolin 3000MG 3,000 MG/72.5 ML BAG IV SCH (07:21)
--- NOTE | 2024-07-18 07:24 | History & Physical Bridge Note ---
Date of Service July 18, 2024 History & Physical Bridge Note I have examined the patient, reviewed the History & Physical and in the interval since the performance of the History & Physical I have noted the following changes of clinical significance: no changes noted. bsg this am 116
[2024-07-18] MEDS ORDERED: MoRPHine SULFATE PF 1 MG/ML 10 ML AMP/VIAL ONE (07:42)
[2024-07-18] MEDS ORDERED: PHENYLEPHRINE HCL 25 MG/250 ML NSS IV ONE (07:42)
[2024-07-18] MEDS ORDERED: PROMETHAZINE 12.5 MG/50.5 ML BAG IV PRN (08:42)
[2024-07-18] MEDS ORDERED: CALCIUM CARBONATE 500 MG CHEWABLE TAB PO PRN (08:42)
[2024-07-18] MEDS ORDERED: BENZOCAINE 20% SPRY 85 APPLN/85 GM CAN EXT PRN (08:42)
[2024-07-18] MEDS ORDERED: diphenhydrAMINE Capsule 25 MG CAP PO PRN (08:42)
[2024-07-18] MEDS ORDERED: oxyCODONE HCL IR 5 MG TAB (IMMEDIATE RELEASE) PO PRN ×2 (08:42→09:19)
[2024-07-18] MEDS ORDERED: HYDROCORTISONE ACETATE 25 MG SUPP PR PRN (08:42)
[2024-07-18] MEDS ORDERED: ONDANSETRON INJ 2 MG/ML 2 ML VIAL IV PRN ×2 (08:42→09:19)
[2024-07-18] MEDS ORDERED: HYDROmorphone INJ 0.5 MG/0.5 ML SYR IV PRN ×2 (08:42→09:19)
[2024-07-18] MEDS ORDERED: diphenhydrAMINE 50 MG/ML VIAL IV PRN (08:42)
[2024-07-18] MEDS ORDERED: SENNA 8.6 MG TAB PO PRN (08:42)
--- NOTE | 2024-07-18 08:53 | Operative Report ---
Post Operative Report Pre & Post Diagnosis Operation Date: 07/18/24 07:30 Pre-Op Diagnosis: 38 wk intrauterine Prior c/section, desires repeat section CHTN in Obesity Polyhydramnios Post-Op Diagnosis: same I identified the patient and participated in the time-out.: Yes Procedure Operation Date: 07/18/24 07:30 Actual Procedures p Repeat Low Transverse Section (Delivery of Baby Through Abdominal Incision) for living male child at 0812(Bilateral) - Valerie Francis MD, FACOG Surgeon Valerie Francis MD, FACOG Leather Repairer PGY 1 Quantitative Blood Loss (QBL) 380 Findings Consistent with Post-Op Diagnosis (viable female, normal uterus tubes and ovaries bilaterally) Fluids 1300 Specimens cord blood Drains sams Anesthesia Type Spinal Complications none Disposition Accompanied Patient To Recovery: No Disposition: L&D Indications 34yo at 38wks for planned repeat c/s with complicated by chtn and unmanaged diabetes, with polyhydramnios, LGA and obesity. Description of Procedure The patient was taken to the operating room and identified. After adequate anesthesia was obtained, she was placed in the supine position with a leftward tilt on the operating table and prepped and draped in the usual sterile fashion. A sams catheter had already been placed. The knife was used to create a Pfannensteil skin incision that was carried down to the underlying layer of fascia. The fascia was nicked in the midline and this opening was extended laterally using Maloney scissors. Amira clamps were placed on the superior and inferior aspect of the fascial incision tenting it upward and the underlying rectus muscles were dissected off the overlying fascia both sharply and bluntly using Maloney scissors. The rectus muscles were bluntly in the midline. The peritoneal cavity was bluntly entered into. This opening was stretched. The bladder blade was placed. The vesicouterine peritoneum was elevated and opened up into and the bladder flap was created digitally and bladder blade was replaced. The knife was used to create a hysterotomy and this opening was stretched. The operators hand was placed through the hysterotomy and the bladder blade was removed. The head was elevated and flexed and with fundal pressure the head was delivered. The shoulders and body were rapidly delivered. The cord was clamped and cut and the 's mouth and nares were bulb suction. The was handed off to the awaiting pediatricians. Cord blood was obtained. The placenta was manually expressed. The uterus was exteriorized and cleared of all clots and debris. Dilute IV Pitocin was begun. The uterine tone was improving. The hysterotomy was closed in a running interlocking fashion using 0 Vicryl followed by a second imbricating layer of 0 Vicryl. The hysterotomy was hemostatic. The pelvis was irrigated. The uterus was returned to the abdomen. The gutters were cleared of all clots and debris. The hysterotomy was reinspected and noted to be hemostatic. The fascia was then closed in running fashion using 0 Vicryl. The subcutaneous fat was copiously irrigated and reapproximated using 2-0 chromic. The skin was closed in a subcuticular fashion using 4-0 monocryl. At this point the procedure was terminated. The patient was transferred to the recovery room in stable condition. All sponge, lap and needle counts are correct x2. I attest to the content of the Intraoperative Record and any orders documented therein. Any exceptions are noted below. OB Procedure Charges 49084
[2024-07-18] MEDS ORDERED: NALOXONE HCL 1 MG in SODIUM CHLORIDE 0.9% 1,000 ML IV PRN (09:19)
[2024-07-18] MEDS ORDERED: MoRPHine SULFATE 2 MG/ML CARP IV PRN (09:19)
[2024-07-18] MEDS ORDERED: NALOXONE HCL 0.4 MG/1 ML VIAL/CARP IV PRN (09:19)
[2024-07-18] MEDS ORDERED: METOCLOPRAMIDE HCL 10 MG in SODIUM CHLORIDE 0.9% 50 ML IV PRN (09:19)
[2024-07-18] MEDS ORDERED: KETOROLAC 30 MG/ML VIAL IV PRN (09:19)
[2024-07-18] MEDS ORDERED: ACETAMINOPHEN 1,000 MG/100 ML VIAL IV PRN (09:19)
[2024-07-18] MEDS ORDERED: ePHEDrine sulfate 50 MG/ML AMP IV PRN (09:19)
[2024-07-18] MEDS ORDERED: NALOXONE HCL 0.08 MG in SYRINGE 1.8 ML IV PRN (09:19)
[2024-07-18] MEDS ORDERED: MEPERIDINE HCL 25 MG/ML CARP/VIAL IV PRN (09:19)
[2024-07-18] MEDS ORDERED: PROMETHAZINE 6.25 MG/50.25 ML BAG IV PRN (09:19)
[2024-07-18] MEDS: KETOROLAC 30 MG/ML VIAL IV SCH (09:21)
[2024-07-18] MEDS: DIPHTHER/TETAN/PERTUS Vaccine (Tdap, Adol/Adult) 0.5mL IM ONE (09:27)
[2024-07-18] MEDS: LABETALOL HCL 200 MG TAB PO SCH (09:28)
[2024-07-18] MEDS ORDERED: DC INTRASPINAL MORPHINE SCH (09:30)
[2024-07-18] MEDS ORDERED: NO NARCOTICS OR SEDATIVES SCH (09:30)
[2024-07-18] MEDS: diphenhydrAMINE 50 MG/ML VIAL IV PRN (09:55)
[2024-07-18] MEDS: NALBUPHINE HCL INJ 10 MG/ML AMP IV PRN (11:58)
[2024-07-18] MEDS: LEVOTHYROXINE SODIUM 75 MCG TABLET PO SCH (12:26)
--- NOTE | 2024-07-18 12:30 | Anesthesiology Progress Note ---
Date of Service July 18, 2024 Anesthesia Post Procedure Vital Signs Vital Signs: Temp Pulse Resp BP Pulse Ox 07/18/24 11:00 16 07/18/24 10:59 75 140/78 07/18/24 10:58 72 95 07/18/24 10:57 85 93 07/18/24 10:53 75 96 07/18/24 10:48 79 135/73 99 07/18/24 10:43 71 96 07/18/24 10:38 72 97 07/18/24 10:33 67 97 07/18/24 10:30 16 07/18/24 10:28 98 07/18/24 10:28 71 07/18/24 10:28 68 122/70 07/18/24 10:23 73 96 07/18/24 10:18 67 98 07/18/24 10:13 78 99 07/18/24 10:08 67 98 07/18/24 10:03 70 96 07/18/24 10:01 68 135/78 07/18/24 10:00 18 07/18/24 09:58 70 98 07/18/24 09:53 64 96 07/18/24 09:51 125/72 07/18/24 09:50 16 07/18/24 09:49 81 92 07/18/24 09:48 81 95 07/18/24 09:43 65 97 07/18/24 09:41 62 122/60 07/18/24 09:40 16 07/18/24 09:38 77 99 07/18/24 09:33 97 07/18/24 09:33 73 07/18/24 09:33 77 91 07/18/24 09:31 117/67 07/18/24 09:30 18 07/18/24 09:28 70 99 07/18/24 09:24 69 123/64 07/18/24 09:23 68 99 07/18/24 09:20 16 07/18/24 09:18 61 97 07/18/24 09:13 70 97 07/18/24 09:11 61 127/71 07/18/24 09:10 16 07/18/24 09:08 65 97 07/18/24 09:07 67 94 07/18/24 09:03 64 99 07/18/24 09:00 36.4 C L 70 16 117/76 07/18/24 08:58 98 07/18/24 08:58 63 07/18/24 08:58 64 127/68 94 07/18/24 06:00 37.0 C 88 18 131/82 07/18/24 05:53 37.0 C 88 18 Pain Intensity Abdomen: Pain Intensity: 2 Transfer of Care Handoff Completed per policy Notes Mental Status: alert / awake / arousable and participated in evaluation Nausea / Vomiting: adequately controlled Pain: adequately controlled Airway Patency, RR, SpO2: stable & adequate BP & HR: stable & adequate Hydration State: stable & adequate Neuraxial Anesthesia: was administered and sensory block is resolving Anesthetic Complications: no major complications apparent and Pt Satisfied with anesthetic care
[2024-07-18] MEDS: ACETAMINOPHEN 325 MG TAB PO SCH (14:58)
[2024-07-18] MEDS: SIMETHICONE 80 MG CHEW PO SCH (14:59)
[2024-07-18] MEDS: DOCUSATE SODIUM 100 MG CAP PO SCH (20:57)
[2024-07-18] MEDS ORDERED: Nursing to Pharmacy Communication SCH (22:30)
[2024-07-18] MEDS: IBUPROFEN 600 MG TAB PO SCH (23:31)
[2024-07-19] MEDS: MoRPHine SULFATE PF 1 MG/ML 10 ML AMP/VIAL INT SPINAL ONE (00:05)
[2024-07-19] MEDS: SODIUM CHLORIDE 0.9% 1,000 ML IV SCH (00:05)
[2024-07-19] MEDS ORDERED: PROMETHAZINE 12.5 MG/50.5 ML BAG IV PRN (03:20)
[2024-07-19] MEDS ORDERED: diphenhydrAMINE Capsule 25 MG CAP PO PRN (03:20)
[2024-07-19] MEDS ORDERED: diphenhydrAMINE 50 MG/ML VIAL IV PRN (03:20)
[2024-07-19] MEDS ORDERED: HYDROmorphone INJ 0.5 MG/0.5 ML SYR IV PRN (03:20)
--- NOTE | 2024-07-19 07:41 | Obstetrical Progress Note ---
Date of Service July 19, 2024 Assessment & Plan (1) care and examination: Plan stable, routine care. labs pending. eating, voiding, ambulating. breast feeding. Day #:: 1 Subjective Ambulation: ambulating normally Voiding: no voiding problems Passing Gas:: Yes Diet Tolerance:: regular diet Lochia:: Small Feeding Type:: breast feeding no pain issues. Constitutional: + as per Subjective / HPI Physical Exam Constitutional WD/WN, vitals as above Respiratory normal respiratory effort, lungs clear to auscultation Cardiovascular Rate/Rhythm: regular rate and regular rhythm Gastrointestinal (Abdomen) Inspection/Auscultation: abdomen normal to inspection and + abdominal surgical incision (c/d/i) Percussion/Palpation: abdomen soft Fundus firm 2cm down Musculoskeletal nt calves [] edema Neurologic grossly normal Psychiatric A+Ox3, euthymic affect Results & Data Vital Signs (Past 12 Hours) Vital Signs Temp Pulse Resp BP Pulse Ox O2 Del Method 07/19/24 03:40 18 96 07/19/24 03:40 97.9 F 84 18 116/78 96 Room Air 07/19/24 02:00 18 93 07/19/24 01:00 18 94 07/19/24 00:20 18 96 07/18/24 23:30 98.1 F 82 18 144/78 H 98 Room Air 07/18/24 23:30 18 98 07/18/24 22:00 18 07/18/24 21:45 18 07/18/24 20:50 18 97 07/18/24 20:50 98.2 F 81 18 133/73 97 Room Air
[2024-07-19] MEDS ORDERED: KETOROLAC 30 MG/ML VIAL IV PRN (08:43)
[2024-07-19] MEDS ORDERED: IBUPROFEN 600 MG TAB PO SCH (08:45)
[2024-07-19] MEDS: FERROUS SULFATE 325 MG TAB PO SCH (08:46)
[2024-07-19] MEDS: PRENATAL VITAMIN 1 TAB PO SCH (08:46)
[2024-07-19 09:22] LABS: Hematocrit (blood only) 31.6 % (37.0-47.0); Hemoglobin 10.5 g/dl (12.0-16.0); Mean Corpuscular Hemoglobin 28.4 pg (25.0-34.0); Mean Corpuscular Hgb Conc 33.2 g/dL (32.0-36.0); Mean Corpuscular Volume 85.4 fL (80.0-100.0); Mean Platelet Volume 10.1 fL (9.4-12.4); Platelet Count 207 K/uL (130-400); RDW Coefficient of Variation 14.3 % (11.5-14.5); RDW Standard Deviation 43.7 fL (36.4-46.3); White Blood Count 7.61 K/ul (4.8-10.8)
[2024-07-19] MEDS: oxyCODONE HCL IR 5 MG TAB (IMMEDIATE RELEASE) PO PRN (15:08)
[2024-07-19] MEDS: MAGNESIUM HYDROXIDE SUSP 30 ML UDC PO PRN (16:48)
[2024-07-19] MEDS: bisacodyL 5 MG TABEC PO SCH (20:26)
[2024-07-19 23:58] VITALS: O2SAT 96
[2024-07-20 07:09] LABS: Hemoglobin 10.3 g/dl (12.0-16.0)
[2024-07-20] MEDS ORDERED: bisacodyL 10 MG SUPP PR PRN (08:43)
--- NOTE | 2024-07-20 08:49 | Obstetrical Progress Note ---
Date of Service July 20, 2024 Patient doing well. Minimal bleeding, no extremity pain she has no calf tenderness she is tolerating a regular diet she is voiding well she has no depression Assessment & Plan (1) care and examination: Plan Postoperative from section patient meets discharge criteria as she is ambulating well tolerating an oral diet has minimal bleeding and no extremity pain. Discharge instructions were reviewed and prescriptions were sent to her pharmacy of choice patient advised to call with any concerns and follow-up in the office discussed Subjective Ambulation: ambulating normally Physical Exam Constitutional WD/WN, vitals as above well developed and well nourished Respiratory normal respiratory effort, lungs clear to auscultation normal respiratory effort Cardiovascular RRR, no murmur, no edema Gastrointestinal (Abdomen) normal bowel sounds, soft, nontender, no hepatosplenomegaly Results & Data Vital Signs (Past 12 Hours) Vital Signs Temp Pulse Resp BP Pulse Ox O2 Del Method 07/19/24 23:35 97.7 F 88 18 112/74 96 Room Air
[2024-07-20 10:02] VITALS: BP 124/78; PULSE 85; RESP 16; TEMP 98.1
[2024-07-20] MEDS: IBUPROFEN 600 MG TAB PO PRN (10:48)
[2024-07-20] MEDS ORDERED: ACETAMINOPHEN 325 MG TAB PO PRN (14:43)
--- NOTE | 2024-07-21 18:55 | Discharge Summary ---
Date of Service July 21, 2024 Admission HPI Per Admitting Provider 34yo at 38+wks for planned repeat c/s with history of prior c/s and chronic hypertension in . She notes taking her labetalol. Never did gdm testing and spilling glucose in urine today. Has polyhydramnios on u/s, including dvp today, mild. Baby LGA and so we suspect untreated gdm. +FM. No rom or vb. No ctx PNC c/b 1. CHTN, on meds 2. Polyhydramnios 3. Obesity. 4. Likely GDM, refused testing, LGA fetus. 5. Vaping, has been enc to quit 6. Prior complicated by Preeclampsia, taking baby asa 7. Hypothyroid PNL rh pos, ri, gbs neg OBH: c/s, preeclampsia, failed induction GY[facility]: nl paps, no stds Discharge Data Consultations 07/18/24 05:37 Consult Anesthesiology Stat Procedures Performed Operation Date: 07/18/24 07:30 Actual Procedures p Repeat Low Transverse Section (Delivery of Baby Through Abdominal Incision) for living male child at 0812(Bilateral) - Valerie Francis MD, [facility] Course (1) care and examination: Plan The patient underwent the above stated procedure without incident and her postoperative course and recovery was uncomplicated. On her postoperative day #2 she was tolerating a regular diet, voiding spontaneously, ambulating without problem and was using oral meds for adequate pain control. Her postoperative hemoglobin was 10.5. She was given written and verbal discharge instructions and told to followup in office at 6wks. She was given appropriate pain medicine prescriptions. Coding Level of Care Code None Diagnoses care and examination Z39.2
== END 2024-07-20 16:00 | disposition home or self-care (01) | DRG 787 ==
LOC: 4S1 05:39 → EDSTATUS 07:30 → 4E2 11:20
DX: Z79.899 Other long term (current) drug therapy; O99.214 Obesity complicating childbirth; Z79.890 Hormone replacement therapy; O99.334 Smoking (tobacco) complicating childbirth; O99.284 Endocrine, nutritional and metabolic diseases complicating childbirth; Z3A.38 38 weeks gestation of pregnancy; O34.211 Maternal care for low transverse scar from previous cesarean delivery; E66.9 Obesity, unspecified; O10.02 Pre-existing essential hypertension complicating childbirth; E03.9 Hypothyroidism, unspecified; Z37.0 Single live birth; O24.429 Gestational diabetes mellitus in childbirth, unspecified control; O40.3XX0 Polyhydramnios, third trimester, not applicable or unspecified; F17.290 Nicotine dependence, other tobacco product, uncomplicated